=== PATIENT | female | born 2005 | race Caucasian/White ===

== ENCOUNTER 2024-10-04 23:51 | Emergency (ER) | payer OTHER, SELFPAY ==
[2024-10-05 00:06] VITALS: BP 112/67; PULSE 87; RESP 16; TEMP 37; O2SAT 99; BMI 19.6
== END 2024-10-05 03:35 | disposition left against medical advice (07) ==
LOC: HO.ED 10-05 03:23
PROVIDERS: Emergency Provider Emergency Medicine
DX: H92.01 Otalgia, right ear (principal); Z53.21 Procedure and treatment not carried out due to patient leaving prior to being seen by health care provider
CPT/HCPCS: 99281

== ENCOUNTER 2024-12-24 14:33 | Outpatient (AMB) | payer OTHER, SELFPAY ==
--- NOTE | 2024-12-24 14:42 | A.OFFPC_ITS ---
Vital Signs 12/24/24 14:48 Height 5 ft 6 in Weight 121 lb 6 oz BMI 19.6 BP 102/58 L Blood Pressure Location Rt brachial Position Sitting Respiration 12 Pulse 87 Pulse Source Pulse Oximeter Pulse Oximetry (%) 98 Oxygen Delivery Method Room Air Intake Visit Reasons: transverse abdominal muscle surgeon est care Allergies No Known Allergies Allergy (Unverified 10/05/24 00:08) Medication List - Last Reconciled 12/24/24 by Dinah Richmond PA-C sertraline mg PO DAILY Tobacco use date assessed: 12/24/24 Dental Screening Dental Screen Date: 12/24/24 Did you have a dental visit in the last 12 months?: Yes Did you have a dental problem in the last 6 months where you did not have access to dental care?: No Was dental information given to patient?: Patient has dentist HPI transverse abdominal muscle surgeon est care HPI Details Patient is a 19-year-old female who presents today for a new patient visit. She is transferring from [facility]: she is currently on sertaline 25 mg and doing well. Booking Officer: Never had a Pap smear. Not currently sexually active but currently in a relationship and debating becoming sexually active. She is interested in the idea of starting medication for prevention of but is not sure which way to go with this. Fam hx: paternal grandfather had colon ca at age 70 PFS Surgical History (Updated 12/24/24 @ 14:54 by Minna Yi CMA) No pertinent past surgical history Family History (Updated 12/24/24 @ 14:53 by Minna Yi CMA) Maternal Grandmother Anxiety Paternal Uncle Schizoaffective disorder Father Colon cancer Other FH: mental illness Social History (Updated 12/24/24 @ 14:54 by Minna Yi CMA) Housing: House Alcohol intake: current Patient Tobacco Use Status: Never used Tobacco e-Cigarette/Vaping Use: Never Used Second Hand Smoke Exposure: No service: No Current occupational status: employed Current occupation: [employer] Current occupational exposures/hazards: No Cognitive needs: No Hearing needs: No Vision needs: No Questionnaire PHQ-9 Over the last 2 weeks, how often have you been bothered by any of the following problems? 1. Little interest or pleasure in doing things: not at all 2. Feeling down, depressed, or hopeless: several days 3. Trouble falling or staying asleep, or sleeping too much: several days 4. Feeling tired or having little energy: several days 5. Poor appetite or overeating: not at all 6. Feeling bad about yourself - or that you are a failure or have let yourself or your family down: not at all 7. Trouble concentrating on things, such as reading the newspaper or watching television: not at all 8. Moving or speaking so slowly that other people could have noticed. Or the opposite - being so fidgety or restless that you have been moving around a lot more than usual: not at all 9. Thoughts that you would be better off or of hurting yourself in some way: not at all Total score: 3 Depression Screening Interpretation: Positive (states weather related) Depression Screening Follow-up: Existing condition, In treatment and Follow-up Visit Requested Depression Screening Done: Yes 23694 - PHQ-9 Billing: Yes Source: Developed by Drs. Paolo Graff, Alicja Ochoa, Milad Chamorro and colleagues, with an educational blayne from [employer]. Thrive Questionnaire Date Thrive assessed: 12/18/24 I am a: Patient What is your living situation today?: I have a steady place to live Within the past 12 months, did the food you bought not last and you didn't have the money to get more?: Never true Within the past 12 months, did you worry whether your food would run out before you got money to buy more?: Never true Do you have trouble paying for medicines?: No Do you have trouble getting transportation to medical appointments?: No Do you have trouble paying your heating and electricity bill?: No Do you have trouble taking care of your child, family member or friend?: No Do you have trouble with day-to-day activities such as bathing, preparing meals, shopping, managing finances, etc.?: No Are you currently unemployed and looking for a job?: No Are you interested in more education?: No Please select the resources that you would like help with: None Currently or been in a relationship where the following occur: No concerns reported THRIVE Score: 0 AUDIT C Alcohol Use Questionnaire (AUDIT-C) 1. How often do you have a drink containing alcohol?: Monthly or less 2. How many drinks containing alcohol do you have on a typical day when you are drinking?: 3 or 4 3. How often do you have six or more drinks on one occasion?: Never Total Score: 2 STEVEN-7 AMB Questionnaire STEVEN-7 Date STEVEN - 7 assessed: 12/24/24 Feeling nervous, anxious, or on edge: 1 = Several days Not being able to stop or control worryin = Several days Worrying too much about different things: 1 = Several days Trouble relaxin = Several days Being so restless that it is hard to sit still: 0 = Not at all Becoming easily annoyed or irritable: 1 = Several days Feeling afraid as if something awful might happen: 1 = Several days Total STEVEN-7 score (0-4 normal; 5-9 mild; 10-14 moderate; 15-21 severe): 6 Source: Developed by Drs. Paolo Graff, Alicja Ochoa, Milad Chamorro and colleagues, with an educational blayne from [employer]. STEVEN-7 Assessment Billing STEVEN-7 Assessment Tool: STEVEN-7 Assessment 79754 Physical exam (Primary Care) Vital Signs: Last Vital Signs Pulse 87 12/24/24 14:48 Resp 12 12/24/24 14:48 BP 102/58 L 12/24/24 14:48 Pulse Ox 98 12/24/24 14:48 Oxygen Delivery Method Room Air 12/24/24 14:48 BMI result Body Mass Index 19.6 Tobacco/Smoking Status: Tobacco use Status Tobacco use date assessed 12/24/24 12/24/24 14:51 Patient Tobacco Use Status Never used Tobacco 12/24/24 14:54 e-Cigarette/Vaping Use Never Used 12/24/24 14:54 PHQ-9: PHQ-9 Score PHQ-9: Total score 3 12/24/24 14:56 Depression Screening Interpretation: Positive (states weather related) Depression Screening Follow-up: Existing condition, In treatment and Follow-up Visit Requested Thrive Assessment: Date of Thrive Assessment Date Thrive assessed 12/18/24 12/24/24 14:44 Currently or been in a relationship where the following occur: No concerns reported Const Orientation/consciousness: patient oriented x3 HENMT Ears: hearing grossly normal bilaterally Neck Thyroid: Thyroid normal Lymphatic: no lymphadenopathy noted Resp Auscultation: clear to auscultation bilaterally Cardio Rate: regular rate Rhythm: regular rhythm Heart sounds: S1 normal heart sound present and S2 normal heart sound present GI Inspection: Yes normal to inspection Palpation (GI): Soft to palpation and Other GI palpation findings present (nontender, no cva tenderness) Auscultation: normoactive bowel sounds Rectal Exam - Female: deferred Skin General skin exam: no rashes or lesions noted Neuro General: patient oriented x3, gait normal and no focal motor deficits Coding Level of Care Code New Pt Level 3 (42116) Complex EM visit Add On G2211 Diagnoses ROSAMARIA (iron deficiency anemia) D50.9 Generalized anxiety disorder F41.1 Additional Codes STEVEN-7 Assessment Billing - SETVEN-7 Assessment Tool: STEVEN-7 Assessment 54823 ([id number]) PHQ-9 - 06181 - PHQ-9 Billing: Yes ([id number]) Assessment & Plan Assessment & Plan (1) ROSAMARIA (iron deficiency anemia): Code(s): D50.9 - Iron deficiency anemia, unspecified Category: Medical Plan: Labs ordered today. We will follow up pending test results (2) Generalized anxiety disorder: Code(s): F41.1 - Generalized anxiety disorder Category: Medical Plan: Continue sertraline Orders: Orders Complete Blood Count Auto Diff Today D50.9 - Iron deficiency anemia, unspecified, F41.1 - Generalized anxiety disorder, Z13.220 - Encounter for screening for lipoid disorders IRON PROFILE Today D50.9 - Iron deficiency anemia, unspecified, F41.1 - Generalized anxiety disorder, Z13.220 - Encounter for screening for lipoid disorders Vitamin B12 and Folate Today D50.9 - Iron deficiency anemia, unspecified, F41.1 - Generalized anxiety disorder, Z13.220 - Encounter for screening for lipoid disorders TSH reflex Free T4 Today D50.9 - Iron deficiency anemia, unspecified, F41.1 - Generalized anxiety disorder, Z13.220 - Encounter for screening for lipoid disorders Comprehensive [place]. Panel Fast Today D50.9 - Iron deficiency anemia, unspecified, F41.1 - Generalized anxiety disorder, Z13.220 - Encounter for screening for lipoid disorders Lipid Panel Today D50.9 - Iron deficiency anemia, unspecified, F41.1 - Generalized anxiety disorder, Z13.220 - Encounter for screening for lipoid disorders Referrals 2 [facility] Referral Z01.419 - Encounter for gynecological examination (general) (routine) without abnormal findings Medications: New sertraline 25 mg PO DAILY 90 tabs 3RF
[2024-12-24 14:48] VITALS: BP 102/58; PULSE 87; RESP 12; O2SAT 98; BMI 19.6
--- OUTSIDE RECORDS SUMMARY | 2024-12-24 17:14 | XMS_ITS | Clinical Summary ---
Author Organization [facility] Address [address] [place] [phone] Phone Care Team Providers Care Instructor Flying Name Role Phone Unavailable Primary Care Provider Unavailabl e Allergies No known active allergies Medications Vitamins 28-0.8 MG tabletIndication s:Fatigue, unspecified type,Iron deficiency TAKE 1 TABLET BY MOUTH EVERY DAY 90 tablet 2 Active Additional Information Patient not taking.Reported on 04/12/2023 Mefenamic Acid 250 MG capsuleIndicatio ns:Dysmenorrhea Take 1 capsule by mouth 3 (three) times a day as needed (menstrual cramps). 28 capsule 3 3 Active Additional Information Patient not taking.Reported on 08/23/2023 sertraline 25 MG tabletIndication s:Other mixed anxiety disorders Take 1 tablet (25 mg total) by mouth once daily. 90 tablet 2 4 Active ferrous gluconate 324 (38 Fe) MG tabletIndication s:Iron deficiency Take 1 tablet (324 mg total) by mouth daily with breakfast. 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 Benign and not concerning for any genetic syndrome. Assessment & Plan (04/12/2023 11:01 AM EDT): See Sydnie Ochoa Weight loss 04/12/2023 Overview (04/15/2024): Is not ill appearing. No obvious increased loss or decreased intake, save says ate less with anxiety/panic in [place]. Probably true but should rule out hypo/hyper glycemia (DM), inflammatory disease, thyroid dysfunction, also check vitamin d 05/29: all labs normal, may be skipping meals 04/29: not sick but lost a little wt. Sips meals. Assessment & Plan (04/15/2024 2:35 PM EDT): Make sure not to skip meals and eat enough Assessment & Plan (08/25/2023 12:13 PM EST): Has resolved Assessment & Plan (05/31/2023 7:23 PM EDT): Am unsure why is losing wt, ?skipping meals. Suggested protein shakes midday, make sure not to skip meal Assessment & Plan (04/12/2023 2:51 PM EDT): See labs, diet discussed, importance of f/u stressed. Generalized anxiety disorder 06/13/2018 Overview (04/15/2024): Diagnosed with separation anxiety, school phobia,panic attacks by DG 06/11/18, started on sertraline 25mg at that time. Did well with relaxation rx, and skill building seen off and on, still with some anxiety sx but overall doing well. 11/08/21: Now doing very well, on low dose sertraline, despite no f/u in a year 04/28: no follow up with me for 17 months. Not doing well. 08/29: now doing well, enjoying school, work, family, friends, no panic attacks since trip to [place] in the summer. 11/30: continues to do well. Would like to stay on low dose sertraline. 04/29: going through some rough patches but no panic attacks, is turning to people who love me like family. Had issues with a relationship with a young man. Now broke up. Would like to see a therapist, not increase her med. Assessment & Plan (04/15/2024 2:33 PM EDT): Contact Celestina Linares or Cassie Johnny , , and we will also help. Assessment & Plan (12/06/2023 4:09 PM EST): Keep up the good work! Enjoy your working out/running as a meditative practice. Assessment & Plan (08/23/2023 4:24 PM EST): Doing very well. Continue present plan, anxiety sx discussed. Assessment & Plan (05/31/2023 4:48 PM EDT): Doing better now. Continue sertraline. Get fresh air, exercise. Practice relaxation, with music. Assessment & Plan (04/12/2023 10:56 AM EDT): Take a full dose of sertraline. Work on your relaxation skills. See a therapist: Yoana Gray: Assessment & Plan (11/22/2021 10:25 AM EST): Will wean to one half of a tab of sertraline. Continue to do everything you're doing, but get more fresh air. Take fish oil, twice a day. Consider counseling. Assessment & Plan (11/09/2021 9:48 AM EST): Continue med, and all the good work you are doing. Will follow up at Well visit. Remember that you need to come in to see me every 3 months, however. Assessment & Plan (11/16/2020 10:07 AM EST): Practice the diaphragmatic breathing, and imagery around singing, supported by your friends in the choir, and by God. In your journal, write down several things you are grateful for every day, and one thing that happened that was unexpected. Get out for fresh air and exercise daily. See our therapist Trang Otero. Assessment & Plan (07/20/2020 8:00 AM EDT): Generally doing well, but still with some anxious sx, preoccupations, though better on sertraline. I reviewed deep relaxation breathing on Starfish pose, suggested doing this three times a day and addressing anxiety head on, agree with confiding in trusted elder - MGM. Will do earlier f/u - 1 month Assessment & Plan (03/29/2020 10:18 AM EDT): Is doing great. Continue Sertraline. Keep up a regular schedule as though still in school, except on weekends, do your school work, go outside, exercise, go to bed at a reasonable hour On line, sing, play music, dance if you like, have a family dinner, have alone time. General Guidelines: www.healthychildren.org Nature and Gardening: Https://[place].[employer]/ResourceType/infosheet/, Https://WoraPay; www.childrenandnature.org Www.natureplayqld.org.au (in [place], still good for here) Https://Arboribus.org/ Academic and creative: www.Nema Labs.org; www.blog.Qnary.org Tips for online learning: www.SkyJam Drawing: On YouTube: Lunch Doodle with moWillems, and Draw everyday with EFRAÍN, also www.Euro[employer]ital BITEX Physical Activity [place] CellVir -Like them for workouts Www.Sicubo.[employer] Reaching out: www.Weevesforpeaceglobal.org Music: [employer] Quaranthemes with Bryant Joshua 6-9am, with sing along . Look for local music, arts, theater, kids stuff streaming on line Assessment & Plan (08/07/2018 1:46 PM EDT): Managed by Dr. Gray. Doing much better on sertraline, though did endorse worry a lot often on YPSC-17, but better per patient. Still has paranoia (didn't want to eat the candy last night from Halloween due concern that something might be in them). Also, appetite is back and she has gained weight since last visit (when this was a concern). Resolved Problems Problem Noted Date Diagnosed Date Resolved Date Panic attacks 04/12/2023 08/23/2023 Overview (04/12/2023): Had panic attacks on trip to [place], see history, when had stress of mom's fall, and drive [place], had decreased sertraline, not in counseling Assessment & Plan (08/23/2023 4:24 PM EST): Better now. Assessment & Plan (05/31/2023 4:46 PM EDT): Better now. Assessment & Plan (04/12/2023 2:49 PM EDT): See anxiety disorders above, needs to take full 25 mg, begin counseling, importance of follow up stressed COVID-19 virus infection 11/22/2021 Overview (11/22/2021): In May,, mild illness Menorrhagia with regular cycle 08/07/2018 04/15/2024 Overview (04/15/2024): NSAIDs, heating pads. 04/28: recurrent, sister, age 28 with endometriosis, rare at this age. Stress may play a role 05/29: better with ponstel, discussed OCP but is looking into depo 08/29: says periods are better, still deciding on control, gets some cramps. But not very painful, still heavy. Changed dx 12/28: menses not painful but heavy, 7 days. Will check iron, cbc 04/29: menses now normal Assessment & Plan (12/06/2023 4:11 PM EST): Make sure to get plenty of iron in your diet Assessment & Plan (08/23/2023 4:26 PM EST): Make sure to get lots of iron in diet. Use control if you have sexual activity. Assessment & Plan (05/31/2023 7:24 PM EDT): See above. Assessment & Plan (04/12/2023 2:53 PM EDT): Take a vitamin b complex, try ponstel, work on your anxiety, eat well, gain some weight, consider oral contraceptives, and then if not improving, trans vaginal US Assessment & Plan (11/22/2021 9:54 AM EST): Better now. Assessment & Plan (11/09/2021 9:49 AM EST): Better now Assessment & Plan (11/15/2020 9:55 PM EST): Seems better now. Assessment & Plan (08/07/2018 1:45 PM EDT): Given heavy period, will check CBC. I also discussed further testing (coagulation studies, vWD studies), but mom doesn't think this is necessary. Sleep disturbance 06/13/2018 07/03/2018 Overview (06/13/2018): Melatonin 5mg Encounters Date Type Department Care Team Description 11/03/2024 Telephone [facility] [address] [place] [address] Jenni Orourke MD PE 10/14/2024 Telephone [facility] [address] [place] [address] Provider, MD Janine medical records 10/04/2024 11:51 PM EST - 10/05/2024 3:35 AM EST Hospital Encounter [facility] - Patient Ping from Last 3 Months Immunizations Immunization Administration Dates Next Due DTaP 5 08/05/2007, 5,01/04/2004,11/03,2003 HPV Vaccine 9 Valent 04/29/2017,08/22/2016 Hep A, ped/adol 08/09/2015,04/03/2011 Hep B, ped/adol 04/03/2004,01/04/2004,2003 Hib (HbOC) 03/01/2005 Hib (PRP-T) 01/04/2004,2003,2003 IPV 08/05/2007, 5,04/03/2004,09/15 Influenza, injectable, quadrivalent 08/09/2015 Influenza, injectable, quadr ivalent, preservative free 09/01/2019,08/07/2018,08/22/2016 Influenza, intranasal, quadrivalent 08/04/2013 Influenza, intranasal, trivalent 07/13/2011 MMR 01/09/2005 MMRV 08/05/2007 Meningococcal B Trumenba 04/12/2023,11/22/2021 Meningococcal Conj (Menactra) MCV4P 09/01/2019,1 10/09/2014 Pneumococcal Conjugate 04/16/2005,2004,2003,09/15 Tdap 08/09/2015 Varicella 01/09/2005 Family History Medical History Relation Name Comments No Known Problems Father Aleksandar No Known Problems Mother Jie No Known Problems Sister Naila Relation Name Status Comments Father Aleksandar Alive Father: Alive a nd well Father's Brother Paternal un lj: Schizophrenia Maternal Grandmother Materna l grandmother: Depression, Anxiety Mother Jie Alive Mother: Rheumat oid arthritis Other No family histo ry of Thyroid disease, No family history of *Sudden /AL under 55, No family history of Migraines, No family history of Asthma, No family history of *CVA/Stroke, No family history of Diabetes mellitus, No family history of Seizure disorder, No family history of Developmental dislocation of hip, No family history of Hyperlipidemia, No family history of Strabismus, No family history of *Heart Disease, No family history of Deafness, No family history of Obesity, No family history of ADD/ADHD, No family history of Cancer Sister Naila Alive Sister: Alive a nd well Social History Tobacco Use Types Packs/Day Years Used Date Smoking Tobacco: Never Smokeless Tobacco: Never Tobacco Cessation:Counseling Given: Yes Comments:Never smoker Alcohol Use Standard Drinks/Week Comments No 0 (1 standard drink = 0.6 oz pur e alcohol) Hunger/Food Answer Date Recorded In the last 12 months, did y ou or your family ever eat less than you felt you should because there wasn't enough money for food? No 04/15/2024 Stable Housing Answer Date Recorded Are you worried that in the next 2 months you may not have stable housing? No 04/15/2024 Transportation Concerns Answer Date Rec orded In the last 12 months, have you or your family ever had to go without healthcare because you didn't have a way to get there? No 04/15/2024 Hazards in Home Answer Date Recorded Think about the place you li ve. Do you have problems with any of the following? Pests (mice or roaches), mold, no/not working smoke detectors, water leaks, no window guards. No 2023 Financing Utilities Answer Date Recorde d In the last 12 months, has t he electric, gas, oil, or water company threatened to shut off your services in your home? No 04/15/2024 Safety at Home Answer Date Recorded Are you or your family worried about feeling saf e in your home? No 04/15/2024 Outside Support Answer Date Recorded Do you feel that you need mo re support from other people or programs to help you care for yourself or your family? No 04/15/2024 Understanding Health Concerns Answer Da te Recorded Do you need help understandi ng your or your child's healthcare needs (diagnosis, medications, plan, etc.)? No 04/15/2024 Financing Health Concerns Answer Date R ecorded In the last 12 months, was t here a time when your child needed to see a doctor or get medications or supplies but could not because of cost? No 04/15/2024 Missing School or Work Answer Date Hector rded Did you or your child miss s chool or work because of a health problem that could have been avoided? No 04/15/2024 Child Education Answer Date Recorded Do you have concerns about y our/your child's learning or behavior in school, preschool, or daycare? No 04/15/2024 Comments No Sex and Gender Information Value Date Recorded Sex Assigned at Female 11/15/2020 9:44 PM EST Legal Sex Female 4:57 PM EDT Gender Identity Female 11/15/2020 9:44 PM EST Sexual Orientation Straight 11/15/2020 9: 44 PM EST Last Filed Vital Signs Vital Sign Reading Time Taken Comments Blood Pressure 97/63 04/15/2024 1:46 PM EDT Pulse 99 04/15/2024 1:46 PM EDT Temperature 36.3 ??C (97.3 ??F) 04/18/2023 10:52 AM E DT Respiratory Rate - - Oxygen Saturation - - Inhaled Oxygen Concentration - - Weight 50.5 kg (111 lb 6.4 oz) 04/15/2024 1:46 P M EDT Height 168.5 cm (5' 6.34 ) 04/15/2024 1:46 PM ED T Body Mass Index 17.8 04/15/2024 1:46 PM EDT Plan of Treatment Health Maintenance Due Date Last Done Comments Influenza Vaccines (#1) 2024 09/01/20 19, 08/07/2018, 08/22/2016, Additional history exists COVID-19 Vaccine (2023-2 5 season) 2024 11/07/2021, 10/10/2021 DTaP,Tdap,and Td Vaccines (7 - Td or Tdap) 08/09/2025 08/09/2015, 08/05/2007, 01/09/2005, Additional history exists Hepatitis B Vaccines Completed 04/03/2004, 01/04/2004, 2003 HIB Vaccines Completed 03/01/2005, 12/07, 2003, Additional history exists Pneumococcal Vaccine Completed 04/16/2005, 03/01/2005, 2003, Additional history exists IPV Vaccines Completed 08/05/2007, 02/2005, 04/03/2004, Additional history exists MMR Vaccines Completed 08/05/2007, 01/09/2005 Varicella Vaccines Completed 08/05/2007, 01/09/2005 Hepatitis A Vaccines Completed 08/09/2015, 04/03/20 11 HPV Vaccines Completed 04/29/2017, 08/22/2016 Meningococcal Vaccine Completed 09/01/2019, 015 Men B Vaccine Completed 04/12/2023, 11/22/2021 Procedures * Due to [place] state law, this organization might not be sharing sensitive test results. Procedure Name Priority Date/Time Associated Diagnosis Comments CHLAMYDIA AND GONORRHEA, AMPLIFIED Routine 04/15/2024 2:46 PM EDT Encounter for screening examination for chlamydial infection from Last 3 Months or Most Recently Relevant to Health Maintenance Results * Due to [place] state law, this organization might not be sharing sensitive test results. * Chlamydia and Gonorrhoea, Amplified (Urine) (04/15/2024 2:46 PM EDT) C trach TYRELL Negative Negative [facility] N gonorrhoeae TYRELL Negative Negative [facility] Urine (Urine, Random (not clean void)) 04/15/2024 2:46 PM EDT 04/15/2024 Comment:UR Narrative [facility] - 04/16/2024 4:08 PM EDT Performed at: ??01 - [facility], [address], [place], [place] [id number] Battery Container Tester: Levon Aguilar MD, Phone: ??[phone] us Niles Gray MD LAB MICROBIOLOGY - GENERAL OR DERABLES Final Result [facility] [address] [place] [address] from Last 3 Months or Most Recently Relevant to Health Maintenance
--- OUTSIDE RECORDS SUMMARY | 2024-12-24 17:14 | XMS_ITS | Encounter Summary ---
Author Organization [facility] Address [address] [place] [address] Phone Care Team Providers Care Automotive Welder Name Role Phone Provider, Janine NICHOLAS Primary Care Provider [phone] Reason for Visit * Reason Comments Med Refill Encounter Details Date Type Department Care Team ([facility] st Contact Info) Description 08/24/2019 Refill [facility] [address] [place] [address] Niles Rosales MD [address] [place] [address] Other mixed anxiety disorders Social History Tobacco Use Types Packs/Day Years Used Date Smoking Tobacco: Never Smokeless Tobacco: Never Comments:Never smoker Alcohol Use Standard Drinks/Week Comments No 0 (1 standard drink = 0.6 oz pur e alcohol) Hunger/Food Answer Date Recorded No 10/22/2018 Stable Housing Answer Date Recorded 0 10/22/2018 Transportation Concerns Answer Date Rec orded No 10/22/2018 Hazards in Home Answer Date Recorded No 10/22/2018 Financing Utilities Answer Date Recorde d No 10/22/2018 Safety at Home Answer Date Recorded No 10/22/2018 Outside Support Answer Date Recorded No 10/22/2018 Understanding Health Concerns Answer Da te Recorded No 10/22/2018 Financing Health Concerns Answer Date R ecorded No 10/22/2018 Missing School or Work Answer Date Hector rded No 10/22/2018 Comments Unknown Sex and Gender Information Value Date Recorded Sex Assigned at Female 11/15/2020 9:44 PM EST Legal Sex Female 4:57 PM EDT Gender Identity Female 11/15/2020 9:44 PM EST Sexual Orientation Straight 11/15/2020 9: 44 PM EST documented as of this encounter Miscellaneous Notes * Telephone Encounter - Meg Nino LPN - 08/24/2019 9:23 AM EST [facility] PCP BLL: pharm fax refill request sertaline. Pt has PE for 09/01. EH documented in this encounter Plan of Treatment Not on file documented as of this encounter Visit Diagnoses Diagnosis Other mixed anxiety disorders documented in this encounter Care Teams Automotive Welder Relationship Specialty Start Date End Date Provider, MD Janine [address] [place] [address] PCP - General Pediatrics 09/26/24 10/13/24 documented as of this encounter
--- OUTSIDE RECORDS SUMMARY | 2024-12-24 17:14 | XMS_ITS | Encounter Summary ---
Author Organization [facility] Address [address] [place] [address] Phone Care Team Providers Care Clinical Physician Assistant Name Role Phone Provider, Janine NICHOLAS Primary Care Provider [phone] Encounter Details Date Type Department Care Team (Late st Contact Info) Description 04/23/2012 Documentation [facility] [place] [address] [place] [address] Family Medicine, Physician [address] [place] [phone] Social History Tobacco Use Types Packs/Day Years Used Date Smoking Tobacco: Never Assessed Comments Unknown Sex and Gender Information Value Date Recorded Sex Assigned at Female 11/15/2020 9:44 PM EST Legal Sex Female 4:57 PM EDT Gender Identity Female 11/15/2020 9:44 PM EST Sexual Orientation Straight 11/15/2020 9: 44 PM EST documented as of this encounter Plan of Treatment Not on file documented as of this encounter Visit Diagnoses Not on filedocumented in this encounter Care Teams Clinical Physician Assistant Relationship Specialty Start Date End Date Provider, MD Janine [address] [place] [address] PCP - General Pediatrics 09/26/24 10/13/24 documented as of this encounter
--- OUTSIDE RECORDS SUMMARY | 2024-12-24 17:14 | XMS_ITS | Encounter Summary ---
Author Organization [facility] Address [address] [place] [address] Phone Care Team Providers Care Breaker Mechanic Name Role Phone Provider, Janine NICHOLAS Primary Care Provider Reason for Visit * Reason Comments Med Refill Encounter Details Date Type Department Care Team ([facility] st Contact Info) Description 09/13/2024 Refill [facility] [address] [place] [address] Nilse Gray MD [address] [place] [address] Other mixed anxiety disorders Social History Tobacco [...] encounter Miscellaneous Notes * Telephone Encounter - Niles Gray MD - 09/13/2024 12:50 PM EST NO SHOWed x 2 in July. No show=No refill. * Telephone Encounter - Marta De Leon LPN - 09/13/2024 11:02 AM EST Refill request for Sertraline. Last PE 04/15/24/JOCELYN documented in this encounter Plan of Treatment Not on file documented as of this encounter Visit Diagnoses Diagnosis Other mixed anxiety disorders documented in this encounter Care Teams Breaker Mechanic Relationship Specialty Start Date End Date Provider, MD Janine [address] [place] [address] PCP - General Pediatrics 09/26/24 10/13/24 documented as of this encounter
--- OUTSIDE RECORDS SUMMARY | 2024-12-24 17:14 | XMS_ITS | Encounter Summary ---
Author Organization [facility] Address [address] [place] [address] Phone Care Team Providers Care Thermometer Tester Name Role Phone Provider, Janine NICHOLAS Primary Care Provider Encounter Details Date Type Department Care Team (Late st Contact Info) Description 08/10/2015 Documentation [facility] [place] [address] [place] [address] Family Medicine, Physician [address] [phone] Social History Tobacco Use Types Packs/Day Years [...] on filedocumented in this encounter Care Teams Thermometer Tester Relationship Specialty Start Date End Date Provider, MD Janine [address] [place] [address] PCP - General Pediatrics 09/26/24 10/13/24 documented as of this encounter
--- OUTSIDE RECORDS SUMMARY | 2024-12-24 17:14 | XMS_ITS | Encounter Summary ---
Author Organization [facility] Address [address] [place] [address] Phone Care Team Providers Care Wire Charger Name Role Phone Provider, Janine NICHOLAS Primary Care Provider [phone] Encounter Details Date Type Department Care Team (Late st Contact Info) Description 07/18/2011 Documentation [facility] [place] [address] [place] [address] Family Medicine, Physician [address] [place] [phone] Social History Tobacco Use Types Packs/Day Years [...] on filedocumented in this encounter Care Teams Wire Charger Relationship Specialty Start Date End Date Provider, MD Janine [address] [place] [address] PCP - General Pediatrics 09/26/24 10/13/24 documented as of this encounter
--- OUTSIDE RECORDS SUMMARY | 2024-12-24 17:14 | XMS_ITS | Encounter Summary ---
Author Organization [facility] Address [address] [place] [address] Phone Care Team Providers Care Chief Psychology Name Role Phone Provider, Janine NICHOLAS Primary Care Provider [phone] Encounter Details Date Type Department Care Team (Late st Contact Info) Description 07/18/2011 Documentation [facility] [place] Medicine [address] [place] [address] Family Medicine, Physician [address] [place] [phone] Social History Tobacco Use Types Packs/Day Years [...] on filedocumented in this encounter Care Teams Chief Psychology Relationship Specialty Start Date End Date Provider, MD Janine [address] [place] [address] PCP - General Pediatrics 09/26/24 10/13/24 documented as of this encounter
--- OUTSIDE RECORDS SUMMARY | 2024-12-24 17:14 | XMS_ITS | Encounter Summary ---
Author Organization [facility] Address [address] [place] [address] Phone Care Team Providers Care Surgical Scheduler Name Role Phone Provider, Janine NICHOLAS Primary Care Provider [phone] Reason for Visit * Reason Comments Med Refill Encounter Details Date Type Department Care Team ([facility] st Contact Info) Description 09/23/2021 Refill [facility] [address] [place] [address] Niles Gray MD [address] [place] [address] Other mixed anxiety disorders Social History Tobacco [...] there wasn't enough money for food? No 09/01/2019 Stable Housing Answer Date Recorded Are you worried that in the next 2 months you may not have stable housing? No 09/01/2019 Transportation Concerns Answer Date Rec orded In the last 12 months, have you or your family ever had to go without healthcare because you didn't have a way to get there? No 09/01/2019 Hazards in Home Answer Date Recorded Think about the place you li ve. Do you have problems with any of the following? Pests (mice or roaches), mold, no/not working smoke detectors, water leaks, no window guards. No 2018 Financing Utilities Answer Date Recorde d In the last 12 months, has t he electric, gas, oil, or water company threatened to shut off your services in your home? No 09/01/2019 Safety at Home Answer Date Recorded Are you or your family worried about feeling saf e in your home? No 09/01/2019 Outside Support Answer Date Recorded Do you feel that you need mo re support from other people or programs to help you care for yourself or your family? No 09/01/2019 Understanding Health Concerns Answer Da te Recorded Do you need help understandi ng your or your child's healthcare needs (diagnosis, medications, plan, etc.)? No 09/01/2019 Financing Health Concerns Answer Date R ecorded In the last 12 months, was t here a time when your child needed to see a doctor or get medications or supplies but could not because of cost? No 09/01/2019 Missing School or Work Answer Date Hector rded Did you or your child miss s chool or work because of a health problem that could have been avoided? No 09/01/2019 Comments No Sex and Gender Information Value Date Recorded Sex Assigned at Female 11/15/2020 9:44 PM EST Legal Sex Female 4:57 PM EDT Gender Identity Female 11/15/2020 9:44 PM EST Sexual Orientation Straight 11/15/2020 9: 44 PM EST documented as of this encounter Miscellaneous Notes * Telephone Encounter - Niles Gray MD - 09/26/2021 5:27 PM EST Patient not seen since last November, no showed for a f/u appt then cancelled and has no pending appt's. Should have f/u every Three months while on SSRI's. Needs appt before any refill. I would be glad to see her at a late am or late pm appt. * Telephone Encounter - Tyler Ramirez LPN - 09/25/2021 11:20 AM EST [facility] is requesting a refill on sertraline 25 mg. Last PE was 11/15/20. Transferred pt up front to schedule PE. documented in this encounter Plan of Treatment Not on file documented as of this encounter Visit Diagnoses Diagnosis Other mixed anxiety disorders documented in this encounter Care Teams Surgical Scheduler Relationship Specialty Start Date End Date Provider, MD Janine [address] [place] [address] PCP - General Pediatrics 09/26/24 10/13/24 documented as of this encounter
--- OUTSIDE RECORDS SUMMARY | 2024-12-24 17:14 | XMS_ITS | Encounter Summary ---
Author Organization [facility] Address [address] [place] [address] Phone Care Team Providers Care Tile Mechanic Name Role Phone Provider, Janine NICHOLAS Primary Care Provider [phone] Encounter Details Date Type Department Care Team (Late st Contact Info) Description 08/23/2016 Documentation [facility] [place] [address] [place] [address] Family Medicine, Physician [address] [place] [phone] Social History Tobacco Use Types Packs/Day Years Used Date Smoking Tobacco: Never Comments:Never smoker Comments Unknown Sex and Gender Information Value [...] on filedocumented in this encounter Care Teams Tile Mechanic Relationship Specialty Start Date End Date Provider, MD Janine [address] [place] [address] PCP - General Pediatrics 09/26/24 10/13/24 documented as of this encounter
--- OUTSIDE RECORDS SUMMARY | 2024-12-24 17:14 | XMS_ITS | Encounter Summary ---
Author Organization [facility] Address [address] [place] [address] Phone Care Team Providers Care Warehouse Receiving Supervisor Name Role Phone Provider, Janine NICHOLAS Primary Care Provider [phone] Encounter Details Date Type Department Care Team (Late st Contact Info) Description 08/05/2013 Documentation [facility] [place] [address] [place] [address] Family Medicine, Physician [address] [place], [place] [phone] Social History Tobacco Use Types Packs/Day Years [...] on filedocumented in this encounter Care Teams Warehouse Receiving Supervisor Relationship Specialty Start Date End Date Provider, MD Janine [address] [place] [address] PCP - General Pediatrics 09/26/24 10/13/24 documented as of this encounter
--- OUTSIDE RECORDS SUMMARY | 2024-12-24 17:14 | XMS_ITS | Encounter Summary ---
Author Organization [facility] Address [address] [place] [address] Phone Care Team Providers Care Door Closer Name Role Phone Provider, Janine NICHOLAS Primary Care Provider [phone] Encounter Details Date Type Department Care Team ([facility] st Contact Info) Description 05/23/2017 Conversion Encounter [facility] [address] [address] Social History Tobacco Use Types Packs/Day Years Used Date Smoking Tobacco: Never Comments:Never smoker Comments Unknown Sex and Gender Information Value Date Recorded Sex Assigned at Female 11/15/2020 9:44 PM EST Legal Sex Female 4:57 PM EDT Gender Identity Female 11/15/2020 9:44 PM EST Sexual Orientation Straight 11/15/2020 9 :44 PM EST documented as of this encounter Plan of Treatment Not on file documented as of this encounter Visit Diagnoses Not on filedocumented in this encounter Care Teams Door Closer Relationship Specialty Start Date End Date Provider, MD Janine [address] [place] [phone] PCP - General Pediatrics 09/26/24 10/13/24 documented as of this encounter
--- OUTSIDE RECORDS SUMMARY | 2024-12-24 17:14 | XMS_ITS | Encounter Summary ---
Author Organization [facility] Address [address] [place] [address] Phone Care Team Providers Care Field Services Analyst Name Role Phone Provider, Janine NICHOLAS Primary Care Provider [phone] Encounter Details Date Type Department Care Team (Late st Contact Info) Description 04/04/2011 Documentation [facility] [place] [address] [place] [address] Family Medicine, Physician [address], [place] [phone] Social History Tobacco Use Types Packs/Day Years [...] on filedocumented in this encounter Care Teams Field Services Analyst Relationship Specialty Start Date End Date Provider, MD Janine [address] [place] [address] PCP - General Pediatrics 09/26/24 10/13/24 documented as of this encounter
--- OUTSIDE RECORDS SUMMARY | 2024-12-24 17:14 | XMS_ITS | Encounter Summary ---
Author Organization [facility] Address [address] [place] [address] Phone Care Team Providers Care Solution Mixer Name Role Phone Provider, Janine NICHOLAS Primary Care Provider [phone] Encounter Details Date Type Department Care Team (Late st Contact Info) Description 04/23/2012 Documentation [facility] [place] [address] [place] [address] Family Medicine, Physician [address] [place], [place] [phone] Social History Tobacco Use Types Packs/Day Years [...] on filedocumented in this encounter Care Teams Solution Mixer Relationship Specialty Start Date End Date Provider, MD Janine [address] [place] [address] PCP - General Pediatrics 09/26/24 10/13/24 documented as of this encounter
--- OUTSIDE RECORDS SUMMARY | 2024-12-24 17:14 | XMS_ITS | Encounter Summary ---
Author Organization [facility] Address [address] [place] [address] Phone Care Team Providers Care Stock Puller Name Role Phone Provider, Janine NICHOLAS Primary Care Provider [phone] Encounter Details Date Type Department Care Team (Late st Contact Info) Description 08/23/2016 Documentation [facility] [place] [address] [place] [address] Family Medicine, Physician [address], [place] [phone] Social History Tobacco Use Types Packs/Day Years [...] on filedocumented in this encounter Care Teams Stock Puller Relationship Specialty Start Date End Date Provider, MD Janine [address] [place] [address] PCP - General Pediatrics 09/26/24 10/13/24 documented as of this encounter
--- OUTSIDE RECORDS SUMMARY | 2024-12-24 17:14 | XMS_ITS | Encounter Summary ---
Author Organization [facility] Address [address] [place] [address] Phone Care Team Providers Care Fifth Hand Name Role Phone Provider, Janine NICHOLAS Primary Care Provider [phone] Reason for Visit * Reason Comments Med Refill Encounter Details Date Type Department Care Team ([facility] st Contact Info) Description 06/23/2019 Refill [facility] [place] [address] [place] [address] Niles Gray MD [address] [place] [address] Other mixed anxiety disorders Social History Tobacco [...] encounter Miscellaneous Notes * Telephone Encounter - Marta De Leon LPN - 06/23/2019 7:15 AM EDT Pt of [facility]- refill request for Sertraline. Last PE 08/07/18, has pending PE appt on 09/01/19/JOCELYN documented in this encounter Plan of Treatment Not on file documented as of this encounter Visit Diagnoses Diagnosis Other mixed anxiety disorders documented in this encounter Care Teams Fifth Hand Relationship Specialty Start Date End Date Provider, MD Janine [address] [place] [address] PCP - General Pediatrics 09/26/24 10/13/24 documented as of this encounter
--- OUTSIDE RECORDS SUMMARY | 2024-12-24 17:14 | XMS_ITS | Encounter Summary ---
Author Organization [facility] Address [address] [place] [address] Phone Care Team Providers Care Quarry Equipment Operator Name Role Phone Provider, Janine NICHOLAS Primary Care Provider [phone] Encounter Details Date Type Department Care Team (Late st Contact Info) Description 08/23/2016 Documentation [facility] [place] Medicine [address] [place] [address] Family Medicine, Physician [address], [place] [phone] Social History Tobacco Use Types Packs/Day Years [...] on filedocumented in this encounter Care Teams Quarry Equipment Operator Relationship Specialty Start Date End Date Provider, MD Janine [address] [place] [address] PCP - General Pediatrics 09/26/24 10/13/24 documented as of this encounter
--- OUTSIDE RECORDS SUMMARY | 2024-12-24 17:14 | XMS_ITS | Encounter Summary ---
Author Organization [facility] Address [address] [place] [address] Phone Care Team Providers Care Hematology Supervisor Name Role Phone Provider, Janine NICHOLAS Primary Care Provider [phone] Encounter Details Date Type Department Care Team (Late st Contact Info) Description 04/04/2011 [place] [facility] [place] [address] [place] [address] Family Medicine, Physician [address] [phone] Social History Tobacco Use Types Packs/Day Years [...] on filedocumented in this encounter Care Teams Hematology Supervisor Relationship Specialty Start Date End Date Provider, MD Janine [address] [place] [address] PCP - General Pediatrics 09/26/24 10/13/24 documented as of this encounter
--- OUTSIDE RECORDS SUMMARY | 2024-12-24 17:14 | XMS_ITS | Encounter Summary ---
Author Organization [facility] Address [address] [place] [address] Phone Care Team Providers Care Network Security Analyst Name Role Phone Provider, Janine NICHOLAS Primary Care Provider [phone] Encounter Details Date Type Department Care Team (Late st Contact Info) Description 01/19/2010 Documentation [facility] [place] [address] [place] [address] Family Medicine, Physician [address] [place], [place] [phone] Social History Tobacco Use Types Packs/Day Years [...] on filedocumented in this encounter Care Teams Network Security Analyst Relationship Specialty Start Date End Date Provider, MD Janine [address] [place] [address] PCP - General Pediatrics 09/26/24 10/13/24 documented as of this encounter
--- OUTSIDE RECORDS SUMMARY | 2024-12-24 17:14 | XMS_ITS | Encounter Summary ---
Author Organization [facility] Address [address] [place] [address] Phone Care Team Providers Care Television Cable Installer Name Role Phone Provider, Janine NICHOLAS Primary Care Provider [phone] Reason for Visit * Reason Comments Med Refill Encounter Details Date Type Department Care Team ([facility] Contact Info) Description 02/25/2022 Refill [facility] [place] [address] [place] [address] [place] Gray MD [address] [place] [address] Fatigue, unspecified type; Iron deficiency Social History Tobacco Use Types Packs/Day Years [...] there wasn't enough money for food? No 11/22/2021 Stable Housing Answer Date Recorded Are you worried that in the next 2 months you may not have stable housing? No 11/22/2021 Transportation Concerns Answer Date Rec orded In the last 12 months, have you or your family ever had to go without healthcare because you didn't have a way to get there? No 11/22/2021 Hazards in Home Answer Date Recorded Think about the place you li ve. Do you have problems with any of the following? Pests (mice or roaches), mold, no/not working smoke detectors, water leaks, no window guards. No 2021 Financing Utilities Answer Date Recorde d In the last 12 months, has t he electric, gas, oil, or water company threatened to shut off your services in your home? No 11/22/2021 Safety at Home Answer Date Recorded Are you or your family worried about feeling saf e in your home? No 11/22/2021 Outside Support Answer Date Recorded Do you feel that you need mo re support from other people or programs to help you care for yourself or your family? No 11/22/2021 Understanding Health Concerns Answer Da te Recorded Do you need help understandi ng your or your child's healthcare needs (diagnosis, medications, plan, etc.)? No 11/22/2021 Financing Health Concerns Answer Date R ecorded In the last 12 months, was t here a time when your child needed to see a doctor or get medications or supplies but could not because of cost? No 11/22/2021 Missing School or Work Answer Date Hector rded Did you or your child miss s chool or work because of a health problem that could have been avoided? No 11/22/2021 Comments No Sex and Gender Information Value Date Recorded Sex Assigned at Female 11/15/2020 9:44 PM EST Legal Sex Female 4:57 PM EDT Gender Identity Female 11/15/2020 9:44 PM EST Sexual Orientation Straight 11/15/2020 9: 44 PM EST documented as of this encounter Miscellaneous Notes * Telephone Encounter - Jenni Orourke MD - 02/27/2022 1:50 PM EDT Sure; thanks; I'll send the rx * Telephone Encounter - Myla Wright MA - 02/27/2022 1:16 PM EDT Will do, I miguel thought the same thing. So, pt states she is not . Her iron was low. She was to follow up so I sent her to apts to book a f/u for next available. Not sure if you want to sendone refill until she can be seen . I do not know how far he is booking out. * Telephone Encounter - Jenni Orourke MD - 02/27/2022 12:38 PM EDT I certainly don't mind filling them, but she should be getting vitamins from her electronics engineering professor. Is she ? Or was he just giving them as a precaution? Could you check with her? And if she's , can you have her call her electronics engineering professor? * Telephone Encounter - Myla Wright MA - 02/27/2022 9:55 AM EDT Pharm refill for pre janice vitamins. Message to covering provider. DG out. documented in this encounter Plan of Treatment Not on file documented as of this encounter Visit Diagnoses Diagnosis Fatigue, unspecified type Iron deficiency Disorders of iron metabolism documented in this encounter Care Teams Television Cable Installer Relationship Specialty Start Date End Date Provider, MD Janine [address] [place] [address] [place] [id number] PCP - General Pediatrics 09/26/24 10/13/24 documented as of this encounter
--- OUTSIDE RECORDS SUMMARY | 2024-12-24 17:14 | XMS_ITS | Encounter Summary ---
Author Organization [facility] Address [address] [place] [address] Phone Care Team Providers Care Automotive Glass Technician Name Role Phone Provider, Janine NICHOLAS Primary Care Provider [phone] Encounter Details Date Type Department Care Team (Late st Contact Info) Description 08/10/2015 Documentation [facility] [place] [address] [place] [address] Family Medicine, Physician [address] [place], [place] [phone] Social History Tobacco Use Types Packs/Day Years [...] on filedocumented in this encounter Care Teams Automotive Glass Technician Relationship Specialty Start Date End Date Provider, MD Janine [address] [place] [address] PCP - General Pediatrics 09/26/24 10/13/24 documented as of this encounter
--- OUTSIDE RECORDS SUMMARY | 2024-12-24 17:14 | XMS_ITS | Encounter Summary ---
Author Organization [facility] Address [address] [place] [address] Phone Care Team Providers Care Wildlife Refuge Manager Name Role Phone Provider, Janine NICHOLAS Primary Care Provider [phone] Encounter Details Date Type Department Care Team (Late st Contact Info) Description 04/29/2017 Documentation [facility] Family Medicine [address] [place] [address] Family Medicine, Physician [address] [place] [phone] Social History Tobacco Use Types Packs/Day Years [...] on filedocumented in this encounter Care Teams Wildlife Refuge Manager Relationship Specialty Start Date End Date Provider, MD Janine [address] [place] [address] PCP - General Pediatrics 09/26/24 10/13/24 documented as of this encounter
--- OUTSIDE RECORDS SUMMARY | 2024-12-24 17:14 | XMS_ITS | Encounter Summary ---
Author Organization [facility] Address [address] [place] [address] Phone Care Team Providers Care Engineering Assistant Name Role Phone Provider, Janine NICHOLAS Primary Care Provider [phone] Encounter Details Date Type Department Care Team (Late st Contact Info) Description 08/05/2013 Documentation [facility] [place] Family Medicine [address] [place] [address] Family Medicine, Physician [address] [place] [phone] Social History Tobacco Use Types Packs/Day Years [...] on filedocumented in this encounter Care Teams Engineering Assistant Relationship Specialty Start Date End Date Provider, MD Janine [address] [place] [address] PCP - General Pediatrics 09/26/24 10/13/24 documented as of this encounter
--- OUTSIDE RECORDS SUMMARY | 2024-12-24 17:14 | XMS_ITS | Encounter Summary ---
Author Organization [facility] Address [address] [place] [address] Phone Care Team Providers Care Freelance Web Designer Name Role Phone Provider, Janine NICHOLAS Primary Care Provider [phone] Encounter Details Date Type Department Care Team (Late st Contact Info) Description 04/04/2011 Documentation [facility] Family Medicine [address] [place] [address] Family Medicine, Physician [address] [place], [place] [phone] Social History Tobacco Use Types Packs/Day Years [...] on filedocumented in this encounter Care Teams Freelance Web Designer Relationship Specialty Start Date End Date Provider, MD Janine [address] [place] [address] PCP - General Pediatrics 09/26/24 10/13/24 documented as of this encounter
--- OUTSIDE RECORDS SUMMARY | 2024-12-24 17:14 | XMS_ITS | Encounter Summary ---
Author Organization [facility] Address [address] [place] [address] Phone Care Team Providers Care Light Adjuster Name Role Phone Provider, Janine NICHOLAS Primary Care Provider [phone] Encounter Details Date Type Department Care Team (Late st Contact Info) Description 01/06/2010 Documentation [facility] [place] [address] [place] [address] Family Medicine, Physician [address] [place], [place] [phone] Social History Tobacco Use Types Packs/Day Years [...] on filedocumented in this encounter Care Teams Light Adjuster Relationship Specialty Start Date End Date Provider, MD Janine [address] [place] [address] PCP - General Pediatrics 09/26/24 10/13/24 documented as of this encounter
== END 2024-12-24 15:14 | disposition home or self-care (01) ==
LOC: HO.HMCFM 14:34
PROVIDERS: PCP Physician Assistant; Visit Provider Physician Assistant
DX: D50.9 Iron deficiency anemia, unspecified (principal); F41.1 Generalized anxiety disorder

== ENCOUNTER → 2024-12-24 14:33 | Outpatient (BNVA) | payer OTHER, SELFPAY | PROVIDERS: PCP Physician Assistant; Visit Provider Physician Assistant | DX: D50.9 Iron deficiency anemia, unspecified (principal); F41.1 Generalized anxiety disorder; Z79.899 Other long term (current) drug therapy | CPT/HCPCS: 96127 ==

== ENCOUNTER 2025-02-22 09:17 | Outpatient (AMB) | payer OTHER, SELFPAY ==
--- OUTSIDE RECORDS SUMMARY | 2025-02-22 09:28 | XMS_ITS | Encounter Summary ---
Author Organization [facility] Address [address] [place] [address] Phone Care Team Providers Care Dyeing Machine Feeder Name Role Phone Provider, Janine NICHOLAS Primary Care Provider [phone] Reason for Visit * Reason Comments Med Refill Encounter Details Date Type Department Care Team ([facility] st Contact Info) Description 06/23/2019 Refill [facility] - [address] [address] [place] Gray MD Other mixed anxiety disorders Social History Tobacco [...] disorders documented in this encounter Care Teams Dyeing Machine Feeder Relationship Specialty Start Date End Date Provider, MD Janine [address] [place] [address] PCP - General Pediatrics 09/26/24 10/13/24 documented as of this encounter
--- OUTSIDE RECORDS SUMMARY | 2025-02-22 09:28 | XMS_ITS | Clinical Summary ---
Author Organization [facility] Address [address] [place] [address] Phone Care Team Providers Care Bookkeeping Service Sales Agent Name Role Phone Unavailable Primary Care Provider [...] save says ate less with anxiety/panic in [place]. Probably true but should rule out hypo/hyper [...] friends, no panic attacks since trip to [place] in the summer. 11/30: continues to do [...] time. General Guidelines: www.healthychildren.org Nature and Gardening: Https://[employer]cafegive/ResourceType/infosheet/, Https://XtremIO; www.childrenandnature.org Www.natureplayqld.org.au (in [place], still good for here) Https://PushToTest.org/ Academic and creative: www.Audiam.org; www.blog.Vigour.io.org Tips for online learning: www.Yodlee Drawing: On YouTube: Lunch Doodle with moWillems, and Draw everyday with EFRAÍN, also www.Xiaozhu.com Physical Activity Austin Antria -Like them for workouts Www.zahnarztzentrum.ch.Paradise Home Properties Reaching out: www.Urlistsforpeaceglobal.org Music: [employer]SI Quaranthemes with Bryant Joshua 6-9am, [...] (04/12/2023): Had panic attacks on trip to [place], see history, when had stress of mom's [...] disturbance 06/13/2018 07/03/2018 Overview (06/13/2018): Melatonin 5mg Immunizations Immunization Administration Dates Next Due DTaP [...] Thyroid disease, No family history of *Sudden /IA under 55, No family history of Migraines, [...] 08/07/2018, 08/22/2016, Additional history exists COVID-19 Vaccine (3 - 2023-2 5 season) 2024 11/07/2021, 10/10/2021 DTaP,Tdap,and Td [...] Completed 04/12/2023, 11/22/2021 Procedures * Due to [place] Vid[place] law, this organization might not be sharing sensitive test results. Procedure Name Priority Date/Time Associated Diagnosis Comments CHLAMYDIA AND GONORRHEA, AMPLIFIED Routine 04/15/2024 2:46 PM EDT Encounter for screening examination for chlamydial infection from Last 3 Months or Most Recently Relevant to Health Maintenance Results * Due to [place] Vid[place] law, this organization might not be sharing sensitive test results. * Chlamydia and Gonorrhoea, Amplified (Urine) (04/15/2024 2:46 PM EDT) C trach TYRELL Negative Negative [facility] N gonorrhoeae TYRELL Negative Negative [facility] Urine (Urine, Random (not clean void)) 04/15/2024 2:46 PM EDT 04/15/2024 Comment:UR Narrative [facility] - 04/16/2024 4:08 PM EDT Performed at: ??01 - [facility] [address], [address], [place] ??[id number] Executive Meeting Manager: Levon Aguilar MD, Phone: ??[phone] us [place] Gray MD LAB MICROBIOLOGY - GENERAL OR DERABLES Final Result [facility] [address] [place] [address] from Last 3 Months or Most Recently Relevant to Health Maintenance
--- OUTSIDE RECORDS SUMMARY | 2025-02-22 09:28 | XMS_ITS | Encounter Summary ---
Author Organization [facility] Address [address] [place] [address] Phone Care Team Providers Care Control Clerk Food And Beverage Name Role Phone Provider, Janine NICHOLAS Primary Care Provider [phone] Reason for Visit * Reason Comments Med Refill Encounter Details Date Type Department Care Team ([facility] st Contact Info) Description 08/24/2019 Refill [facility] [place] [address] [place] [address] [place] Rosales MD [address] [place] [address] Other mixed anxiety disorders Social History Tobacco [...] Nino LPN - 08/24/2019 9:23 AM EST [facility] PCP BLL: pharm fax refill request sertaline. Pt has PE for 09/01. EH documented in this encounter Plan of Treatment Not on file documented as of this encounter Visit Diagnoses Diagnosis Other mixed anxiety disorders documented in this encounter Care Teams Control Clerk Food And Beverage Relationship Specialty Start Date End Date Provider, MD Janine [address] [place] [address] PCP - General Pediatrics 09/26/24 10/13/24 documented as of this encounter
--- OUTSIDE RECORDS SUMMARY | 2025-02-22 09:29 | XMS_ITS | Encounter Summary ---
Author Organization [facility] Address [address] [place] [address] Phone Care Team Providers Care Energy Broker Name Role Phone Provider, Janine NICHOLAS Primary Care Provider [phone] Encounter Details Date Type Department Care Team (Late st Contact Info) Description 04/23/2012 Documentation [facility] [place] Family Medicine [address] [place] [address] Family Medicine, Physician [address] [place], [place] [phone] Social History Tobacco Use Types Packs/Day Years [...] on filedocumented in this encounter Care Teams Energy Broker Relationship Specialty Start Date End Date Provider, MD Janine [address] [place] [address] PCP - General Pediatrics 09/26/24 10/13/24 documented as of this encounter
--- OUTSIDE RECORDS SUMMARY | 2025-02-22 09:29 | XMS_ITS | Encounter Summary ---
Author Organization [facility] Address [address] [place] [address] Phone Care Team Providers Care Pilot Can Router Name Role Phone Provider, Janine NICHOLAS Primary Care Provider Encounter Details Date Type Department Care Team (Late st Contact Info) Description 01/06/2010 Documentation [facility] [place] Family Medicine [address] [place] [address] Family Medicine, Physician [address] [place], [place] [phone] Social History Tobacco Use Types Packs/Day Years [...] on filedocumented in this encounter Care Teams Pilot Can Router Relationship Specialty Start Date End Date Provider, MD Janine [address] [place] [address] PCP - General Pediatrics 09/26/24 10/13/24 documented as of this encounter
--- OUTSIDE RECORDS SUMMARY | 2025-02-22 09:29 | XMS_ITS | Encounter Summary ---
Author Organization [facility] Address [address] [place] [address] Phone Care Team Providers Care Manager Java Name Role Phone Provider, Janine NICHOLAS Primary Care Provider [phone] Encounter Details Date Type Department Care Team (Late st Contact Info) Description 04/29/2017 Documentation [facility] Family Medicine [address] [place] [address] Family Medicine, Physician [address] [place], [place] [phone] Social History Tobacco Use Types Packs/Day Years [...] on filedocumented in this encounter Care Teams Manager Java Relationship Specialty Start Date End Date Provider, MD Janine [address] [place] [address] PCP - General Pediatrics 09/26/24 10/13/24 documented as of this encounter
--- OUTSIDE RECORDS SUMMARY | 2025-02-22 09:29 | XMS_ITS | Encounter Summary ---
Author Organization [facility] Address [address] [place] [address] Phone Care Team Providers Care Gas Blender Name Role Phone Provider, Janine NICHOLAS Primary Care Provider [phone] Reason for Visit * Reason Comments Med Refill Encounter Details Date Type Department Care Team ([facility] Contact Info) Description 02/25/2022 Refill [facility] [address] [place] [address] [place] Gray MD Fatigue, unspecified type; Iron deficiency Social History [...] she should be getting vitamins from her shake table operator. Is she ? Or was he just giving them as a precaution? Could you check with her? And if she's , can you have her call her shake table operator? * Telephone Encounter - Myla Wright MA - 02/27/2022 9:55 AM EDT Pharm refill for pre janice vitamins. Message to covering provider. DG out. documented in this encounter Plan of Treatment Not on file documented as of this encounter Visit Diagnoses Diagnosis Fatigue, unspecified type Iron deficiency Disorders of iron metabolism documented in this encounter Care Teams Gas Blender Relationship Specialty Start Date End Date Provider, MD Janine [address] [place] [address] PCP - General Pediatrics 09/26/24 10/13/24 documented as of this encounter
--- OUTSIDE RECORDS SUMMARY | 2025-02-22 09:29 | XMS_ITS | Encounter Summary ---
Author Organization [facility] Address [address] [place] [address] Phone Care Team Providers Care Through Freight Engineer Name Role Phone Provider, Janine NICHOLAS Primary Care Provider [phone] Encounter Details Date Type Department Care Team (Late st Contact Info) Description 04/04/2011 Documentation [facility] [place] [address] [place] [address] Family Medicine, Physician [address] [place], [place] [phone] Social History Tobacco Use Types Packs/Day Years [...] on filedocumented in this encounter Care Teams Through Freight Engineer Relationship Specialty Start Date End Date Provider, MD Janine [address] [place] [address] PCP - General Pediatrics 09/26/24 10/13/24 documented as of this encounter
--- OUTSIDE RECORDS SUMMARY | 2025-02-22 09:29 | XMS_ITS | Encounter Summary ---
Author Organization [facility] Address [address] [place] [address] Phone Care Team Providers Care Living Advisor Name Role Phone Provider, Janine NICHOLAS Primary Care Provider [phone] Encounter Details Date Type Department Care Team (Late st Contact Info) Description 04/04/2011 Documentation [facility] [place] Family Medicine [address] [place] [address] Family Medicine, Physician [address] [place], [place] [phone] Social History Tobacco Use Types Packs/Day Years [...] on filedocumented in this encounter Care Teams Living Advisor Relationship Specialty Start Date End Date Provider, MD Janine [address] [place] [address] PCP - General Pediatrics 09/26/24 10/13/24 documented as of this encounter
--- OUTSIDE RECORDS SUMMARY | 2025-02-22 09:29 | XMS_ITS | Encounter Summary ---
Author Organization [facility] Address [address] [place] [address] Phone Care Team Providers Care Healthcare Corporate Account Director Name Role Phone Provider, Janine NICHOLAS Primary Care Provider [phone] Encounter Details Date Type Department Care Team ([facility] st Contact Info) Description 05/23/2017 Conversion Encounter [facility] [address] [address] Social History Tobacco Use Types Packs/Day Years [...] on filedocumented in this encounter Care Teams Healthcare Corporate Account Director Relationship Specialty Start Date End Date Provider, MD Janine [address] [place] [address] PCP - General Pediatrics 09/26/24 10/13/24 documented as of this encounter
--- OUTSIDE RECORDS SUMMARY | 2025-02-22 09:29 | XMS_ITS | Encounter Summary ---
Author Organization [facility] Address [address] [place] [address] Phone Care Team Providers Care Ride Attendant Name Role Phone Provider, Janine NICHOLAS Primary Care Provider [phone] Encounter Details Date Type Department Care Team (Late st Contact Info) Description 04/23/2012 Documentation [facility] [place] [address] [place] [address] Family Medicine, Physician [address] [place], [place] [phone] Social History Tobacco Use Types Packs/Day Years [...] on filedocumented in this encounter Care Teams Ride Attendant Relationship Specialty Start Date End Date Provider, MD Janine [address] [place] [address] PCP - General Pediatrics 09/26/24 10/13/24 documented as of this encounter
--- OUTSIDE RECORDS SUMMARY | 2025-02-22 09:29 | XMS_ITS | Encounter Summary ---
Author Organization [facility] Address [address] [place] [address] Phone Care Team Providers Care Practicing Md Anesthesiologist Name Role Phone Provider, Janine NICHOLAS Primary Care Provider [phone] Encounter Details Date Type Department Care Team (Late st Contact Info) Description 08/23/2016 Documentation [facility] [place] [address] [place] [address] Family Medicine, Physician [address] [place], [place] [phone] Social History Tobacco Use Types Packs/Day Years [...] on filedocumented in this encounter Care Teams Practicing Md Anesthesiologist Relationship Specialty Start Date End Date Provider, MD Janine [address] [place] [address] PCP - General Pediatrics 09/26/24 10/13/24 documented as of this encounter
--- OUTSIDE RECORDS SUMMARY | 2025-02-22 09:29 | XMS_ITS | Encounter Summary ---
Author Organization [facility] Address [address] [place] [address] Phone Care Team Providers Care Supervisor Cytology Name Role Phone Provider, Janine NICHOLAS Primary Care Provider [phone] Encounter Details Date Type Department Care Team (Late st Contact Info) Description 04/04/2011 Documentation [facility] [place] Family Medicine [address] [place] [address] Family Medicine, Physician [address] [place], [place] [phone] Social History Tobacco Use Types Packs/Day Years [...] on filedocumented in this encounter Care Teams Supervisor Cytology Relationship Specialty Start Date End Date Provider, MD Janine [address] [place] [address] PCP - General Pediatrics 09/26/24 10/13/24 documented as of this encounter
--- OUTSIDE RECORDS SUMMARY | 2025-02-22 09:29 | XMS_ITS | Encounter Summary ---
Author Organization [facility] Address [address] [place] [address] Phone Care Team Providers Care Coin Machine Service Repairer Name Role Phone Provider, Janine NICHOLAS Primary Care Provider Reason for Visit * Reason Comments Med Refill Encounter Details Date Type Department Care Team ([facility] st Contact Info) Description 09/13/2024 Refill [facility] [address] [place] [address] [place] Gray MD Other mixed anxiety disorders [...] disorders documented in this encounter Care Teams Coin Machine Service Repairer Relationship Specialty Start Date End Date Provider, MD Janine [address] [place] [phone] PCP - General Pediatrics 09/26/24 10/13/24 documented as of this encounter
--- OUTSIDE RECORDS SUMMARY | 2025-02-22 09:29 | XMS_ITS | Encounter Summary ---
Author Organization [facility] Address [address] [place] [address] Phone Care Team Providers Care Screen Printing Inspector Name Role Phone Provider, Janine NICHOLAS Primary Care Provider [phone] Encounter Details Date Type Department Care Team (Late st Contact Info) Description 08/10/2015 Documentation [facility] Family Medicine [address] [place] [address] Family Medicine, Physician [address] [place], [place] [phone] Social History Tobacco Use Types Packs/Day Years [...] on filedocumented in this encounter Care Teams Screen Printing Inspector Relationship Specialty Start Date End Date Provider, MD Janine [address] [place] [address] PCP - General Pediatrics 09/26/24 10/13/24 documented as of this encounter
--- OUTSIDE RECORDS SUMMARY | 2025-02-22 09:29 | XMS_ITS | Encounter Summary ---
Author Organization [facility] Address [address] [place] [address] Phone Care Team Providers Care Superintendent Pressure Name Role Phone Provider, Janine NICHOLAS Primary Care Provider [phone] Encounter Details Date Type Department Care Team (Late st Contact Info) Description 07/18/2011 Documentation [facility] [place] Family Medicine [address] [place] [address] Family Medicine, Physician [address], [place] [phone] Social History Tobacco Use Types Packs/Day Years [...] on filedocumented in this encounter Care Teams Superintendent Pressure Relationship Specialty Start Date End Date Provider, MD Janine [address] [place] [address] PCP - General Pediatrics 09/26/24 10/13/24 documented as of this encounter
--- OUTSIDE RECORDS SUMMARY | 2025-02-22 09:29 | XMS_ITS | Encounter Summary ---
Author Organization [facility] Address [address] [place] [address] Phone Care Team Providers Care Dragline Oiler Name Role Phone Provider, Janine NICHOLAS Primary Care Provider [phone] Reason for Visit * Reason Comments Med Refill Encounter Details Date Type Department Care Team ([facility] st Contact Info) Description 09/23/2021 Refill [facility] [address] [place] [address] Niles Gray MD Other mixed anxiety disorders [...] disorders documented in this encounter Care Teams Dragline Oiler Relationship Specialty Start Date End Date Provider, MD Janine [address] [place] [phone] PCP - General Pediatrics 09/26/24 10/13/24 documented as of this encounter
--- OUTSIDE RECORDS SUMMARY | 2025-02-22 09:29 | XMS_ITS | Encounter Summary ---
Author Organization [facility] Address [address] [place] [address] Phone Care Team Providers Care Executive Recruiter Name Role Phone Provider, Janine NICHOLAS Primary Care Provider [phone] Encounter Details Date Type Department Care Team (Late st Contact Info) Description 08/23/2016 Documentation [facility] Family Medicine [address] [place] [address] Family Medicine, Physician [address] [place] [phone] Social History Tobacco Use Types Packs/Day Years [...] on filedocumented in this encounter Care Teams Executive Recruiter Relationship Specialty Start Date End Date Provider, MD Janine [address] [place] [address] PCP - General Pediatrics 09/26/24 10/13/24 documented as of this encounter
--- OUTSIDE RECORDS SUMMARY | 2025-02-22 09:29 | XMS_ITS | Encounter Summary ---
Author Organization [facility] Address [address] [place] [address] Phone Care Team Providers Care Supervisor Chlorine Liquefaction Name Role Phone Provider, Janine NICHOLAS Primary Care Provider [phone] Encounter Details Date Type Department Care Team (Late st Contact Info) Description 01/19/2010 [place] [facility] [place] [address] [place] [address] Family Medicine, Physician [address] [phone] Social History Tobacco Use Types Packs/Day Years [...] filedocumented in this encounter Care Teams Supervisor Chlorine Liquefaction Relationship Specialty Start Date End Date Provider, MD Janine [address] [place] [address] PCP - General Pediatrics 09/26/24 10/13/24 documented as of this encounter
--- OUTSIDE RECORDS SUMMARY | 2025-02-22 09:29 | XMS_ITS | Encounter Summary ---
Author Organization [facility] Address [address] [place] [address] Phone Care Team Providers Care Nuclear Operations Specialist Name Role Phone Provider, Janine NICHOLAS Primary Care Provider [phone] Encounter Details Date Type Department Care Team (Late st Contact Info) Description 08/05/2013 [place]ation [facility] [place] [address] [place] [address] Family Medicine, Physician [address] [phone] Social History Tobacco Use Types Packs/Day Years [...] on filedocumented in this encounter Care Teams Nuclear Operations Specialist Relationship Specialty Start Date End Date Provider, MD Janine [address] [place] [address] PCP - General Pediatrics 09/26/24 10/13/24 documented as of this encounter
--- OUTSIDE RECORDS SUMMARY | 2025-02-22 09:29 | XMS_ITS | Encounter Summary ---
Author Organization [facility] Address [address] [place] [address] Phone Care Team Providers Care Diagnostic Technologist Name Role Phone Provider, Janine NICHOLAS Primary Care Provider [phone] Encounter Details Date Type Department Care Team (Late st Contact Info) Description 08/05/2013 Documentation [facility] [place] [address] [place] [address] Family Medicine, Physician [address] [place] [phone] Social History Tobacco Use Types Packs/Day Years [...] on filedocumented in this encounter Care Teams Diagnostic Technologist Relationship Specialty Start Date End Date Provider, MD Janine [address] [place] [address] PCP - General Pediatrics 09/26/24 10/13/24 documented as of this encounter
--- OUTSIDE RECORDS SUMMARY | 2025-02-22 09:29 | XMS_ITS | Encounter Summary ---
Author Organization [facility] Address [address] [place] [address] Phone Care Team Providers Care Senior Support Engineer Name Role Phone Provider, Janine NICHOLAS Primary Care Provider [phone] Encounter Details Date Type Department Care Team (Late st Contact Info) Description 07/18/[address] [facility] [place] Family Medicine [address] [place] [address] Family Medicine, Physician [address] [place] [phone] Social History Tobacco Use Types Packs/Day Years [...] on filedocumented in this encounter Care Teams Senior Support Engineer Relationship Specialty Start Date End Date Provider, MD Janine [address] [place] [address] PCP - General Pediatrics 09/26/24 10/13/24 documented as of this encounter
--- OUTSIDE RECORDS SUMMARY | 2025-02-22 09:29 | XMS_ITS | Encounter Summary ---
Author Organization [facility] Address [address] [place] [address] Phone Care Team Providers Care Manager Flight Operations Name Role Phone Provider, Janine NICHOLAS Primary Care Provider [phone] Encounter Details Date Type Department Care Team (Late st Contact Info) Description 08/23/2016 Documentation [facility] [place] Family Medicine [address] [place] [address] Family Medicine, Physician [address] [place] [phone] Social History Tobacco Use Types Packs/Day Years [...] filedocumented in this encounter Care Teams Manager Flight Operations Relationship Specialty Start Date End Date Provider, MD Janine [address] [place] [address] PCP - General Pediatrics 09/26/24 10/13/24 documented as of this encounter
--- OUTSIDE RECORDS SUMMARY | 2025-02-22 09:29 | XMS_ITS | Encounter Summary ---
Author Organization [facility] Address [address] [place] [address] Phone Care Team Providers Care Resources Representative Name Role Phone Provider, Janine NICHOLAS Primary Care Provider [phone] Encounter Details Date Type Department Care Team (Late st Contact Info) Description 08/10/2015 Documentation [facility] [place] Family Medicine [address] [place] [address] Family Medicine, Physician [address] [place], [place] [phone] Social History Tobacco Use Types Packs/Day Years [...] on filedocumented in this encounter Care Teams Resources Representative Relationship Specialty Start Date End Date Provider, MD Janine [address] [place] [address] PCP - General Pediatrics 09/26/24 10/13/24 documented as of this encounter
--- NOTE | 2025-02-22 09:30 | A.OFFVIS_ITS ---
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 She had some concerns in that she wonders about irregular periods though she thinks hers are fairly regular as she says ?they come around the 14th of the month?. She says her sister has PCOS and endometriosis not laparoscopically diagnosed. She does tell me that her sister's overweight and is in a weight loss program She has become sexually active with her new boyfriend this is her 1st partner. She says they use condoms but she wants to get on a more reliable method of control. She is in college on track to graduate [employer] next year. She tries to eat well and take care of herself. She has heard most about Depo-Provera and control pills and is considering both but leaning strongly towards Depo-Provera and has been doing some research about all of the methods and was aware of a lot of what I said. [facility] Surgical History No pertinent past surgical history Family History Maternal Grandmother Anxiety Paternal Uncle Schizoaffective disorder Father Colon cancer Other FH: mental illness Social History (Updated 12/24/24 @ 14:54 by Minna Yi CMA) Housing: House Alcohol intake: current Patient Tobacco Use Status: Never used Tobacco e-Cigarette/Vaping Use: Never Used Second Hand Smoke Exposure: No service: No Current occupational status: employed Current occupation: [employer] Current occupational exposures/hazards: No Cognitive needs: No Hearing needs: No Vision needs: No Female Reproductive History Menstrual Age of Menarche: 12 Duration of menses: 6-7 days Date of last menstrual period: 01/19/25 control method: none Total pregnancies: 0 Physical Exam Vital Signs: Last Vital Signs BP 104/68 02/22/25 09:34 BMI result Body Mass Index 18.6 Const General: healthy appearing, comfortable, no acute distress, well developed and alert Nutritional Appearance: average body habitus Orientation/consciousness: patient oriented x3 Limitations: no limitations HEENT Head: Yes normocephalic Neck Neck: Yes normal visual inspection Thyroid: Thyroid normal Chest Chest palpation & inspection: normal inspection of the chest Breast/axilla inspection: normal inspection of the breasts and normal inspection of the axillae Breast/axilla palpation: normal palpation of the breasts and normal palpation of the axillae Resp Effort & Inspection: normal respiratory effort GI Inspection: Yes normal to inspection, No Abdominal wall edema and No distended Palpation (GI): Soft to palpation and nontender Other: Pelvic exam deferred today as patient is on day 2 of menses she is due for her 1st Pap smear and 1st screening for STIs as she has recently become sexually active with her new boyfriend. Patient will return for this appointment when not on menses. Neuro General: patient oriented x3 Office Procedures Depo Questionnaire If YES to any of the following questions, please consult a provider. Date of last injection: 02/22/25 Date of last menstrual period: 02/19/25 Date of last gynecology exam: 02/22/25 Menstrual pattern since last injection has been: Not Applicable Irregular bleeding?: Not Applicable Breast lumps or other breast changes?: Not Applicable Changes in weight or appetite?: Not Applicable Depression or changes in mood?: Not Applicable Abnormal hair growth or loss?: Not Applicable Skin problems (rash, acne, discoloration)?: Not Applicable Pain at the injection site?: Not Applicable Headaches?: Not Applicable Nervousness?: Not Applicable Abdominal pain or cramping?: Not Applicable Dizziness or nausea?: Not Applicable Fatigue or weakness?: Not Applicable Decrease in sexual drive?: Not Applicable Chest pain or shortness of breath?: Not Applicable Swelling in arms or legs?: Not Applicable Form completed by?: Rowena Manuel LPN Office Meds Depo-Provera 150 mg/mL intramuscular syringe Performing Provider: Trang Krishnamurthy CNM [place] [facility] [facility] Administered by: Rowena Manuel LPN on 02/22/25 15:17 Dose Route Admin Location Dispensed Lot Number Expiration Date ND Dark Room Attendant 150 mg IM rt glm 1 mL [id number] 02/03/27 62697-928-17 [facility] Assessment & Plan Assessment & Plan (1) Encounter for screening examination for sexually transmitted disease: Code(s): Z11.3 - Encounter for screening for infections with a predominantly sexual mode of transmission Category: Medical (2) Well woman exam (no gynecological exam): Code(s): Z00.00 - Encounter for general adult medical examination without abnormal findings Category: Medical (3) Counseling for initiation of control method: Code(s): Z30.09 - Encounter for other general counseling and advice on contraception Category: Medical (4) Irregular menstruation, unspecified: Comment: review of last 3 menses==> 34d and 26d cycles Code(s): N92.6 - Irregular menstruation, unspecified Category: Medical Plan -I reviewed with the patient, all of the currently common used methods of control that are available. We reviewed how they work in the body, how they are taken, common side effects, uncommon side effects, precautions, and contraindications. -Discussed also factors that influence their effectiveness and use, and womens satisfaction with the method. -Discussed how each are used, and drawbacks of each method as well. -Methods covered included: condoms, control pills, control patches, control rings, Depo-Provera, Nexplanon, Mirena and Kyleena IUDs, and ParaGard IUDs. All of the above methods were covered in great detail including their side effect profiles and common experiences that women have and ways to mitigate against the negative experiences including attention to diet and exercise patient's with bleeding challenges that may occur her and efforts to time the initiation of the method to this start of the menstrual period. Had considered control pills and Depo-Provera but is highly leaning towards Depo-Provera because she takes medication for anxiety every evening and has for years and does not want to add another medication that she takes by m outh and has to remember into her life at this time. After discussion of all the side effects the effects on menses effects on bones effects on libido weight gain etc. she is very clear that she wants to try the Depo for least a while. She recently started becoming sexually active with her boyfriend and they became officially boyfriend and girlfriend recently. She would like to get checked for STIs but she is on day 2 of her menses fairly heavy and since she needs to have her 1st Pap we discussed the timing and she will return for her 1st pelvic exam sometime in the near future.. Since she is on her date 2 of her menses this is a perfect time to start the Depo-Provera which we did discuss as above.. I am sending a prescription to her pharmacy and if it is possible to have an appointment with the RN to get the shot today that would be optimal. I did order blood work for STIs as she is going to be going this week for her primary care blood work so she can get it all done together Pap smear and testing for gonorrhea chlamydia trichomoniasis will occur at the next visit Most of this visit was also spent discussing her concerns about her menstrual cycle. Her sister has PCOS her sister is also overweight and is in a weight management program and she says her sister also was told she has endometriosis though she has not had laparoscopic surgery to diagnosis. The patient herself said her periods come about every month on the though review of her last 3 cycles revealed that they came actually on December 24 for 7 days January 18 for 7 days and February 20 currently on day 2. So this yields a 34 day cycle and a 26 day cycles so a lot of Education was done trying to impart the idea that menstrual cycles do not follow the Queta and calendar and stick to a certain number of the month. In any case if she starts the Depo-Provera this will not be an opportunity to continue to track her cycles and any breakthrough bleeding she has will not be a true menses. She is interested in STI testing and she has had conversations with her partner about wanting to be safe and they are using condoms very carefully we will see her for her next visit for her 1st pelvic exam. But if she can return today for Depo that would be optimal and if not then tomorrow she is taking online courses at [employer] she is on track to graduate next year.. Orders: Orders Hepatitis B Surface Antigen Today Z11.3 - Encounter for screening for infections with a predominantly sexual mode of transmission Hepatitis C Antibody Today Z11.3 - Encounter for screening for infections with a predominantly sexual mode of transmission Syphilis Screen Today Z11.3 - Encounter for screening for infections with a predominantly sexual mode of transmission HIV Ab/Ag Today Z11.3 - Encounter for screening for infections with a predominantly sexual mode of transmission AMB Medroxyprogesterone Injection Patient Supplied Today Z30.09 - Encounter for other general counseling and advice on contraception Medications: New medroxyprogesterone (Depo-Provera) to start today w day 2 of menses 150 mg IM Q12W 1 mL 5RF Coding Level of Care Code New Pt Prev Care 18-39yr(68531 Diagnoses Encounter for screening examination for sexually transmitted disease Z11.3 Well woman exam (no gynecological exam) Z00.00 Counseling for initiation of control method Z30.09 Irregular menstruation, unspecified N92.6
[2025-02-22 09:34] VITALS: BP 104/68; BMI 18.6
== END 2025-02-22 10:16 | disposition home or self-care (01) ==
LOC: HO.HWS 09:17
PROVIDERS: PCP Physician Assistant; Visit Provider Advanced Practice Midwife
DX: Z01.419 Encounter for gynecological examination (general) (routine) without abnormal findings (principal); N92.6 Irregular menstruation, unspecified
CPT/HCPCS: 99385; 99459

== ENCOUNTER → 2025-02-22 09:17 | Outpatient (BNVA) | payer OTHER, SELFPAY | PROVIDERS: PCP Physician Assistant; Visit Provider Advanced Practice Midwife | DX: Z30.013 Encounter for initial prescription of injectable contraceptive (principal) | CPT/HCPCS: 96372; J1050 ==

== ENCOUNTER 2025-05-12 10:59 | Outpatient (AMB) | payer BC, SELFPAY ==
[2025-05-12 11:21] VITALS: BMI 18.7
--- NOTE | 2025-05-12 11:21 | AM.OFFVISNUR ---
Vital Signs 05/12/25 11:21 Height 5 ft 6 in Weight 116 lb BMI 18.7 Intake Visit Reasons: DEPO Allergies No Known Allergies Allergy (Verified 02/22/25 09:34) Nursing Note Shyann is here today with her boyfriend Charles for her Depo-Provera inj. Pt tolerated well follow up in 12 wks. Office Procedures Depo Questionnaire If YES to any of the following questions, please consult a provider. Date of last injection: 02/22/25 Date of last menstrual period: 04/26/25 Date of last gynecology exam: 02/22/25 Menstrual pattern since last injection has been: Light Irregular bleeding?: No Breast lumps or other breast changes?: No Changes in weight or appetite?: No Depression or changes in mood?: No Abnormal hair growth or loss?: No Skin problems (rash, acne, discoloration)?: No Pain at the injection site?: No Headaches?: No Nervousness?: No Abdominal pain or cramping?: No Dizziness or nausea?: No Fatigue or weakness?: No Decrease in sexual drive?: No Chest pain or shortness of breath?: No Swelling in arms or legs?: No Form completed by?: Norberto Ricardo LPN Office Meds Depo-Provera 150 mg/mL intramuscular syringe Performing Provider: Trang Krishnamurthy CNM [place] [facility] [place] [facility] Administered by: Wendi Ricardo LPN on 05/12/25 11:21 Dose Route Admin Location Dispensed Lot Number Expiration Date [facility] Psychiatric Aide 150 mg IM LGM 1 mL [id number] 09/05/27 59492-907-39 [facility] Total Dispensed Waste 1 mL 0 % Assessment & Plan Assessment & Plan Orders: Orders AMB Medroxyprogesterone Injection Patient Supplied Today Z30.09 - Encounter for other general counseling and advice on contraception Coding Level of Care Code Established Pt Est Pt Level 1 (76128) Patient Type Established History Problem Focused Exam Problem Focused Medical Decision Making Straight Forward Time Spent (min) 20
--- OUTSIDE RECORDS SUMMARY | 2025-05-12 11:41 | XMS_ITS | Encounter Summary ---
Author Organization [facility] Address [address] [place] [address] Phone Care Team Providers Care Technical Asst Name Role Phone Provider, Janine NICHOLAS Primary Care Provider [phone] Reason for Visit * Reason Comments Med Refill Encounter Details Date Type Department Care Team ([facility] st Contact Info) Description 06/23/2019 Refill [facility] - [address] [address] Niles Gray MD Other mixed anxiety disorders [...] disorders documented in this encounter Care Teams Technical Asst Relationship Specialty Start Date End Date Provider, MD Janine [address] [place] [address] PCP - General Pediatrics 09/26/24 10/13/24 documented as of this encounter
== END 2025-05-12 11:33 | disposition home or self-care (01) ==
PROVIDERS: PCP Physician Assistant; Visit Provider Advanced Practice Midwife
DX: Z30.09 Encounter for other general counseling and advice on contraception (principal)
CPT/HCPCS: 99211

== ENCOUNTER → 2025-05-12 10:59 | Outpatient (BNVA) | payer SELFPAY | PROVIDERS: PCP Physician Assistant; Visit Provider Advanced Practice Midwife | DX: Z30.42 Encounter for surveillance of injectable contraceptive (principal) | CPT/HCPCS: 96372; J1050 ==

== ENCOUNTER 2025-06-08 14:10 | Outpatient (REF) | payer BC, SELFPAY ==
--- OUTSIDE RECORDS SUMMARY | 2025-06-08 15:24 | XMS_ITS | Encounter Summary ---
Author Organization [facility] Address [address] [place] [address] Phone Care Team Providers Care Observer Gravity Prospecting Name Role Phone Provider, Janine NICHOLAS Primary Care Provider [phone] Encounter Details Date Type Department Care Team (Late st Contact Info) Description 04/23/2012 [place] [facility] [place] [address] [place] [address] Family Medicine, Physician [address] [place], [place] [phone] Social History Tobacco Use Types Packs/Day Years [...] on filedocumented in this encounter Care Teams Observer Gravity Prospecting Relationship Specialty Start Date End Date Provider, MD Janine [address] [place] [address] PCP - General Pediatrics 09/26/24 10/13/24 documented as of this encounter
--- OUTSIDE RECORDS SUMMARY | 2025-06-08 15:24 | XMS_ITS | Encounter Summary ---
Author Organization [facility] Address [address] [place] [address] Phone Care Team Providers Care Diamond Driller Helper Name Role Phone Provider, Janine NICHOLAS Primary Care Provider [phone] Encounter Details Date Type Department Care Team (Late st Contact Info) Description 04/04/2011 Documentation [facility] [place] Family Medicine [address] [place] [address] Family Medicine, Physician [address], [place] [phone] Social History Tobacco Use Types Packs/Day Years [...] on filedocumented in this encounter Care Teams Diamond Driller Helper Relationship Specialty Start Date End Date Provider, MD Janine [address] [place] [address] PCP - General Pediatrics 09/26/24 10/13/24 documented as of this encounter
--- OUTSIDE RECORDS SUMMARY | 2025-06-08 15:24 | XMS_ITS | Encounter Summary ---
Author Organization [facility] Address [address] [place] [address] Phone Care Team Providers Care Technical Assoc Name Role Phone Provider, Janine NICHOLAS Primary Care Provider [phone] Encounter Details Date Type Department Care Team (Late st Contact Info) Description 08/23/2016 [place] [facility] [place] [address] [place] [address] Family Medicine, Physician [address], [place] [phone] Social History Tobacco Use Types Packs/Day Years [...] on filedocumented in this encounter Care Teams Technical Assoc Relationship Specialty Start Date End Date Provider, MD Janine [address] [place] [address] PCP - General Pediatrics 09/26/24 10/13/24 documented as of this encounter
--- OUTSIDE RECORDS SUMMARY | 2025-06-08 15:24 | XMS_ITS | Encounter Summary ---
Author Organization [facility] Address [address] [place] [address] Phone Care Team Providers Care Dance Choreographer Name Role Phone Provider, Janine NICHOLAS Primary Care Provider [phone] Encounter Details Date Type Department Care Team (Late st Contact Info) Description 01/06/2010 Documentation [facility] [place] Family Medicine [address] [place] [address] Family Medicine, Physician [address] [place], [place] [phone] Social History Tobacco Use Types Packs/Day Years [...] on filedocumented in this encounter Care Teams Dance Choreographer Relationship Specialty Start Date End Date Provider, MD Janine [address] [place] [address] PCP - General Pediatrics 09/26/24 10/13/24 documented as of this encounter
--- OUTSIDE RECORDS SUMMARY | 2025-06-08 15:24 | XMS_ITS | Encounter Summary ---
Author Organization [facility] Address [address] [place] [address] Phone Care Team Providers Care Retail Helper Name Role Phone Provider, Janine NICHOLAS Primary Care Provider [phone] Reason for Visit * Reason Comments Med Refill Encounter Details Date Type Department Care Team ([facility] st Contact Info) Description 06/23/2019 Refill [facility] - [address] [address] Niles Gray MD Other mixed anxiety disorders [...] disorders documented in this encounter Care Teams Retail Helper Relationship Specialty Start Date End Date Provider, MD Janine [address] [place] [address] PCP - General Pediatrics 09/26/24 10/13/24 documented as of this encounter
--- OUTSIDE RECORDS SUMMARY | 2025-06-08 15:24 | XMS_ITS | Encounter Summary ---
Author Organization [facility] Address [address] [place] [address] Phone Care Team Providers Care Sem Manager Name Role Phone Provider, Janine NICHOLAS Primary Care Provider [phone] Encounter Details Date Type Department Care Team (Late st Contact Info) Description 07/18/2011 Documentation [facility] [place] [address] [place] [address] Family Medicine, Physician [address] [place], [place] [phone] Social History Tobacco Use Types Packs/Day Years [...] on filedocumented in this encounter Care Teams Sem Manager Relationship Specialty Start Date End Date Provider, MD Janine [address] [place] [address] PCP - General Pediatrics 09/26/24 10/13/24 documented as of this encounter
--- OUTSIDE RECORDS SUMMARY | 2025-06-08 15:24 | XMS_ITS | Encounter Summary ---
Author Organization [facility] Address [address] [place] [address] Phone Care Team Providers Care Sound Effects Person Name Role Phone Provider, Janine NICHOLAS Primary Care Provider [phone] Encounter Details Date Type Department Care Team (Late st Contact Info) Description 04/29/2017 Documentation [facility] [place] [address] [place] [address] Family Medicine, Physician [address] [place], [place] [phone] Social History Tobacco Use Types Packs/Day Years [...] on filedocumented in this encounter Care Teams Sound Effects Person Relationship Specialty Start Date End Date Provider, MD Janine [address] [place] [address] PCP - General Pediatrics 09/26/24 10/13/24 documented as of this encounter
--- OUTSIDE RECORDS SUMMARY | 2025-06-08 15:24 | XMS_ITS | Clinical Summary ---
Author Organization [facility] Address [address] [place] [address] Phone Care Team Providers Care Audit Intern Name Role Phone Unavailable Primary Care Provider [...] once daily. 90 tablet 2 4 Active Active Problems Problem Noted Date Diagnosed Date Caf au lait spot 04/12/2023 Overview (04/15/2024): 13.5 [...] save says ate less with anxiety/panic in [place]. Probably true but should rule out hypo/hyper [...] friends, no panic attacks since trip to [place] in the summer. 11/30: continues to do [...] PM EDT): Contact Celestina Linares or Cassie Turner , , and we will also help. [...] time. General Guidelines: www.healthychildren.org Nature and Gardening: Https://Ferric Semiconductor.org/ResourceType/infosheet/, Https://Smarter Remarketer.Second Light; www.childrenandnature.org Www.natureplayqld.org.au (in [place], still good for here) Https://MBA and Company.org/ Academic and creative: www.Atlas Spine.org; www.blog.Solmentum.org Tips for online learning: www.StockLayouts Drawing: On YouTube: Lunch Doodle with Jobaline, and Draw everyday with FinesseAble Imaging, also www.AdEspresso Physical Activity [place] LFS (Local Food [employer]) -Like them for workouts Www.Craig Wireless Reaching out: www.BliipspeaceInstahealthl.org Music: WRSI Quaranthemes with Bryant Joshua 6-9am, [...] (04/12/2023): Had panic attacks on trip to [place], see history, when had stress of mom's [...] Thyroid disease, No family history of *Sudden /[place] under 55, No family history of Migraines, [...] 99 04/15/2024 1:46 PM EDT Temperature 36.3 C (97.3 F) 04/18/2023 10:52 AM EDT Respiratory Rate - - Oxygen Saturation - - Inhaled Oxygen Concentration - - Weight 50.5 kg (111 lb 6.4 oz) 04/15/2024 1:46 P M EDT Height 168.5 cm (5' 6.34 ) 04/15/2024 1:46 PM ED T Body Mass Index 17.8 04/15/2024 1:46 PM EDT Plan of Treatment Health Maintenance Due Date Last Done Comments Influenza Vaccines (#1) 2025 09/01/20 19, 08/07/2018, 08/22/2016, Additional history exists COVID-19 Vaccine (3 - 2024-2 6 season) 2025 11/07/2021, 10/10/2021 DTaP,Tdap,and Td Vaccines (7 - [...] Completed 04/12/2023, 11/22/2021 Procedures * Due to [place] DeluxeBox law, this organization might not be sharing sensitive test results. Procedure Name Priority Date/Time Associated Diagnosis Comments CHLAMYDIA AND GONORRHEA, AMPLIFIED Routine 04/15/2024 2:46 PM EDT Encounter for screening examination for chlamydial infection from Last 3 Months or Most Recently Relevant to Health Maintenance Results * Due to [place] DeluxeBox law, this organization might not be sharing sensitive test results. * Chlamydia and Gonorrhoea, Amplified (Urine) (04/15/2024 2:46 PM EDT) C trach TYRELL Negative Negative [facility] N gonorrhoeae TYRELL Negative Negative [facility] Urine (Urine, Random (not clean void)) 04/15/2024 2:46 PM EDT 04/15/2024 Comment:UR Narrative [facility] - 04/16/2024 4:08 PM EDT Performed at: 01 - [facility] [place] [address], [address], [place], [place] [id number] Translator/Interpreter: Levon Aguilar MD, Phone: [phone] us Niles Gray MD LAB MICROBIOLOGY - GENERAL OR DERABLES Final Result [facility] [address] [place] [address] from Last 3 Months or Most Recently Relevant to Health Maintenance
--- OUTSIDE RECORDS SUMMARY | 2025-06-08 15:24 | XMS_ITS | Encounter Summary ---
Author Organization [facility] Address [address] [place] [address] Phone Care Team Providers Care Epoxy Specialist Name Role Phone Provider, Janine NICHOLAS Primary Care Provider [phone] Encounter Details Date Type Department Care Team (Late st Contact Info) Description 08/23/2016 Documentation [facility] [place] [address] [place] [address] Family Medicine, Physician [address] [place], [place] [id number] Social History Tobacco Use Types Packs/Day Years [...] on filedocumented in this encounter Care Teams Epoxy Specialist Relationship Specialty Start Date End Date Provider, MD Janine [address] [place] [address] PCP - General Pediatrics 09/26/24 10/13/24 documented as of this encounter
--- OUTSIDE RECORDS SUMMARY | 2025-06-08 15:24 | XMS_ITS | Encounter Summary ---
Author Organization [facility] Address [address] [place] [address] Phone Care Team Providers Care Readers' Advisory Service Librarian Name Role Phone Provider, Janine NICHOLAS Primary Care Provider [phone] Reason for Visit * Reason Comments Med Refill Encounter Details Date Type Department Care Team ([facility] st Contact Info) Description 08/24/2019 Refill [facility] [place] [address] [place] [address] Niles Rosales MD [address] [place] [address] Other mixed anxiety disorders Social History Tobacco [...] Nino LPN - 08/24/2019 9:23 AM EST [facility] PCP BLL: pharm fax refill request sertaline. Pt has PE for 09/01. EH documented in this encounter Plan of Treatment Not on file documented as of this encounter Visit Diagnoses Diagnosis Other mixed anxiety disorders documented in this encounter Care Teams Readers' Advisory Service Librarian Relationship Specialty Start Date End Date Provider, MD Janine [address] [place] [address] PCP - General Pediatrics 09/26/24 10/13/24 documented as of this encounter
--- OUTSIDE RECORDS SUMMARY | 2025-06-08 15:24 | XMS_ITS | Encounter Summary ---
Author Organization [facility] Address [address] [place] [address] Phone Care Team Providers Care Humane Agent Name Role Phone Provider, Janine NICHOLAS Primary Care Provider [phone] Reason for Visit * Reason Comments Med Refill Encounter Details Date Type Department Care Team ([facility] st Contact Info) Description 09/23/2021 Refill [facility] [address] [place] [address] Niles Gray MD Other mixed anxiety disorders [...] disorders documented in this encounter Care Teams Humane Agent Relationship Specialty Start Date End Date Provider, MD Janine [address] [place] [phone] PCP - General Pediatrics 09/26/24 10/13/24 documented as of this encounter
--- OUTSIDE RECORDS SUMMARY | 2025-06-08 15:24 | XMS_ITS | Encounter Summary ---
Author Organization [facility] Address [address] [place] [address] Phone Care Team Providers Care Dairy Manager Name Role Phone Provider, Janine NICHOLAS Primary Care Provider [phone] Encounter Details Date Type Department Care Team (Late st Contact Info) Description 04/04/2011 Documentation [facility] [place] Family Medicine [address] [place] [address] Family Medicine, Physician [address] [place], [place] [phone] Social History Tobacco Use Types Packs/Day Years [...] on filedocumented in this encounter Care Teams Dairy Manager Relationship Specialty Start Date End Date Provider, MD Janine [address] [place] [address] PCP - General Pediatrics 09/26/24 10/13/24 documented as of this encounter
--- OUTSIDE RECORDS SUMMARY | 2025-06-08 15:24 | XMS_ITS | Encounter Summary ---
Author Organization [facility] Address [address] [place] [address] Phone Care Team Providers Care Volleyball Coach Name Role Phone Provider, Janine NICHOLAS Primary Care Provider [phone] Encounter Details Date Type Department Care Team (Late st Contact Info) Description 04/04/2011 [place]ation [facility] [place] [address] [place] [address] Family Medicine, Physician [address] [place] [phone] Social History Tobacco Use Types Packs/Day Years [...] on filedocumented in this encounter Care Teams Volleyball Coach Relationship Specialty Start Date End Date Provider, MD Janine [address] [place] [address] PCP - General Pediatrics 09/26/24 10/13/24 documented as of this encounter
--- OUTSIDE RECORDS SUMMARY | 2025-06-08 15:24 | XMS_ITS | Encounter Summary ---
Author Organization [facility] Address [address] [place] [address] Phone Care Team Providers Care Rn Radiation Name Role Phone Provider, Janine NICHOLAS Primary Care Provider [phone] Encounter Details Date Type Department Care Team (Late st Contact Info) Description 01/19/2010 Documentation [facility] [place] Family Medicine [address] [place] [address] Family Medicine, Physician [address], [place] [phone] Social History Tobacco Use Types Packs/Day Years [...] on filedocumented in this encounter Care Teams Rn Radiation Relationship Specialty Start Date End Date Provider, MD Janine [address] [place] [address] PCP - General Pediatrics 09/26/24 10/13/24 documented as of this encounter
--- OUTSIDE RECORDS SUMMARY | 2025-06-08 15:24 | XMS_ITS | Encounter Summary ---
Author Organization [facility] Address [address] [place] [address] Phone Care Team Providers Care Miniature Model Maker Name Role Phone Provider, Janine NICHOLAS Primary Care Provider [phone] Reason for Visit * Reason Comments Med Refill Encounter Details Date Type Department Care Team ([facility] Contact Info) Description 02/25/2022 Refill [facility] [address] [place] [address] Niles Gray MD Fatigue, unspecified type; Iron [...] she should be getting vitamins from her supervisor nuclear medicine. Is she ? Or was he just giving them as a precaution? Could you check with her? And if she's , can you have her call her supervisor nuclear medicine? * Telephone Encounter - Myla Wright MA - 02/27/2022 9:55 AM EDT Pharm refill for pre janice vitamins. Message to covering provider. DG out. documented in this encounter Plan of Treatment Not on file documented as of this encounter Visit Diagnoses Diagnosis Fatigue, unspecified type Iron deficiency Disorders of iron metabolism documented in this encounter Care Teams Miniature Model Maker Relationship Specialty Start Date End Date Provider, MD Janine [address] [place] [address] PCP - General Pediatrics 09/26/24 10/13/24 documented as of this encounter
--- OUTSIDE RECORDS SUMMARY | 2025-06-08 15:24 | XMS_ITS | Encounter Summary ---
Author Organization [facility] Address [address] [place] [address] Phone Care Team Providers Care Laborer Demolition Name Role Phone Provider, Janine NICHOLAS Primary Care Provider [phone] Encounter Details Date Type Department Care Team (Late st Contact Info) Description 08/10/2015 Documentation [facility] [place] [address] [place] [address] Family Medicine, Physician [address] [place] [phone] Social History Tobacco Use Types Packs/Day Years [...] on filedocumented in this encounter Care Teams Laborer Demolition Relationship Specialty Start Date End Date Provider, MD Janine [address] [place] [address] PCP - General Pediatrics 09/26/24 10/13/24 documented as of this encounter
--- OUTSIDE RECORDS SUMMARY | 2025-06-08 15:24 | XMS_ITS | Encounter Summary ---
Author Organization [facility] Address [address] [place] [address] Phone Care Team Providers Care Manager Pricing Name Role Phone Provider, Janine NICHOLAS Primary Care Provider [phone] Encounter Details Date Type Department Care Team (Late st Contact Info) Description 07/18/2011 Documentation [facility] [place] [address] [place] [address] Family Medicine, Physician [address] [place], [place] [phone] Social History Tobacco Use Types Packs/Day Years [...] filedocumented in this encounter Care Teams Manager Pricing Relationship Specialty Start Date End Date Provider, MD Janine [address] [place] [address] PCP - General Pediatrics 09/26/24 10/13/24 documented as of this encounter
--- OUTSIDE RECORDS SUMMARY | 2025-06-08 15:24 | XMS_ITS | Encounter Summary ---
Author Organization [facility] Address [address] [place] [address] Phone Care Team Providers Care Outsole Cementer Machine Name Role Phone Provider, Janine NICHOLAS Primary Care Provider Encounter Details Date Type Department Care Team ([facility] st Contact Info) Description 05/23/2017 Conversion Encounter [facility] [address] [address] Social History Tobacco Use Types Packs/Day Years [...] on filedocumented in this encounter Care Teams Outsole Cementer Machine Relationship Specialty Start Date End Date Provider, MD Janine [address] [place] [address] PCP - General Pediatrics 09/26/24 10/13/24 documented as of this encounter
--- OUTSIDE RECORDS SUMMARY | 2025-06-08 15:24 | XMS_ITS | Encounter Summary ---
Author Organization [facility] Address [address] [place] [address] Phone Care Team Providers Care Repair Armature Winder Helper Name Role Phone Provider, Janine NICHOLAS Primary Care Provider [phone] Encounter Details Date Type Department Care Team (Late st Contact Info) Description 08/10/2015 Documentation [facility] [place] [address] [place] [address] Family Medicine, Physician [address] [place], [place] [phone] Social History Tobacco Use Types Packs/Day Years [...] on filedocumented in this encounter Care Teams Repair Armature Winder Helper Relationship Specialty Start Date End Date Provider, MD Janine [address] [place] [address] PCP - General Pediatrics 09/26/24 10/13/24 documented as of this encounter
--- OUTSIDE RECORDS SUMMARY | 2025-06-08 15:25 | XMS_ITS | Encounter Summary ---
Author Organization [facility] Address [address] [place] [address] Phone Care Team Providers Care Production Machine Operator Name Role Phone Provider, Janine NICHOLAS Primary Care Provider Encounter Details Date Type Department Care Team (Late st Contact Info) Description 04/23/2012 Documentation [facility] [place] [address] [place] [address] Family Medicine, Physician [address] [place], [place] [phone] Social History Tobacco Use Types Packs/Day Years [...] on filedocumented in this encounter Care Teams Production Machine Operator Relationship Specialty Start Date End Date Provider, MD Janine [address] [place] [address] PCP - General Pediatrics 09/26/24 10/13/24 documented as of this encounter
--- OUTSIDE RECORDS SUMMARY | 2025-06-08 15:25 | XMS_ITS | Encounter Summary ---
Author Organization [facility] Address [address] [place] [address] Phone Care Team Providers Care Cart Attendant Name Role Phone Provider, Janine NICHOLAS Primary Care Provider Encounter Details Date Type Department Care Team (Late st Contact Info) Description 08/23/2016 Documentation [facility] [place] [address] [place] [address] Family Medicine, Physician [address] [place], [place] [phone] Social History Tobacco Use Types Packs/Day Years [...] on filedocumented in this encounter Care Teams Cart Attendant Relationship Specialty Start Date End Date Provider, MD Janine [address] [place] [address] PCP - General Pediatrics 09/26/24 10/13/24 documented as of this encounter
--- OUTSIDE RECORDS SUMMARY | 2025-06-08 15:25 | XMS_ITS | Encounter Summary ---
Author Organization [facility] Address [address] [place] [address] Phone Care Team Providers Care Precision Crop Manager Name Role Phone Provider, Janine NICHOLAS Primary Care Provider [phone] Encounter Details Date Type Department Care Team (Late st Contact Info) Description 08/05/2013 Documentation [facility] [place] [address] [place] [address] Family Medicine, Physician [address], [place] [phone] Social History Tobacco Use Types Packs/Day Years [...] on filedocumented in this encounter Care Teams Precision Crop Manager Relationship Specialty Start Date End Date Provider, MD Janine [address] [place] [address] PCP - General Pediatrics 09/26/24 10/13/24 documented as of this encounter
--- OUTSIDE RECORDS SUMMARY | 2025-06-08 15:25 | XMS_ITS | Encounter Summary ---
Author Organization [facility] Address [address] [place] [address] Phone Care Team Providers Care Acid Cleaner Name Role Phone Provider, Janine NICHOLAS Primary Care Provider Encounter Details Date Type Department Care Team (Late st Contact Info) Description 08/05/2013 Documentation [facility] [place] [address] [place] [address] Family Medicine, Physician [address] [place], [place] [phone] Social History Tobacco Use Types Packs/Day Years [...] on filedocumented in this encounter Care Teams Acid Cleaner Relationship Specialty Start Date End Date Provider, MD Janine [address] [place] [address] PCP - General Pediatrics 09/26/24 10/13/24 documented as of this encounter
== END 2025-06-08 14:11 | disposition home or self-care (01) ==
LOC: HO.LAB 14:10
PROVIDERS: PCP Physician Assistant; Visit Provider Physician Assistant
DX: Z13.89 Encounter for screening for other disorder (principal)

== ENCOUNTER 2025-06-09 10:47 | Outpatient (REF) | payer BC, SELFPAY ==
[2025-06-09 11:01] LABS: MANUAL DIFF FLAG NO
[2025-06-09 11:54] LABS: Hematocrit 42.2 % (37.0-47.0); Hemoglobin 14.0 g/dl (12.0-16.0); Imm Gran Abs Auto 0.01 X10*3/uL (0.00-0.03); Imm Gran Pct Auto 0.2 % (0.0-0.4); Lymphocytes Absolute Auto 1.7 X10*3/uL (1.2-4.9); Mean Corpuscular HGB Conc 33.2 g/dl (31.0-35.0); Mean Corpuscular Hemoglobin 26.5 pg (27.0-33.0); Mean Corpuscular Volume 79.8 fL (80.0-98.0); NRBC Abs Auto 0.000 X10*3/uL (0.0-0.012); NRBC Pct Auto 0.0 /100WBC (0.0-0.2); Platelet Count 212 X10*3/uL (160-400); Red Blood Count 5.29 X10*6/uL (4.20-5.50); White Blood Count 4.6 X10*3/uL (4.8-10.8)
--- OUTSIDE RECORDS SUMMARY | 2025-06-09 12:34 | XMS_ITS | Clinical Summary ---
Author Organization [facility] Address [address] [place] [address] Phone Care Team Providers Care Instrument Repair Technician Name Role Phone Unavailable Primary Care Provider [...] save says ate less with anxiety/panic in [place]. Probably true but should rule out hypo/hyper [...] friends, no panic attacks since trip to [place] in the summer. 11/30: continues to do [...] time. General Guidelines: www.healthychildren.org Nature and Gardening: Https://VoiceGem.org/ResourceType/infosheet/, Https://ipadio.Chrome River Technologies; www.childrenandnature.org Www.natureplayqld.org.au (in [place], still good for here) Https://LK FREEMAN.org/ Academic and creative: www.Akimbo Financial.org; www.blog.Cardiac Concepts.org Tips for online learning: www.Incentive Drawing: On YouTube: Lunch Doodle with TapInko, and Draw everyday with FinesseUQ Communications, also www.Storehouse Physical Activity [place] DailyBooth -Like them for workouts Www.StudentFunder Reaching out: www.Smarter Grid SolutionspeaceMint Labsl.org Music: WRSI Quaranthemes with Bryant Joshua 6-9am, [...] (04/12/2023): Had panic attacks on trip to [place], see history, when had stress of mom's [...] Thyroid disease, No family history of *Sudden /[place] under 55, No family history of Migraines, [...] 11/22/2021 Procedures * Due to [place] NETpeas law, this organization might not be sharing sensitive test results. Procedure Name Priority Date/Time Associated Diagnosis Comments CHLAMYDIA AND GONORRHEA, AMPLIFIED Routine 04/15/2024 2:46 PM EDT Encounter for screening examination for chlamydial infection from Last 3 Months or Most Recently Relevant to Health Maintenance Results * Due to [place] NETpeas law, this organization might not be sharing sensitive test results. * Chlamydia and Gonorrhoea, Amplified (Urine) (04/15/2024 2:46 PM EDT) C trach TYRELL Negative Negative [facility] N gonorrhoeae TYRELL Negative Negative [facility] Urine (Urine, Random (not clean void)) 04/15/2024 2:46 PM EDT 04/15/2024 Comment:UR Narrative [facility] - 04/16/2024 4:08 PM EDT Performed at: 01 - [facility] [place] [address], [address], [place], [place] [id number] Slat Basket Maker Helper Machine: Lveon Aguilar MD, Phone: [phone] us Niles Gray MD LAB MICROBIOLOGY - GENERAL OR DERABLES Final Result [facility] [address] [place] [address] from Last 3 Months or Most Recently Relevant to Health Maintenance
--- OUTSIDE RECORDS SUMMARY | 2025-06-09 12:34 | XMS_ITS | Encounter Summary ---
Author Organization [facility] Address [address] [place] [address] Phone Care Team Providers Care Outbound Sales Professional Name Role Phone Provider, Janine NICHOLAS Primary Care Provider [phone] Encounter Details Date Type Department Care Team (Late st Contact Info) Description 08/23/2016 Documentation [facility] [place] [address] [place] [address] Family Medicine, Physician [address], [place] [phone] Social History Tobacco Use Types Packs/Day Years [...] on filedocumented in this encounter Care Teams Outbound Sales Professional Relationship Specialty Start Date End Date Provider, MD Janine [address] [place] [address] PCP - General Pediatrics 09/26/24 10/13/24 documented as of this encounter
--- OUTSIDE RECORDS SUMMARY | 2025-06-09 12:34 | XMS_ITS | Encounter Summary ---
Author Organization [facility] Address [address] [place] [address] Phone Care Team Providers Care Plant Security Guard Name Role Phone Provider, Janine NICHOLAS Primary Care Provider [phone] Reason for Visit * Reason Comments Med Refill Encounter Details Date Type Department Care Team ([facility] st Contact Info) Description 09/23/2021 Refill [facility] [address] [place] [address] Niles Gray MD Other mixed anxiety disorders [...] disorders documented in this encounter Care Teams Plant Security Guard Relationship Specialty Start Date End Date Provider, MD Janine [address] [place] [id number] PCP - General Pediatrics 09/26/24 10/13/24 documented as of this encounter
--- OUTSIDE RECORDS SUMMARY | 2025-06-09 12:34 | XMS_ITS | Encounter Summary ---
Author Organization [facility] Address [address] [place] [address] Phone Care Team Providers Care Car Ferrier Name Role Phone Provider, Janine NICHOLAS Primary Care Provider [phone] Encounter Details Date Type Department Care Team (Late st Contact Info) Description 08/05/2013 Documentation [facility] [place] [address] [place] [address] Family Medicine, Physician [address] [place], [place] [phone] Social History Tobacco Use Types Packs/Day Years [...] on filedocumented in this encounter Care Teams Car Ferrier Relationship Specialty Start Date End Date Provider, MD Janine [address] [place] [address] PCP - General Pediatrics 09/26/24 10/13/24 documented as of this encounter
--- OUTSIDE RECORDS SUMMARY | 2025-06-09 12:34 | XMS_ITS | Encounter Summary ---
Author Organization [facility] Address [address] [place] [address] Phone Care Team Providers Care Press Department Manager Name Role Phone Provider, Janine NICHOLAS Primary Care Provider [phone] Encounter Details Date Type Department Care Team (Late st Contact Info) Description 08/10/2015 Documentation [facility] [place] Family Medicine [address] [place] [address] Family Medicine, Physician [address] [place], [place] [phone] Social History Tobacco Use Types Packs/Day Years [...] on filedocumented in this encounter Care Teams Press Department Manager Relationship Specialty Start Date End Date Provider, MD Janine [address] [place] [address] PCP - General Pediatrics 09/26/24 10/13/24 documented as of this encounter
--- OUTSIDE RECORDS SUMMARY | 2025-06-09 12:34 | XMS_ITS | Encounter Summary ---
Author Organization [facility] Address [address] [place] [address] Phone Care Team Providers Care Chief Projectionist Name Role Phone Provider, Janine NICHOLAS Primary Care Provider [phone] Encounter Details Date Type Department Care Team (Late st Contact Info) Description 08/10/2015 Documentation [facility] [place] [address] [place] [address] Family Medicine, Physician [address] [place], [place] [phone] Social History Tobacco Use Types Packs/Day Years [...] filedocumented in this encounter Care Teams Chief Projectionist Relationship Specialty Start Date End Date Provider, MD Janine [address] [place] [address] PCP - General Pediatrics 09/26/24 10/13/24 documented as of this encounter
--- OUTSIDE RECORDS SUMMARY | 2025-06-09 12:34 | XMS_ITS | Encounter Summary ---
Author Organization [facility] Address [address] [place] [address] Phone Care Team Providers Care Salvage Grinder Name Role Phone Provider, Janine NICHOLAS Primary Care Provider Encounter Details Date Type Department Care Team (Late st Contact Info) Description 04/04/[address] [facility] [place] [address] [place] [address] Family Medicine, Physician [address] [place] [phone] Social History Tobacco Use Types Packs/Day Years [...] on filedocumented in this encounter Care Teams Salvage Grinder Relationship Specialty Start Date End Date Provider, MD Janine [address] [place] [address] PCP - General Pediatrics 09/26/24 10/13/24 documented as of this encounter
--- OUTSIDE RECORDS SUMMARY | 2025-06-09 12:34 | XMS_ITS | Encounter Summary ---
Author Organization [facility] Address [address] [place] [address] Phone Care Team Providers Care Senior Core Java Developer Name Role Phone Provider, Janine NICHOLAS Primary Care Provider [phone] Encounter Details Date Type Department Care Team (Late st Contact Info) Description 08/23/2016 Documentation [facility] [place] [address] [place] [address] Family Medicine, Physician [address] [place], [place] [phone] Social History Tobacco Use Types Packs/Day Years [...] filedocumented in this encounter Care Teams Senior Core Java Developer Relationship Specialty Start Date End Date Provider, MD Janine [address] [place] [address] PCP - General Pediatrics 09/26/24 10/13/24 documented as of this encounter
--- OUTSIDE RECORDS SUMMARY | 2025-06-09 12:34 | XMS_ITS | Encounter Summary ---
Author Organization [facility] Address [address] [place] [address] Phone Care Team Providers Care Medical Dermatologist Name Role Phone Provider, Janine NICHOLAS Primary Care Provider [phone] Encounter Details Date Type Department Care Team (Late st Contact Info) Description 04/23/2012 Documentation [facility] [place] Family Medicine [address] [place] [address] Family Medicine, Physician [address] [place], [place] [phone] Social History Tobacco Use Types Packs/Day Years [...] on filedocumented in this encounter Care Teams Medical Dermatologist Relationship Specialty Start Date End Date Provider, MD Janine [address] [place] [address] PCP - General Pediatrics 09/26/24 10/13/24 documented as of this encounter
--- OUTSIDE RECORDS SUMMARY | 2025-06-09 12:34 | XMS_ITS | Encounter Summary ---
Author Organization [facility] Address [address] [place] [address] Phone Care Team Providers Care Health Service Coordinator Name Role Phone Provider, Janine NICHOLAS Primary Care Provider [phone] Reason for Visit * Reason Comments Med Refill Encounter Details Date Type Department Care Team ([facility] st Contact Info) Description 08/24/2019 [place]ill [facility] [place] [address] [place] [address] Niles Rosales MD [address] [place] [address] Other mixed anxiety disorders Social History Tobacco [...] Nino LPN - 08/24/2019 9:23 AM EST [facility] PCP BLL: pharm fax refill request sertaline. Pt has PE for 09/01. EH documented in this encounter Plan of Treatment Not on file documented as of this encounter Visit Diagnoses Diagnosis Other mixed anxiety disorders documented in this encounter Care Teams Health Service Coordinator Relationship Specialty Start Date End Date Provider, MD Janine [address] [place] [address] PCP - General Pediatrics 09/26/24 10/13/24 documented as of this encounter
--- OUTSIDE RECORDS SUMMARY | 2025-06-09 12:34 | XMS_ITS | Encounter Summary ---
Author Organization [facility] Address [address] [place] [address] Phone Care Team Providers Care Histology Assistant Name Role Phone Provider, Janine NICHOLAS Primary Care Provider [phone] Encounter Details Date Type Department Care Team (Late st Contact Info) Description 04/29/2017 [place]ation [facility] [place] [address] [place] [address] Family Medicine, Physician [address] [place], [place] [phone] Social History Tobacco Use Types Packs/Day Years [...] on filedocumented in this encounter Care Teams Histology Assistant Relationship Specialty Start Date End Date Provider, MD Janine [address] [place] [address] PCP - General Pediatrics 09/26/24 10/13/24 documented as of this encounter
--- OUTSIDE RECORDS SUMMARY | 2025-06-09 12:34 | XMS_ITS | Encounter Summary ---
Author Organization [facility] Address [address] [place] [address] Phone Care Team Providers Care Wave Solder Offbearer Name Role Phone Provider, Janine NICHOLAS Primary Care Provider [phone] Encounter Details Date Type Department Care Team (Late st Contact Info) Description 04/04/2011 Documentation [facility] [place] [address] [place] [address] Family Medicine, Physician [address] [place], [place] [phone] Social History Tobacco Use Types Packs/Day Years [...] on filedocumented in this encounter Care Teams Wave Solder Offbearer Relationship Specialty Start Date End Date Provider, MD Janine [address] [place] [address] PCP - General Pediatrics 09/26/24 10/13/24 documented as of this encounter
--- OUTSIDE RECORDS SUMMARY | 2025-06-09 12:34 | XMS_ITS | Encounter Summary ---
Author Organization [facility] Address [address] [place] [address] Phone Care Team Providers Care Cannery Tender Engineer Name Role Phone Provider, Janine NICHOLAS Primary Care Provider [phone] Encounter Details Date Type Department Care Team (Late st Contact Info) Description 01/06/2010 [place] [facility] [place] [address] [place] [address] Family Medicine, Physician [address] [place], [place] [phone] Social History Tobacco Use Types Packs/Day Years [...] on filedocumented in this encounter Care Teams Cannery Tender Engineer Relationship Specialty Start Date End Date Provider, MD Janine [address] [place] [address] PCP - General Pediatrics 09/26/24 10/13/24 documented as of this encounter
--- OUTSIDE RECORDS SUMMARY | 2025-06-09 12:34 | XMS_ITS | Encounter Summary ---
Author Organization [facility] Address [address] [place] [address] Phone Care Team Providers Care Buggy Ladle Tender Name Role Phone Provider, Janine NICHOLAS Primary Care Provider [phone] Encounter Details Date Type Department Care Team (Late st Contact Info) Description 08/23/2016 Documentation [facility] [place] [address] [place] [address] Family Medicine, Physician [address] [place], [place] [phone] Social History Tobacco Use Types Packs/Day Years [...] on filedocumented in this encounter Care Teams Buggy Ladle Tender Relationship Specialty Start Date End Date Provider, MD Janine [address] [place] [address] PCP - General Pediatrics 09/26/24 10/13/24 documented as of this encounter
--- OUTSIDE RECORDS SUMMARY | 2025-06-09 12:34 | XMS_ITS | Encounter Summary ---
Author Organization [facility] Address [address] [place] [address] Phone Care Team Providers Care Knockup Worker Name Role Phone Provider, Janine NICHOLAS Primary Care Provider [phone] Reason for Visit * Reason Comments Med Refill Encounter Details Date Type Department Care Team ([facility] st Contact Info) Description 06/23/2019 Refill [facility] - [address] [address] Niles Gray MD Other mixed anxiety disorders [...] disorders documented in this encounter Care Teams Knockup Worker Relationship Specialty Start Date End Date Provider, MD Janine [address] [place] [address] PCP - General Pediatrics 09/26/24 10/13/24 documented as of this encounter
--- OUTSIDE RECORDS SUMMARY | 2025-06-09 12:34 | XMS_ITS | Encounter Summary ---
Author Organization [facility] Address [address] [place] [address] Phone Care Team Providers Care Tree Chipper Name Role Phone Provider, Janine NICHOLAS Primary Care Provider [phone] Encounter Details Date Type Department Care Team (Late st Contact Info) Description 07/18/2011 Documentation [facility] [place] [address] [place] [address] Family Medicine, Physician [address] [place], [place] [phone] Social History Tobacco Use Types Packs/Day Years [...] on filedocumented in this encounter Care Teams Tree Chipper Relationship Specialty Start Date End Date Provider, MD Janine [address] [place] [address] PCP - General Pediatrics 09/26/24 10/13/24 documented as of this encounter
--- OUTSIDE RECORDS SUMMARY | 2025-06-09 12:34 | XMS_ITS | Encounter Summary ---
Author Organization [facility] Address [address] [place] [address] Phone Care Team Providers Care Repairer Welding Equipment Name Role Phone Provider, Janine NICHOLAS Primary Care Provider [phone] Encounter Details Date Type Department Care Team (Late st Contact Info) Description 01/19/2010 Documentation [facility] [place] [address] [place] [address] Family Medicine, Physician [address] [place], [place] [phone] Social History Tobacco Use Types Packs/Day Years [...] on filedocumented in this encounter Care Teams Repairer Welding Equipment Relationship Specialty Start Date End Date Provider, MD Janine [address] [place] [address] PCP - General Pediatrics 09/26/24 10/13/24 documented as of this encounter
--- OUTSIDE RECORDS SUMMARY | 2025-06-09 12:34 | XMS_ITS | Encounter Summary ---
Author Organization [facility] Address [address] [place] [address] Phone Care Team Providers Care Cement Mixer Name Role Phone Provider, Janine NICHOLAS Primary Care Provider [phone] Reason for Visit * Reason Comments Med Refill Encounter Details Date Type Department Care Team ([facility] Contact Info) Description 02/25/2022 Refill [facility] [address] [place] [address] Niles Gray MD Fatigue, unspecified type; Iron [...] she should be getting vitamins from her ware dresser. Is she ? Or was he just giving them as a precaution? Could you check with her? And if she's , can you have her call her ware dresser? * Telephone Encounter - Myla Wright MA - 02/27/2022 9:55 AM EDT Pharm refill for pre janice vitamins. Message to covering provider. DG out. documented in this encounter Plan of Treatment Not on file documented as of this encounter Visit Diagnoses Diagnosis Fatigue, unspecified type Iron deficiency Disorders of iron metabolism documented in this encounter Care Teams Cement Mixer Relationship Specialty Start Date End Date Provider, MD Janine [address] [place] [address] PCP - General Pediatrics 09/26/24 10/13/24 documented as of this encounter
--- OUTSIDE RECORDS SUMMARY | 2025-06-09 12:34 | XMS_ITS | Encounter Summary ---
Author Organization [facility] Address [address] [place] [address] Phone Care Team Providers Care Reel Stripper Name Role Phone Provider, Janine NICHOLAS Primary Care Provider [phone] Encounter Details Date Type Department Care Team (Late st Contact Info) Description 07/18/2011 Documentation [facility] [place] [address] [place] [address] Family Medicine, Physician [address] [place], [place] [phone] Social History Tobacco Use Types Packs/Day Years [...] on filedocumented in this encounter Care Teams Reel Stripper Relationship Specialty Start Date End Date Provider, MD Janine [address] [place] [address] PCP - General Pediatrics 09/26/24 10/13/24 documented as of this encounter
--- OUTSIDE RECORDS SUMMARY | 2025-06-09 12:34 | XMS_ITS | Encounter Summary ---
Author Organization [facility] Address [address] [place] [address] Phone Care Team Providers Care Drier Helper Name Role Phone Provider, Janine NICHOLAS Primary Care Provider [phone] Encounter Details Date Type Department Care Team (Late st Contact Info) Description 04/23/2012 Documentation [facility] [place] [address] [place] [address] Family Medicine, Physician [address] [place], [place] [phone] Social History Tobacco Use Types Packs/Day Years [...] on filedocumented in this encounter Care Teams Drier Helper Relationship Specialty Start Date End Date Provider, MD Janine [address] [place] [address] PCP - General Pediatrics 09/26/24 10/13/24 documented as of this encounter
--- OUTSIDE RECORDS SUMMARY | 2025-06-09 12:34 | XMS_ITS | Encounter Summary ---
Author Organization [facility] Address [address] [place] [address] Phone Care Team Providers Care Hospitality Internship Name Role Phone Provider, Janine NICHOLAS Primary Care Provider [phone] Encounter Details Date Type Department Care Team (Late st Contact Info) Description 08/05/2013 Documentation [facility] Family Medicine [address] [place] [address] Family Medicine, Physician [address] [place], [place] [phone] Social History Tobacco Use Types Packs/Day Years [...] on filedocumented in this encounter Care Teams Hospitality Internship Relationship Specialty Start Date End Date Provider, MD Janine [address] [place] [address] PCP - General Pediatrics 09/26/24 10/13/24 documented as of this encounter
--- OUTSIDE RECORDS SUMMARY | 2025-06-09 12:34 | XMS_ITS | Encounter Summary ---
Author Organization [facility] Address [address] [place] [address] Phone Care Team Providers Care Laborer Fryer Farm Name Role Phone Provider, Janine NICHOLAS Primary Care Provider [phone] Encounter Details Date Type Department Care Team ([facility] st Contact Info) Description 05/23/2017 Conversion Encounter [facility] [address] [address] Social History Tobacco Use Types Packs/Day Years [...] filedocumented in this encounter Care Teams Laborer Fryer Farm Relationship Specialty Start Date End Date Provider, MD Janine [address] [place] [address] PCP - General Pediatrics 09/26/24 10/13/24 documented as of this encounter
--- OUTSIDE RECORDS SUMMARY | 2025-06-09 12:34 | XMS_ITS | Encounter Summary ---
Author Organization [facility] Address [address] [place] [address] Phone Care Team Providers Care Assistant Film Editor Name Role Phone Provider, Janine NICHOLAS Primary Care Provider [phone] Encounter Details Date Type Department Care Team (Late st Contact Info) Description 04/04/2011 Documentation [facility] [place] [address] [place] [address] Family Medicine, Physician [address] [place], [place] [phone] Social History Tobacco Use Types Packs/Day Years [...] on filedocumented in this encounter Care Teams Assistant Film Editor Relationship Specialty Start Date End Date Provider, MD Janine [address] [place] [address] PCP - General Pediatrics 09/26/24 10/13/24 documented as of this encounter
[2025-06-09 12:43] LABS: Alanine Aminotransferase 15 U/L (0-31); Albumin Level 5.1 g/dL (3.5-5.0); Alkaline Phosphatase 61 U/L (39-117); Anion Gap 11 (12-20); Aspartate Amino Transferase 21 U/L (5-31); Blood Urea Nitrogen 8 mg/dL (9-16); Calcium 9.4 mg/dL (8.4-10.2); Carbon Dioxide 23 mmol/L (22-29); Chloride 109 mmol/L (96-108); Cholesterol 156 mg/dL (<200); Estimated Glomerular Filt Rate > 60; HDL Cholesterol 56 mg/dL (>40); Iron 125 mcg/dL (30-160); Percent Iron Saturation 38 % (15-50); Potassium 3.4 mmol/L (3.3-5.1); Sodium 140 mmol/L (135-145); Total Iron Binding Capacity 332 mcg/dL (228-428); Total Protein 7.9 g/dL (6.5-8.0); Triglycerides 49 mg/dL (<150); Unsaturated Iron Binding 207 ug/dL
[2025-06-09 12:53] LABS: Syphilis Screen Nonreactive (Nonreactive)
[2025-06-09 13:06] LABS: HBsAGNum1 0.37 S/CO (0.00-0.99); HIV Num 1 0.07 S/CO (0.00-0.99); Hepatitis B Surface Antigen Negative (Negative); ~HepC Num1 0.11 S/CO (0.00-0.79); ~Hepatitis C Antibody Nonreactive (Nonreactive)
[2025-06-09 13:08] LABS: Folate 11.5 ng/mL (> or = 4.0); Vitamin B12 286 pg/mL (200-900)
== END 2025-06-09 10:48 | disposition home or self-care (01) ==
LOC: HO.LAB 10:47
PROVIDERS: Advanced Practice Midwife; PCP Physician Assistant; Visit Provider Physician Assistant
DX: Z00.00 Encounter for general adult medical examination without abnormal findings (principal); Z13.220 Encounter for screening for lipoid disorders; R19.7 Diarrhea, unspecified; R10.9 Unspecified abdominal pain; E53.8 Deficiency of other specified B group vitamins; D50.9 Iron deficiency anemia, unspecified; F41.1 Generalized anxiety disorder
CPT/HCPCS: 36415; 80053; 80061; 82607; 82746; 83540; 84443; 85025; 86780; 86803; 87340; 87389

== ENCOUNTER 2025-06-09 15:27 | Outpatient (AMB) | payer BC, SELFPAY ==
--- NOTE | 2025-06-09 15:36 | A.OFFPC_ITS ---
Vital Signs 06/09/25 15:37 Height 5 ft 6 in Weight 117 lb 2 oz BMI 18.9 BP 92/48 L Blood Pressure Location Lt brachial Position Sitting Respiration 12 Pulse 101 H Pulse Source Pulse Oximeter Temp 98.8 F Temp Source Oral Pulse Oximetry (%) 98 Oxygen Delivery Method Room Air Intake Visit Reasons: physical Intake Note: Physical Spooling Machine Operator Required: No Allergies No Known Allergies Allergy (Verified 06/09/25 15:37) Medication List - Last Reconciled 06/09/25 by Dinah Richmond PA-C medroxyprogesterone (Depo-Provera) 150 mg IM Q12W sertraline 25 mg PO DAILY Tobacco use date assessed: 12/24/24 Dental Screening Dental Screen Date: 12/24/24 HPI physical HPI Details Patient is a 19-year-old female who presents today for a physical exam. Psych: she is currently on sertaline 25 mg and doing well. GI: has been getting abdominal pain and cramping with diarrhea. She states that it will happen randomly this has been going on for a couple years. It has recently gotten significantly worse where the diarrhea in the urge to have a bowel movement is urgent. She says she has always been able to have some more control over her upset stomach but not anymore. She does not know if it is a specific food as it does not happen directly after eating. She has not tried making any diet changes. There is no vomiting or nausea. The pain is intense and does sometimes make her feel lightheaded. 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 specialist, started depo and feels like it is causing her to feel nicolas Fam hx: paternal grandfather had colon ca at age 70 [facility] Surgical History No pertinent past surgical history Family History Maternal Grandmother Anxiety Paternal Uncle Schizoaffective disorder Father Colon cancer Other FH: mental illness Social History (Updated 06/09/25 @ 15:40 by Minna Yi CMA) Housing: House Alcohol intake: current Patient Tobacco Use Status: Never used Tobacco e-Cigarette/Vaping Use: Never Used Second Hand Smoke Exposure: No service: No Current occupational status: employed Current occupation: [employer] Current occupational exposures/hazards: No Cognitive needs: No Hearing needs: No Vision needs: No Female Reproductive History Menstrual Age of Menarche: 12 Questionnaire Thrive Questionnaire Date Thrive assessed: 12/18/24 I am a: Patient What is your living situation today?: I have a steady place to live Within the past 12 months, did the food you bought not last and you didn't have the money to get more?: Never true Within the past 12 months, did you worry whether your food would run out before you got money to buy more?: Never true Do you have trouble paying for medicines?: No Do you have trouble getting transportation to medical appointments?: No Do you have trouble paying your heating and electricity bill?: No Do you have trouble taking care of your child, family member or friend?: No Do you have trouble with day-to-day activities such as bathing, preparing meals, shopping, managing finances, etc.?: No Are you currently unemployed and looking for a job?: No Are you interested in more education?: No Please select the resources that you would like help with: None Currently or been in a relationship where the following occur: No concerns reported THRIVE Score: 0 AUDIT C Alcohol Use Questionnaire (AUDIT-C) 1. How often do you have a drink containing alcohol?: Monthly or less 2. How many drinks containing alcohol do you have on a typical day when you are drinking?: 1 or 2 3. How often do you have six or more drinks on one occasion?: Never Total Score: 1 STEVEN-7 AMB Questionnaire STEVEN-7 Date STEVEN - 7 assessed: 12/24/24 Source: Developed by Drs. Paolo Graff, Alicja Ochoa, Milad Chamorro and colleagues, with an educational blayne from [employer]. Physical exam (Primary Care) Vital Signs: Last Vital Signs Temp 98.8 F 06/09/25 15:37 Pulse 101 H 06/09/25 15:37 Resp 12 06/09/25 15:37 BP 92/48 L 06/09/25 15:37 Pulse Ox 98 06/09/25 15:37 Oxygen Delivery Method Room Air 06/09/25 15:37 BMI result Body Mass Index 18.9 Tobacco/Smoking Status: Tobacco use Status Tobacco use date assessed 12/24/24 06/09/25 15:40 Patient Tobacco Use Status Never used Tobacco 06/09/25 15:40 e-Cigarette/Vaping Use Never Used 06/09/25 15:40 Thrive Assessment: Date of Thrive Assessment Date Thrive assessed 12/18/24 06/09/25 15:40 Currently or been in a relationship where the following occur: No concerns reported Const Orientation/consciousness: patient oriented x3 HENMT Ears: hearing grossly normal bilaterally and TM's normal bilaterally General nose exam: No nasal polyps present Face and sinus: Yes sinuses nontender Mouth: Normal oral and palatal mucosa present Eyes Pupils: Equal, round and reactive pupils present EOM: EOMs intact bilaterally Neck Neck: Yes full ROM and Yes no lymphadenopathy Thyroid: Thyroid normal Chest Chest palpation & inspection: normal inspection of the chest Resp Auscultation: clear to auscultation bilaterally Cardio Rate: regular rate Rhythm: regular rhythm Heart sounds: S1 normal heart sound present and S2 normal heart sound present Peripheral pulses: Peripheral pulses 2+ throughout GI Other: Soft, nontender Auscultation: normal bowel sounds Rectal Exam - Female: deferred General: Yes no CVA tenderness Back/Spine/Pelvis Other: Nontender Back: no CVA tenderness Skin General skin exam: no rashes or lesions noted Neuro General: patient oriented x3, gait normal, CN's II-XI intact bilaterally and deep tendon reflexes 2+ bilaterally Cranial nerves: Yes Equal, round and reactive pupils present Motor exam (neuro): 5/5 motor strength present throughout Sensory Exam: double simultaneous stimulation for sensation normal Coordination: [id number] test normal and Romberg test negative Extrem General: Yes normal to inspection and Yes full ROM Psych Affect: normal affect Attitude: cooperative Thought process: Normal thought process present Thought content: Normal thought content present Insight: Good insight present (Psych) Judgement: Good judgement present (Psych) Coding Level of Care Code Est Pt Level 3 (20879) New Pt Prev Care 18-39yr(56319 Diagnoses Routine general medical examination at a health care facility Z00.00 Diarrhea R19.7 Abdominal pain R10.9 B12 deficiency E53.8 Assessment & Plan Assessment & Plan (1) Routine general medical examination at a health care facility: Code(s): Z00.00 - Encounter for general adult medical examination without abnormal findings Plan: Health maintenance reviewed Labs ordered (2) Diarrhea: Code(s): R19.7 - Diarrhea, unspecified Category: Medical Plan: Labs ordered today. Advised to try an elimination diet. (3) Abdominal pain: Code(s): R10.9 - Unspecified abdominal pain Category: Medical Plan: Currently asymptomatic. Abdominal exam is benign. Ultrasound ordered. Referral to GI. (4) B12 deficiency: Code(s): E53.8 - Deficiency of other specified B group vitamins Category: Medical Plan: We will check labs Orders: Orders Transglutaminase Ab IgG 06/09/25 D50.9 - Iron deficiency anemia, unspecified, E53.8 - Deficiency of other specified B group vitamins, R10.9 - Unspecified abdominal pain, R19.7 - Diarrhea, unspecified Calprotectin, Fecal 06/09/25 D50.9 - Iron deficiency anemia, unspecified, E53.8 - Deficiency of other specified B group vitamins, R10.9 - Unspecified abdominal pain, R19.7 - Diarrhea, unspecified OBSX3 06/09/25 D50.9 - Iron deficiency anemia, unspecified, E53.8 - Deficiency of other specified B group vitamins, R10.9 - Unspecified abdominal pain, R19.7 - Diarrhea, unspecified US abdomen complete 06/09/25 D50.9 - Iron deficiency anemia, unspecified, E53.8 - Deficiency of other specified B group vitamins, R10.9 - Unspecified abdominal pain, R19.7 - Diarrhea, unspecified Endomysial IgA rflx Titer 06/09/25 D50.9 - Iron deficiency anemia, unspecified, E53.8 - Deficiency of other specified B group vitamins, R10.9 - Unspecified abdominal pain, R19.7 - Diarrhea, unspecified Immunoglobulin A 06/09/25 D50.9 - Iron deficiency anemia, unspecified, E53.8 - Deficiency of other specified B group vitamins, R10.9 - Unspecified abdominal pain, R19.7 - Diarrhea, unspecified Erythrocyte Sedimentation Rate 06/09/25 D50.9 - Iron deficiency anemia, unspecified, E53.8 - Deficiency of other specified B group vitamins, R10.9 - Unspecified abdominal pain, R19.7 - Diarrhea, unspecified C Reactive Protein 06/09/25 D50.9 - Iron deficiency anemia, unspecified, E53.8 - Deficiency of other specified B group vitamins, R10.9 - Unspecified abdominal pain, R19.7 - Diarrhea, unspecified Referrals Gastroenterology Referral R10.9 - Unspecified abdominal pain, R19.7 - Diarrhea, unspecified Medications: New cyanocobalamin (vitamin B-12) 1,000 mcg PO DAILY 90 caps 0RF
[2025-06-09 15:37] VITALS: BP 92/48; PULSE 101; RESP 12; TEMP 37.1; O2SAT 98; BMI 18.9
== END 2025-06-09 16:02 | disposition home or self-care (01) ==
LOC: HO.HMCFM 15:28
PROVIDERS: PCP Physician Assistant; Visit Provider Physician Assistant
DX: Z00.00 Encounter for general adult medical examination without abnormal findings (principal); R19.7 Diarrhea, unspecified; R10.9 Unspecified abdominal pain; E53.8 Deficiency of other specified B group vitamins

== ENCOUNTER 2025-06-18 12:29 | Outpatient (REF) | payer BC, SELFPAY ==
--- NOTE | ~2025-06-18 | US_ITS ---
EXAMINATION: US ABDOMEN HISTORY: D50.9 - Iron deficiency anemia, unspecified TECHNIQUE: Real-time grayscale ultrasound imaging of the abdomen was performed and images were reviewed. COMPARISON: There are no prior studies available for comparison. FINDINGS: Liver: The right lobe of the liver measures 12.3 cm in size. The left lobe of the liver measures 9.4 cm in size. The liver demonstrates normal homogeneous echotexture. No focal mass or intrahepatic biliary ductal dilatation is identified. There is normal hepatopedal flow in the portal vein. Gallbladder and biliary tree: The gallbladder is unremarkable, without evidence of calculi, wall thickening, or pericholecystic fluid. There is no sonographic Montano sign. The common bile duct is normal in caliber measuring 4 mm. Kidneys: The right kidney measures 10.2 cm in length. The left kidney measures 9.7 cm in length. The kidneys are unremarkable, without evidence of masses, hydronephrosis, or calculi. Pancreas: The pancreatic head, neck, and body are unremarkable. The pancreatic tail is obscured by bowel gas. Spleen: The spleen is normal in size and contour, measuring 10.5 cm in length. Abdominal aorta and inferior vena cava: The visualized portions of the abdominal aorta and inferior vena cava are normal in caliber. There is no free fluid in the abdomen. US/US abdomen complete IMPRESSION: Unremarkable abdominal ultrasound. Electronically signed by: Paolo Austin MD 06/18/2025 01:09 PM EDT
== END 2025-06-18 12:30 | disposition home or self-care (01) ==
LOC: HO.US 12:29
PROVIDERS: PCP Physician Assistant; Visit Provider Physician Assistant
DX: R10.9 Unspecified abdominal pain (principal); R19.7 Diarrhea, unspecified; D50.9 Iron deficiency anemia, unspecified; E53.8 Deficiency of other specified B group vitamins
CPT/HCPCS: 76700

== ENCOUNTER → 2025-06-18 12:30 | Outpatient (BNV) | payer BC, SELFPAY | PROVIDERS: PCP Physician Assistant; Visit Provider Radiology Diagnostic Radiology | DX: R10.9 Unspecified abdominal pain (principal) | CPT/HCPCS: 76700 ==

== ENCOUNTER 2025-07-13 10:11 | Outpatient (AMB) | payer BC, SELFPAY ==
[2025-07-13 10:32] VITALS: BP 94/60; PULSE 91; RESP 15; TEMP 37; O2SAT 100; BMI 19.5
--- NOTE | 2025-07-13 10:32 | MHC.OFFWIV ---
Intake Vital Signs 07/13/25 10:32 Height 5 ft 6 in Weight 121 lb BMI 19.5 BP 94/60 Blood Pressure Location Lt brachial Position Sitting Respiration 15 Pulse 91 Pulse Source Pulse Oximeter Temp 98.6 F Temp Source Oral Pulse Oximetry (%) 100 Oxygen Delivery Method Room Air Intake Visit Reasons: ep swelling on left side of face Intake Note: Pt is here today c/o swelling on Lt side of face due to infected pimple Patient Tobacco Use Status: Never used Tobacco Allergies No Known Allergies Allergy (Verified 07/13/25 10:33) HPI HPI Comments History of Present Illness Details History of Present Illness - The patient is a 20-year-old female presenting with a facial abscess on her left cheek. - The patient reports the onset of a pimple on her face, which she has experienced before, but this time it has caused significant swelling. - The swelling has progressed to involve the area near her eye, causing discomfort and tenderness. - The condition worsened overnight, with increased redness and swelling noted upon waking. - The patient has not attempted to squeeze or cut into the lesion due to its location on the face. - No prior history of similar severe episodes or interventions for facial lesions was mentioned. - Denies chance of Physical Exam General: Cooperative, healthy appearing, comfortable, no acute distress and well developed Orientation: Patient oriented x3 Limitations: No limitations Head: Normal to inspection Ears: Hearing grossly normal bilaterally Nose: Normal External nose present Face and sinus: 1cm round abscess with tenderness and induration with central purulence on left cheek, no warmth or drainage. Eyes: Appearance normal, both eyes and all related structures Neck: Normal visual inspection and Yes full ROM Respiratory: Normal respiratory effort and able to speak in complete sentences. Skin: No rashes or lesions noted Neuro: Patient oriented x3 Extremities: Normal to inspection Review of Systems - Dermatological: Reports swelling and tenderness on the face, extending towards the eye. - General: Denies systemic symptoms such as fever or malaise. All systems reviewed and are unremarkable except as noted in HPI [facility] Surgical History No pertinent past surgical history Family History Maternal Grandmother Anxiety Paternal Uncle Schizoaffective disorder Father Colon cancer Other FH: mental illness Social History (Updated 06/09/25 @ 15:40 by Minna Yi CMA) Housing: House Alcohol intake: current Patient Tobacco Use Status: Never used Tobacco e-Cigarette/Vaping Use: Never Used Second Hand Smoke Exposure: No service: No Current occupational status: employed Current occupation: [employer] Current occupational exposures/hazards: No Cognitive needs: No Hearing needs: No Vision needs: No Female Reproductive History Menstrual Age of Menarche: 12 Physical Exam Vital Signs: Last Vital Signs Temp 98.6 F 07/13/25 10:32 Pulse 91 07/13/25 10:32 Resp 15 07/13/25 10:32 BP 94/60 07/13/25 10:32 Pulse Ox 100 07/13/25 10:32 Oxygen Delivery Method Room Air 07/13/25 10:32 BMI result Body Mass Index 19.5 Assessment & Plan Assessment & Plan (1) Abscess: Code(s): L02.91 - Cutaneous abscess, unspecified Plan: Plan Patient was informed and verbally consented to the use of an ambient scribe for clinic note documentation during this visit. small facial abscess - Prescribed doxycycline 100 mg twice daily for five days to address the infection. - Advised to avoid sun exposure and limit dairy intake during the course of antibiotics. - Instructed on the use of warm compresses to aid in drainage and reduce swelling. Medications: New doxycycline hyclate 100 mg PO BID 10 tabs 0RF Coding Level of Care Code Est Pt Level 3 (73103) Diagnoses Abscess L02.91
--- OUTSIDE RECORDS SUMMARY | 2025-07-13 12:05 | XMS_ITS | Encounter Summary ---
Author Organization [facility] Address [address] [place] [address] Phone Care Team Providers Care Credit Collections Specialist Name Role Phone Provider, Janine NICHOLAS Primary Care Provider [phone] Encounter Details Date Type Department Care Team (Late st Contact Info) Description 04/23/2012 Documentation [facility] [place] Family Medicine [address] [place] [address] Family Medicine, Physician [address], [place] [phone] Social History Tobacco Use Types Packs/Day Years [...] on filedocumented in this encounter Care Teams Credit Collections Specialist Relationship Specialty Start Date End Date Provider, MD Janine [address] [place] [address] PCP - General Pediatrics 09/26/24 10/13/24 documented as of this encounter
--- OUTSIDE RECORDS SUMMARY | 2025-07-13 12:05 | XMS_ITS | Clinical Summary ---
Author Organization [facility] Address [address] [place] [address] Phone Care Team Providers Care Mounter Smoking Pipe Name Role Phone Unavailable Primary Care Provider [...] save says ate less with anxiety/panic in [place]. Probably true but should rule out hypo/hyper [...] friends, no panic attacks since trip to [place] in the summer. 11/30: continues to do [...] your relaxation skills. See a therapist: Yoana Grya: Assessment & Plan (11/22/2021 10:25 AM EST): [...] time. General Guidelines: www.healthychildren.org Nature and Gardening: Https://OxThera.org/ResourceType/infosheet/, Https://Citizen.VC.Price Ignite Systems; www.childrenandnature.org Www.natureplayqld.org.au (in [place], still good for here) Https://Virident Systems.org/ Academic and creative: www.Proformative.org; www.blog.Mipagar.org Tips for online learning: www.[employer] Drawing: On YouTube: Lunch Doodle with Talicious, and Draw everyday with FinesseMotorwayBuddy, also www.V-cube [place] Physical Activity [place] ClipCard -Like them for workouts Www.AssetAvenue Reaching out: www.RentlyticspeaceOndaVial.org Music: WRSI Quaranthemes with Bryant Joshua 6-9am, [...] (04/12/2023): Had panic attacks on trip to [place], see history, when had stress of mom's [...] Thyroid disease, No family history of *Sudden /CA under 55, No family history of Migraines, [...] 04/12/2023, 11/22/2021 Procedures * Due to [place] Grapeword law, this organization might not be sharing sensitive test results. Procedure Name Priority Date/Time Associated Diagnosis Comments CHLAMYDIA AND GONORRHEA, AMPLIFIED Routine 04/15/2024 2:46 PM EDT Encounter for screening examination for chlamydial infection from Last 3 Months or Most Recently Relevant to Health Maintenance Results * Due to [place] Grapeword law, this organization might not be sharing sensitive test results. * Chlamydia and Gonorrhoea, Amplified (Urine) (04/15/2024 2:46 PM EDT) C trach TYRELL Negative Negative [facility] N gonorrhoeae TYRELL Negative Negative [facility] Urine (Urine, Random (not clean void)) 04/15/2024 2:46 PM EDT 04/15/2024 Comment:UR Narrative [facility] - 04/16/2024 4:08 PM EDT Performed at: 01 - [facility] [place] [address], [address], [place], [place] [id number] Precision Filer Hand: Levon Aguilar MD, Phone: [phone] us Niles Gray MD LAB MICROBIOLOGY - GENERAL OR DERABLES Final Result [facility] [address] [place] [address] from Last 3 Months or Most Recently Relevant to Health Maintenance
--- OUTSIDE RECORDS SUMMARY | 2025-07-13 12:05 | XMS_ITS | Encounter Summary ---
Author Organization [facility] Address [address] [place] [address] Phone Care Team Providers Care Commissions Coordinator Name Role Phone Provider, Janine NICHOLAS Primary Care Provider [phone] Encounter Details Date Type Department Care Team (Late st Contact Info) Description 04/29/2017 Documentation [facility] [place] Family Medicine [address] [place] [address] Family Medicine, Physician [address] [phone] Social History Tobacco Use Types Packs/Day Years [...] on filedocumented in this encounter Care Teams Commissions Coordinator Relationship Specialty Start Date End Date Provider, MD Janine [address] [place] [address] PCP - General Pediatrics 09/26/24 10/13/24 documented as of this encounter
--- OUTSIDE RECORDS SUMMARY | 2025-07-13 12:05 | XMS_ITS | Encounter Summary ---
Author Organization [facility] Address [address] [place] [address] Phone Care Team Providers Care Mechanical Assembly Technician Name Role Phone Provider, Janine NICHOLAS Primary Care Provider [phone] Encounter Details Date Type Department Care Team (Late st Contact Info) Description 08/10/2015 Documentation [facility] [place] Medicine [address] [place] [address] Family Medicine, Physician [address], [place] [phone] Social History Tobacco Use Types Packs/Day Years [...] on filedocumented in this encounter Care Teams Mechanical Assembly Technician Relationship Specialty Start Date End Date Provider, MD Janine [address] [place] [address] PCP - General Pediatrics 09/26/24 10/13/24 documented as of this encounter
--- OUTSIDE RECORDS SUMMARY | 2025-07-13 12:05 | XMS_ITS | Encounter Summary ---
Author Organization [facility] Address [address] [place] [address] Phone Care Team Providers Care Component Inspector Name Role Phone Provider, Janine NICHOLAS Primary Care Provider [phone] Reason for Visit * Reason Comments Med Refill Encounter Details Date Type Department Care Team ([facility] st Contact Info) Description 06/23/2019 Refill [facility] - [address] [address] Niles Gray MD Other mixed anxiety disorders [...] disorders documented in this encounter Care Teams Component Inspector Relationship Specialty Start Date End Date Provider, MD Janine [address] [place] [phone] PCP - General Pediatrics 09/26/24 10/13/24 documented as of this encounter
--- OUTSIDE RECORDS SUMMARY | 2025-07-13 12:05 | XMS_ITS | Encounter Summary ---
Author Organization [facility] Address [address] [place] [address] Phone Care Team Providers Care Pulper Operator Name Role Phone Provider, Janine NICHOLAS Primary Care Provider [phone] Encounter Details Date Type Department Care Team (Late st Contact Info) Description 01/19/2010 Documentation [facility] [place] Family Medicine [address] [place] [address] Family Medicine, Physician [address], [place] [phone] Social History Tobacco Use Types Packs/Day Years [...] on filedocumented in this encounter Care Teams Pulper Operator Relationship Specialty Start Date End Date Provider, MD Janine [address] [place] [address] PCP - General Pediatrics 09/26/24 10/13/24 documented as of this encounter
--- OUTSIDE RECORDS SUMMARY | 2025-07-13 12:05 | XMS_ITS | Encounter Summary ---
Author Organization [facility] Address [address] [place] [address] Phone Care Team Providers Care Automatic Log Cut Off Sawyer Name Role Phone Provider, Janine NICHOLAS Primary Care Provider [phone] Encounter Details Date Type Department Care Team ([facility] st Contact Info) Description 05/23/2017 Conversion Encounter [facility] [address] [address] Social History Tobacco Use Types Packs/Day Years [...] on filedocumented in this encounter Care Teams Automatic Log Cut Off Sawyer Relationship Specialty Start Date End Date Provider, MD Janine [address] [place] [address] PCP - General Pediatrics 09/26/24 10/13/24 documented as of this encounter
--- OUTSIDE RECORDS SUMMARY | 2025-07-13 12:05 | XMS_ITS | Encounter Summary ---
Author Organization [facility] Address [address] [place] [address] Phone Care Team Providers Care Machinist Outside Name Role Phone Provider, Janine NICHOLAS Primary Care Provider [phone] Reason for Visit * Reason Comments Med Refill Encounter Details Date Type Department Care Team ([facility] Contact Info) Description 02/25/2022 Refill [facility] [address] [place] [address] Niles Gray MD Fatigue, unspecified type; Iron [...] she should be getting vitamins from her embedded systems developer. Is she ? Or was he just giving them as a precaution? Could you check with her? And if she's , can you have her call her embedded systems developer? * Telephone Encounter - Myla Wright MA - 02/27/2022 9:55 AM EDT Pharm refill for pre vitamins. Message to covering provider. DG out. documented in this encounter Plan of Treatment Not on file documented as of this encounter Visit Diagnoses Diagnosis Fatigue, unspecified type Iron deficiency Disorders of iron metabolism documented in this encounter Care Teams Machinist Outside Relationship Specialty Start Date End Date Provider, MD Janine [address] [place] [address] PCP - General Pediatrics 09/26/24 10/13/24 documented as of this encounter
--- OUTSIDE RECORDS SUMMARY | 2025-07-13 12:05 | XMS_ITS | Encounter Summary ---
Author Organization [facility] Address [address] [place] [address] Phone Care Team Providers Care Hat Body Inspector Name Role Phone Provider, Janine NICHOLAS Primary Care Provider [phone] Encounter Details Date Type Department Care Team (Late st Contact Info) Description 08/10/2015 [place]ation [facility] [place] [address] [place] [address] Family Medicine, Physician [address] [phone] Social History Tobacco Use Types Packs/Day Years [...] on filedocumented in this encounter Care Teams Hat Body Inspector Relationship Specialty Start Date End Date Provider, MD Janine [address] [place] [address] PCP - General Pediatrics 09/26/24 10/13/24 documented as of this encounter
--- OUTSIDE RECORDS SUMMARY | 2025-07-13 12:05 | XMS_ITS | Encounter Summary ---
Author Organization [facility] Address [address] [place] [address] Phone Care Team Providers Care Formstone Fitter Name Role Phone Provider, Janine NICHOLAS Primary Care Provider [phone] Encounter Details Date Type Department Care Team (Late st Contact Info) Description 08/05/2013 Documentation [facility] [place] Family Medicine [address] [place] [address] Family Medicine, Physician [address], [place] [phone] Social History Tobacco Use Types Packs/Day Years [...] on filedocumented in this encounter Care Teams Formstone Fitter Relationship Specialty Start Date End Date Provider, MD Janine [address] [place] [address] PCP - General Pediatrics 09/26/24 10/13/24 documented as of this encounter
--- OUTSIDE RECORDS SUMMARY | 2025-07-13 12:05 | XMS_ITS | Encounter Summary ---
Author Organization [facility] Address [address] [place] [address] Phone Care Team Providers Care Sexual Abuse Counsellor Name Role Phone Provider, Janine NICHOLAS Primary Care Provider [phone] Reason for Visit * Reason Comments Med Refill Encounter Details Date Type Department Care Team ([facility] st Contact Info) Description 08/24/2019 Refill [facility] [address] [place] [address] Niles Rosales MD [address] [place] [address] Other mixed anxiety disorders Social History Tobacco [...] Nino LPN - 08/24/2019 9:23 AM EST [facility] PCP BLL: pharm fax refill request sertaline. Pt has PE for 09/01. EH documented in this encounter Plan of Treatment Not on file documented as of this encounter Visit Diagnoses Diagnosis Other mixed anxiety disorders documented in this encounter Care Teams Sexual Abuse Counsellor Relationship Specialty Start Date End Date Provider, MD Janine [address] [place] [address] PCP - General Pediatrics 09/26/24 10/13/24 documented as of this encounter
--- OUTSIDE RECORDS SUMMARY | 2025-07-13 12:05 | XMS_ITS | Encounter Summary ---
Author Organization [facility] Address [address] [place] [address] Phone Care Team Providers Care Track Walker Name Role Phone Provider, Janine NICHOLAS Primary Care Provider [phone] Encounter Details Date Type Department Care Team (Late st Contact Info) Description 04/04/2011 Documentation [facility] [place] Family Medicine [address] [place] [address] Family Medicine, Physician [address] [place] [phone] Social History Tobacco Use Types Packs/Day Years [...] on filedocumented in this encounter Care Teams Track Walker Relationship Specialty Start Date End Date Provider, MD Janine [address] [place] [address] PCP - General Pediatrics 09/26/24 10/13/24 documented as of this encounter
--- OUTSIDE RECORDS SUMMARY | 2025-07-13 12:05 | XMS_ITS | Encounter Summary ---
Author Organization [facility] Address [address] [place] [address] Phone Care Team Providers Care Retail Customer Service Specialist Name Role Phone Provider, Janine NICHOLAS Primary Care Provider [phone] Encounter Details Date Type Department Care Team (Late st Contact Info) Description 01/06/2010 Documentation [facility] [place] [address] [place] [address] Family Medicine, Physician [address], [place] [phone] Social History Tobacco Use Types Packs/Day Years [...] on filedocumented in this encounter Care Teams Retail Customer Service Specialist Relationship Specialty Start Date End Date Provider, MD Janine [address] [place] [address] PCP - General Pediatrics 09/26/24 10/13/24 documented as of this encounter
--- OUTSIDE RECORDS SUMMARY | 2025-07-13 12:05 | XMS_ITS | Encounter Summary ---
Author Organization [facility] Address [address] [place] [address] Phone Care Team Providers Care Sounding Device Operator Name Role Phone Provider, Janine NICHOLAS Primary Care Provider [phone] Encounter Details Date Type Department Care Team (Late st Contact Info) Description 08/05/2013 Documentation [facility] [place] Family Medicine [address] [place] [address] Family Medicine, Physician [address], [place] [phone] Social History Tobacco Use Types Packs/Day Years [...] on filedocumented in this encounter Care Teams Sounding Device Operator Relationship Specialty Start Date End Date Provider, MD Janine [address] [place] [address] PCP - General Pediatrics 09/26/24 10/13/24 documented as of this encounter
--- OUTSIDE RECORDS SUMMARY | 2025-07-13 12:05 | XMS_ITS | Encounter Summary ---
Author Organization [facility] Address [address] [place] [address] Phone Care Team Providers Care Revenue Tax Specialist Name Role Phone Provider, Janine NICHOLAS Primary Care Provider [phone] Encounter Details Date Type Department Care Team (Late st Contact Info) Description 07/18/2011 Documentation [facility] [place] [address] [place] [address] Family Medicine, Physician [address] [place], [place] [phone] Social History Tobacco Use Types Packs/Day Years [...] on filedocumented in this encounter Care Teams Revenue Tax Specialist Relationship Specialty Start Date End Date Provider, MD Janine [address] [place] [address] PCP - General Pediatrics 09/26/24 10/13/24 documented as of this encounter
--- OUTSIDE RECORDS SUMMARY | 2025-07-13 12:05 | XMS_ITS | Encounter Summary ---
Author Organization [facility] Address [address] [place] [address] Phone Care Team Providers Care Shear Operator Helper Name Role Phone Provider, Janine NICHOLAS Primary Care Provider [phone] Encounter Details Date Type Department Care Team (Late st Contact Info) Description 08/23/2016 Documentation [facility] [place] Medicine [address] [place] [address] Family Medicine, Physician [address], [place] [phone] Social History Tobacco Use Types Packs/Day Years [...] on filedocumented in this encounter Care Teams Shear Operator Helper Relationship Specialty Start Date End Date Provider, MD Janine [address] [place] [address] PCP - General Pediatrics 09/26/24 10/13/24 documented as of this encounter
--- OUTSIDE RECORDS SUMMARY | 2025-07-13 12:05 | XMS_ITS | Encounter Summary ---
Author Organization [facility] Address [address] [place] [address] Phone Care Team Providers Care Stationary Plant Operators Name Role Phone Provider, Janine NICHOLAS Primary Care Provider [phone] Encounter Details Date Type Department Care Team (Late st Contact Info) Description 04/04/2011 Documentation [facility] [place] Family Medicine [address] [place] [address] Family Medicine, Physician [address], [place] [phone] Social History Tobacco Use Types Packs/Day Years [...] on filedocumented in this encounter Care Teams Stationary Plant Operators Relationship Specialty Start Date End Date Provider, MD Janine [address] [place] [address] PCP - General Pediatrics 09/26/24 10/13/24 documented as of this encounter
--- OUTSIDE RECORDS SUMMARY | 2025-07-13 12:05 | XMS_ITS | Encounter Summary ---
Author Organization [facility] Address [address] [place] [address] Phone Care Team Providers Care Ride Attendant Name Role Phone Provider, Janine NICHOLAS Primary Care Provider Encounter Details Date Type Department Care Team (Late st Contact Info) Description 08/23/2016 Documentation [facility] [place] Family Medicine [address] [place] [address] Family Medicine, Physician [address], [place] [phone] Social History Tobacco Use Types Packs/Day Years [...] Date End Date Provider, MD Janine [address] [place] [address] PCP - General Pediatrics 09/26/24 10/13/24 documented as of this encounter
--- OUTSIDE RECORDS SUMMARY | 2025-07-13 12:05 | XMS_ITS | Encounter Summary ---
Author Organization [facility] Address [address] [place] [address] Phone Care Team Providers Care Studio Couch Frame Builder Name Role Phone Provider, Janine NICHOLAS Primary Care Provider [phone] Encounter Details Date Type Department Care Team (Late st Contact Info) Description 04/23/2012 Documentation [facility] [place] [address] [place] [address] Family Medicine, Physician [address], [place] [phone] Social History Tobacco Use Types Packs/Day Years [...] on filedocumented in this encounter Care Teams Studio Couch Frame Builder Relationship Specialty Start Date End Date Provider, MD Janine [address] [place] [address] PCP - General Pediatrics 09/26/24 10/13/24 documented as of this encounter
--- OUTSIDE RECORDS SUMMARY | 2025-07-13 12:05 | XMS_ITS | Encounter Summary ---
Author Organization [facility] Address [address] [place] [address] Phone Care Team Providers Care Grab Jack Man Name Role Phone Provider, Janine NICHOLAS Primary Care Provider [phone] Encounter Details Date Type Department Care Team (Late st Contact Info) Description 04/04/2011 Documentation [facility] [place] Family Medicine [address] [place] [address] Family Medicine, Physician [address], [place] [phone] Social History Tobacco Use Types Packs/Day Years [...] on filedocumented in this encounter Care Teams Grab Jack Man Relationship Specialty Start Date End Date Provider, MD Janine [address] [place] [address] PCP - General Pediatrics 09/26/24 10/13/24 documented as of this encounter
--- OUTSIDE RECORDS SUMMARY | 2025-07-13 12:05 | XMS_ITS | Encounter Summary ---
Author Organization [facility] Address [address] [place] [address] Phone Care Team Providers Care Interpreter And Translator Name Role Phone Provider, Janine NICHOLAS Primary Care Provider [phone] Encounter Details Date Type Department Care Team (Late st Contact Info) Description 07/18/2011 Documentation [facility] [place] Family Medicine [address] [place] [address] Family Medicine, Physician [address], [place] [phone] Social History Tobacco Use Types Packs/Day Years [...] on filedocumented in this encounter Care Teams Interpreter And Translator Relationship Specialty Start Date End Date Provider, MD Janine [address] [place] [address] PCP - General Pediatrics 09/26/24 10/13/24 documented as of this encounter
--- OUTSIDE RECORDS SUMMARY | 2025-07-13 12:05 | XMS_ITS | Encounter Summary ---
Author Organization [facility] Address [address] [place] [address] Phone Care Team Providers Care Strap Buckler Machine Name Role Phone Provider, Janine NICHOLAS Primary Care Provider [phone] Encounter Details Date Type Department Care Team (Late st Contact Info) Description 08/23/2016 Documentation [facility] [place] [address] [place] [address] Family Medicine, Physician [address], [place] [phone] Social History Tobacco Use Types Packs/Day Years [...] on filedocumented in this encounter Care Teams Strap Buckler Machine Relationship Specialty Start Date End Date Provider, MD Janine [address] [place] [address] PCP - General Pediatrics 09/26/24 10/13/24 documented as of this encounter
--- OUTSIDE RECORDS SUMMARY | 2025-07-13 12:05 | XMS_ITS | Encounter Summary ---
Author Organization [facility] Address [address] [place] [address] Phone Care Team Providers Care Radioisotope Technologist Name Role Phone Provider, Janine NICHOLAS Primary Care Provider [phone] Reason for Visit * Reason Comments Med Refill Encounter Details Date Type Department Care Team ([facility] st Contact Info) Description 09/23/2021 Refill [facility] [address] [place] [address] Niles Gray MD Other mixed anxiety disorders [...] 09/01/2019 Missing School or Work Answer Date Hecotr rded Did you or your child miss [...] disorders documented in this encounter Care Teams Radioisotope Technologist Relationship Specialty Start Date End Date Provider, MD Janine [address] [place] [address] PCP - General Pediatrics 09/26/24 10/13/24 documented as of this encounter
== END 2025-07-13 11:31 | disposition home or self-care (01) ==
PROVIDERS: PCP Physician Assistant; Visit Provider Physician Assistant
DX: L02.91 Cutaneous abscess, unspecified (principal)

== ENCOUNTER 2025-08-16 09:56 | Outpatient (AMB) | payer BC, SELFPAY ==
--- NOTE | 2025-08-16 10:13 | AM.OFFVISNUR ---
Vital Signs 08/16/25 10:21 Height 5 ft 6 in Weight 120 lb BMI 19.4 Intake Visit Reasons: depo Allergies No Known Allergies Allergy (Verified 07/13/25 10:33) Nursing Note Patient here for scheduled depo injection. test done and was negative. Patient tolerated injection well. Next injedtion due for 11/01/2025 thru 11/15/25 Office Procedures Depo Questionnaire If YES to any of the following questions, please consult a provider. Date of last injection: 05/12/25 Date of last gynecology exam: 02/19/25 Menstrual pattern since last injection has been: Not Applicable test in office results: Negative Irregular bleeding?: Not Applicable Breast lumps or other breast changes?: No Changes in weight or appetite?: No Depression or changes in mood?: No Abnormal hair growth or loss?: No Skin problems (rash, acne, discoloration)?: No Pain at the injection site?: No Headaches?: No Nervousness?: No Abdominal pain or cramping?: No Dizziness or nausea?: No Fatigue or weakness?: No Decrease in sexual drive?: No Chest pain or shortness of breath?: No Swelling in arms or legs?: No Any other problems or concerns?: none Form completed by?: Supriya WANG Office Meds Depo-Provera 150 mg/mL intramuscular syringe Performing Provider: Trang Krishnamurthy CNM Performing Location[place] [facility] [place] [facility] Administered by: Rowena Manuel LPN on 08/16/25 10:15 Dose Route Admin Location Dispensed Lot Number Expiration Date [facility] Office Technology Instructor 150 mg IM RGM 1 mL [id number] 12/04/27 58014-465-96 [facility] Total Dispensed Waste 1 mL 0 % Results AMB Test Urine AMB Test Urine Negative Last Edit by Rowena Manuel LPN on 08/16/25 10:21 Assessment & Plan Assessment & Plan Orders: Orders AMB HCG Urine Test Today Z32.02 - Encounter for test, result negative AMB Medroxyprogesterone Injection Patient Supplied Today Z30.42 - Encounter for surveillance of injectable contraceptive Coding Level of Care Code Established Pt Est Pt Level 1 (52873) Patient Type Established History Problem Focused Exam Problem Focused Medical Decision Making Straight Forward Time Spent (min) 20
[2025-08-16 10:21] VITALS: BMI 19.4
--- OUTSIDE RECORDS SUMMARY | 2025-08-16 11:25 | XMS_ITS | Encounter Summary ---
Author Organization [facility] Address [address] [place] [address] Phone Care Team Providers Care Directional Survey Drafter Name Role Phone Provider, Janine NICHOLAS Primary Care Provider [phone] Encounter Details Date Type Department Care Team (Late st Contact Info) Description 04/29/2017 Documentation [facility] [place] Family Medicine [address] [place] [address] Family Medicine, Physician [address], [place] [phone] Social History Tobacco Use Types Packs/Day Years [...] on filedocumented in this encounter Care Teams Directional Survey Drafter Relationship Specialty Start Date End Date Provider, MD Janine [address] [place] [address] PCP - General Pediatrics 09/26/24 10/13/24 documented as of this encounter
--- OUTSIDE RECORDS SUMMARY | 2025-08-16 11:25 | XMS_ITS | Encounter Summary ---
Author Organization [facility] Address [address] [place] [address] Phone Care Team Providers Care Quality Assurance Tester Name Role Phone Provider, Janine NICHOLAS Primary Care Provider [phone] Reason for Visit * Reason Comments Med Refill Encounter Details Date Type Department Care Team ([facility] st Contact Info) Description 08/24/2019 Refill [facility] [address] [place] [address] Niles Rosales MD [address] [place] [address] Other mixed anxiety disorders Social History Tobacco [...] Nino LPN - 08/24/2019 9:23 AM EST [facility] PCP BLL: pharm fax refill request sertaline. Pt has PE for 09/01. EH documented in this encounter Plan of Treatment Not on file documented as of this encounter Visit Diagnoses Diagnosis Other mixed anxiety disorders documented in this encounter Care Teams Quality Assurance Tester Relationship Specialty Start Date End Date Provider, MD Janine [address] [place] [address] PCP - General Pediatrics 09/26/24 10/13/24 documented as of this encounter
--- OUTSIDE RECORDS SUMMARY | 2025-08-16 11:25 | XMS_ITS | Clinical Summary ---
Author Organization [facility] Address [address] [place] [address] Phone Care Team Providers Care Roller Engraver Name Role Phone Unavailable Primary Care Provider [...] save says ate less with anxiety/panic in [place]. Probably true but should rule out hypo/hyper [...] friends, no panic attacks since trip to [place] in the summer. 11/30: continues to do [...] time. General Guidelines: www.healthychildren.org Nature and Gardening: Https://ETARGET.org/ResourceType/infosheet/, Https://FlightStats.gaytravel.com; www.childrenandnature.org Www.natureplayqld.org.au (in [place], still good for here) Https://Novacta Biosystems.org/ Academic and creative: www.eTec.org; www.blog.Wappwolf.org Tips for online learning: www.NewRiver Drawing: On YouTube: Lunch Doodle with InteliVideo, and Draw everyday with FinesseOn Demand [employer], also www.Brickell [employer]otech Physical Activity [facility] -Like them for workouts Www.VIA Pharmaceuticals Reaching out: www.Vertex PharmaceuticalspeaceLinguaNextl.org Music: WRSI Quaranthemes with Bryant Joshua 6-9am, [...] (04/12/2023): Had panic attacks on trip to [place], see history, when had stress of mom's [...] Thyroid disease, No family history of *Sudden /[place] under 55, No family history of Migraines, [...] Completed 04/12/2023, 11/22/2021 Procedures * Due to [place] AMT law, this organization might not be sharing sensitive test results. Procedure Name Priority Date/Time Associated Diagnosis Comments CHLAMYDIA AND GONORRHEA, AMPLIFIED Routine 04/15/2024 2:46 PM EDT Encounter for screening examination for chlamydial infection from Last 3 Months or Most Recently Relevant to Health Maintenance Results * Due to [place] AMT law, this organization might not be sharing sensitive test results. * Chlamydia and Gonorrhoea, Amplified (Urine) (04/15/2024 2:46 PM EDT) C trach TYRELL Negative Negative [facility] N gonorrhoeae TYRELL Negative Negative [facility] Urine (Urine, Random (not clean void)) 04/15/2024 2:46 PM EDT 04/15/2024 Comment:UR Narrative [facility] - 04/16/2024 4:08 PM EDT Performed at: 01 - [facility] [place] [address], [address], [place], [place] [id number] Set Off Press Operator: Levon Aguilar MD, Phone: [phone] us Niles Gray MD LAB MICROBIOLOGY - GENERAL OR DERABLES Final Result [facility] [address] [place] [address] from Last 3 Months or Most Recently Relevant to Health Maintenance
--- OUTSIDE RECORDS SUMMARY | 2025-08-16 11:25 | XMS_ITS | Encounter Summary ---
Author Organization [facility] Address [address] [place] [address] Phone Care Team Providers Care Automobile Radio Repairer Name Role Phone Provider, Janine NICHOLAS Primary Care Provider [phone] Encounter Details Date Type Department Care Team ([facility] st Contact Info) Description 05/23/2017 Conversion Encounter [facility] [address] [address] Social History Tobacco Use Types Packs/Day Years [...] on filedocumented in this encounter Care Teams Automobile Radio Repairer Relationship Specialty Start Date End Date Provider, MD Janine [address] [place] [address] PCP - General Pediatrics 09/26/24 10/13/24 documented as of this encounter
--- OUTSIDE RECORDS SUMMARY | 2025-08-16 11:25 | XMS_ITS | Encounter Summary ---
Author Organization [facility] Address [address] [place] [address] Phone Care Team Providers Care Service Member Name Role Phone Provider, Janine NICHOLAS Primary Care Provider [phone] Reason for Visit * Reason Comments Med Refill Encounter Details Date Type Department Care Team ([facility] st Contact Info) Description 06/23/2019 Refill [facility] - [address] [address] Niles Gray MD Other mixed anxiety disorders [...] disorders documented in this encounter Care Teams Service Member Relationship Specialty Start Date End Date Provider, MD Janine [address] [place] [address] PCP - General Pediatrics 09/26/24 10/13/24 documented as of this encounter
--- OUTSIDE RECORDS SUMMARY | 2025-08-16 11:26 | XMS_ITS | Encounter Summary ---
Author Organization [facility] Address [address] [place] [address] Phone Care Team Providers Care Table Assembler Name Role Phone Provider, Janine NICHOLAS Primary Care Provider [phone] Encounter Details Date Type Department Care Team (Late st Contact Info) Description 04/23/2012 Documentation [facility] [place] Family Medicine [address] [place] [address] Family Medicine, Physician [address], [place] [phone] Social History Tobacco Use Types Packs/Day Years [...] on filedocumented in this encounter Care Teams Table Assembler Relationship Specialty Start Date End Date Provider, MD Janine [address] [place] [address] PCP - General Pediatrics 09/26/24 10/13/24 documented as of this encounter
--- OUTSIDE RECORDS SUMMARY | 2025-08-16 11:26 | XMS_ITS | Encounter Summary ---
Author Organization [facility] Address [address] [place] [address] Phone Care Team Providers Care Pharmacy Sales Representative Name Role Phone Provider, Janine NICHOLAS Primary Care Provider [phone] Encounter Details Date Type Department Care Team (Late st Contact Info) Description 08/05/2013 Documentation [facility] [place] [address] [place] [address] Family Medicine, Physician [address], [place] [phone] Social History Tobacco Use Types Packs/Day Years [...] on filedocumented in this encounter Care Teams Pharmacy Sales Representative Relationship Specialty Start Date End Date Provider, MD Janine [address] [place] [address] PCP - General Pediatrics 09/26/24 10/13/24 documented as of this encounter
--- OUTSIDE RECORDS SUMMARY | 2025-08-16 11:26 | XMS_ITS | Encounter Summary ---
Author Organization [facility] Address [address] [place] [address] Phone Care Team Providers Care Edge Baster Name Role Phone Provider, Janine NICHOLAS Primary Care Provider [phone] Encounter Details Date Type Department Care Team (Late st Contact Info) Description 04/04/2011 Documentation [facility] [place] Family Medicine [address] [place] [address] Family Medicine, Physician [address] [place], [place] [phone] Social History Tobacco Use Types Packs/Day Years [...] on filedocumented in this encounter Care Teams Edge Baster Relationship Specialty Start Date End Date Provider, MD Janine [address] [place] [address] PCP - General Pediatrics 09/26/24 10/13/24 documented as of this encounter
--- OUTSIDE RECORDS SUMMARY | 2025-08-16 11:26 | XMS_ITS | Encounter Summary ---
Author Organization [facility] Address [address] [place] [address] Phone Care Team Providers Care Commutator Undercutter Name Role Phone Provider, Janine NICHOLAS Primary Care Provider Encounter Details Date Type Department Care Team (Late st Contact Info) Description 08/23/2016 Documentation [facility] [place] Family Medicine [address] [place] [address] Family Medicine, Physician [address] [place] [phone] Social History Tobacco Use Types Packs/Day Years [...] on filedocumented in this encounter Care Teams Commutator Undercutter Relationship Specialty Start Date End Date Provider, MD Janine [address] [place] [address] PCP - General Pediatrics 09/26/24 10/13/24 documented as of this encounter
--- OUTSIDE RECORDS SUMMARY | 2025-08-16 11:26 | XMS_ITS | Encounter Summary ---
Author Organization [facility] Address [address] [place] [address] Phone Care Team Providers Care Ict Development Manager Name Role Phone Provider, Janine NICHOLAS Primary Care Provider [phone] Encounter Details Date Type Department Care Team (Late st Contact Info) Description 07/18/2011 Documentation [facility] [place] [address] [place] [address] Family Medicine, Physician [address] [place], [place] [phone] Social History Tobacco Use Types Packs/Day Years [...] on filedocumented in this encounter Care Teams Ict Development Manager Relationship Specialty Start Date End Date Provider, MD Janine [address] [place] [address] PCP - General Pediatrics 09/26/24 10/13/24 documented as of this encounter
--- OUTSIDE RECORDS SUMMARY | 2025-08-16 11:26 | XMS_ITS | Encounter Summary ---
Author Organization [facility] Address [address] [place] [address] Phone Care Team Providers Care Engraving Press Operator Name Role Phone Provider, Janine NICHOLAS Primary Care Provider [phone] Reason for Visit * Reason Comments Med Refill Encounter Details Date Type Department Care Team ([facility] st Contact Info) Description 09/23/2021 Refill [facility] [address] [place] [address] Niles Gray MD Other mixed anxiety disorders [...] disorders documented in this encounter Care Teams Engraving Press Operator Relationship Specialty Start Date End Date Provider, MD Janine [address] [place] [phone] PCP - General Pediatrics 09/26/24 10/13/24 documented as of this encounter
--- OUTSIDE RECORDS SUMMARY | 2025-08-16 11:26 | XMS_ITS | Encounter Summary ---
Author Organization [facility] Address [address] [place] [address] Phone Care Team Providers Care Needle Control Cheniller Name Role Phone Provider, Janine NICHOLAS Primary Care Provider [phone] Encounter Details Date Type Department Care Team (Late st Contact Info) Description 01/19/2010 Documentation [facility] [place] Family Medicine [address] [place] [address] Family Medicine, Physician [address], [place] [phone] Social History Tobacco Use Types Packs/Day Years [...] on filedocumented in this encounter Care Teams Needle Control Cheniller Relationship Specialty Start Date End Date Provider, MD Janine [address] [place] [address] PCP - General Pediatrics 09/26/24 10/13/24 documented as of this encounter
--- OUTSIDE RECORDS SUMMARY | 2025-08-16 11:26 | XMS_ITS | Encounter Summary ---
Author Organization [facility] Address [address] [place] [address] Phone Care Team Providers Care Program Coordinator For Residence Life Name Role Phone Provider, Janine NICHOLAS Primary Care Provider [phone] Encounter Details Date Type Department Care Team (Late st Contact Info) Description 04/04/2011 Documentation [facility] [place] [address] [place] [address] Family Medicine, Physician [address] [place], [place] [phone] Social History Tobacco Use Types Packs/Day Years [...] on filedocumented in this encounter Care Teams Program Coordinator For Residence Life Relationship Specialty Start Date End Date Provider, MD Janine [address] [place] [address] PCP - General Pediatrics 09/26/24 10/13/24 documented as of this encounter
--- OUTSIDE RECORDS SUMMARY | 2025-08-16 11:26 | XMS_ITS | Encounter Summary ---
Author Organization [facility] Address [address] [place] [address] Phone Care Team Providers Care Glue Drier Operator Name Role Phone Provider, Janine NICHOLAS Primary Care Provider [phone] Encounter Details Date Type Department Care Team (Late st Contact Info) Description 01/06/2010 [place]ation [facility] [place] [address] [place] [address] Family Medicine, Physician [address] [place] [phone] Social History Tobacco Use Types Packs/Day Years [...] on filedocumented in this encounter Care Teams Glue Drier Operator Relationship Specialty Start Date End Date Provider, MD Janine [address] [place] [address] PCP - General Pediatrics 09/26/24 10/13/24 documented as of this encounter
--- OUTSIDE RECORDS SUMMARY | 2025-08-16 11:26 | XMS_ITS | Encounter Summary ---
Author Organization [facility] Address [address] [place] [address] Phone Care Team Providers Care Silver Brazer Name Role Phone Provider, Janine NICHOLAS Primary Care Provider [phone] Reason for Visit * Reason Comments Med Refill Encounter Details Date Type Department Care Team ([facility] Contact Info) Description 02/25/2022 Refill [facility] [address] [place] [address] Niles Gray MD Fatigue, unspecified type; Iron [...] she should be getting vitamins from her architecture instructor. Is she ? Or was he just giving them as a precaution? Could you check with her? And if she's , can you have her call her architecture instructor? * Telephone Encounter - Myla Wright MA - 02/27/2022 9:55 AM EDT Pharm refill for pre janice vitamins. Message to covering provider. DG out. documented in this encounter Plan of Treatment Not on file documented as of this encounter Visit Diagnoses Diagnosis Fatigue, unspecified type Iron deficiency Disorders of iron metabolism documented in this encounter Care Teams Silver Brazer Relationship Specialty Start Date End Date Provider, MD Janine [address] [place] [address] PCP - General Pediatrics 09/26/24 10/13/24 documented as of this encounter
--- OUTSIDE RECORDS SUMMARY | 2025-08-16 11:26 | XMS_ITS | Encounter Summary ---
Author Organization [facility] Address [address] [place] [address] Phone Care Team Providers Care Lead Ramp Service Man Name Role Phone Provider, Janine NICHOLAS Primary Care Provider [phone] Encounter Details Date Type Department Care Team (Late st Contact Info) Description 04/04/2011 Documentation [facility] [place] Family Medicine [address] [place] [address] Family Medicine, Physician [address], [place] [phone] Social History Tobacco Use Types Packs/Day Years [...] on filedocumented in this encounter Care Teams Lead Ramp Service Man Relationship Specialty Start Date End Date Provider, MD Janine [address] [place] [address] PCP - General Pediatrics 09/26/24 10/13/24 documented as of this encounter
--- OUTSIDE RECORDS SUMMARY | 2025-08-16 11:26 | XMS_ITS | Encounter Summary ---
Author Organization [facility] Address [address] [place] [address] Phone Care Team Providers Care Casting Machine Service Operator Name Role Phone Provider, Janine NICHOLAS Primary Care Provider [phone] Encounter Details Date Type Department Care Team (Late st Contact Info) Description 08/10/2015 Documentation [facility] [place] [address] [place] [address] Family Medicine, Physician [address] [place], [place] [phone] Social History Tobacco Use Types Packs/Day Years [...] on filedocumented in this encounter Care Teams Casting Machine Service Operator Relationship Specialty Start Date End Date Provider, MD Janine [address] [place] [address] PCP - General Pediatrics 09/26/24 10/13/24 documented as of this encounter
--- OUTSIDE RECORDS SUMMARY | 2025-08-16 11:26 | XMS_ITS | Encounter Summary ---
Author Organization [facility] Address [address] [place] [address] Phone Care Team Providers Care Sheet Metal Worker Maintenance Name Role Phone Provider, Janine NICHOLAS Primary Care Provider [phone] Encounter Details Date Type Department Care Team (Late st Contact Info) Description 08/23/2016 Documentation [facility] [place] Family Medicine [address] [place] [address] Family Medicine, Physician [address] [place], [place] [phone] Social History Tobacco Use Types Packs/Day Years [...] on filedocumented in this encounter Care Teams Sheet Metal Worker Maintenance Relationship Specialty Start Date End Date Provider, MD Janine [address] [place] [address] PCP - General Pediatrics 09/26/24 10/13/24 documented as of this encounter
--- OUTSIDE RECORDS SUMMARY | 2025-08-16 11:26 | XMS_ITS | Encounter Summary ---
Author Organization [facility] Address [address] [place] [address] Phone Care Team Providers Care Production Weigher Name Role Phone Provider, Janine NICHOLAS Primary Care Provider [phone] Encounter Details Date Type Department Care Team (Late st Contact Info) Description 08/23/2016 Documentation [facility] [place] Family Medicine [address] [place] [address] Family Medicine, Physician [address] [place], [place] [phone] Social History Tobacco Use Types Packs/Day Years [...] filedocumented in this encounter Care Teams Production Weigher Relationship Specialty Start Date End Date Provider, MD Janine [address] [place] [address] PCP - General Pediatrics 09/26/24 10/13/24 documented as of this encounter
--- OUTSIDE RECORDS SUMMARY | 2025-08-16 11:26 | XMS_ITS | Encounter Summary ---
Author Organization [facility] Address [address] [place] [address] Phone Care Team Providers Care Automotive Detailer Name Role Phone Provider, Janine NICHOLAS Primary Care Provider [phone] Encounter Details Date Type Department Care Team (Late st Contact Info) Description 08/05/[address] [facility] [place] Family Medicine [address] [place] [address] Family Medicine, Physician [address] [place], [place] [phone] Social History Tobacco Use Types Packs/Day Years [...] filedocumented in this encounter Care Teams Automotive Detailer Relationship Specialty Start Date End Date Provider, MD Janine [address] [place] [address] PCP - General Pediatrics 09/26/24 10/13/24 documented as of this encounter
--- OUTSIDE RECORDS SUMMARY | 2025-08-16 11:26 | XMS_ITS | Encounter Summary ---
Author Organization [facility] Address [address] [place] [address] Phone Care Team Providers Care Certified Ethical Hacker Name Role Phone Provider, Janine NICHOLAS Primary Care Provider [phone] Encounter Details Date Type Department Care Team (Late st Contact Info) Description 04/23/2012 Documentation [facility] [place] [address] [place] [address] Family Medicine, Physician [address] [place], [place] [phone] Social History Tobacco Use Types Packs/Day Years [...] on filedocumented in this encounter Care Teams Certified Ethical Hacker Relationship Specialty Start Date End Date Provider, MD Janine [address] [place] [address] PCP - General Pediatrics 09/26/24 10/13/24 documented as of this encounter
--- OUTSIDE RECORDS SUMMARY | 2025-08-16 11:26 | XMS_ITS | Encounter Summary ---
Author Organization [facility] Address [address] [place] [address] Phone Care Team Providers Care Acid Treater Name Role Phone Provider, Janine NICHOLAS Primary Care Provider Encounter Details Date Type Department Care Team (Late st Contact Info) Description 07/18/2011 Documentation [facility] [place] [address] [place] [address] Family Medicine, Physician [address] [place], [place] [phone] Social History Tobacco Use Types Packs/Day Years [...] filedocumented in this encounter Care Teams Acid Treater Relationship Specialty Start Date End Date Provider, MD Janine [address] [place] [address] PCP - General Pediatrics 09/26/24 10/13/24 documented as of this encounter
--- OUTSIDE RECORDS SUMMARY | 2025-08-16 11:26 | XMS_ITS | Encounter Summary ---
Author Organization [facility] Address [address] [place] [address] Phone Care Team Providers Care Home Organizer Name Role Phone Provider, Janine NICHOLAS Primary Care Provider [phone] Encounter Details Date Type Department Care Team (Late st Contact Info) Description 08/10/2015 Documentation [facility] [place] [address] [place] [address] Family Medicine, Physician [address] [place], [place] [phone] Social History Tobacco Use Types Packs/Day Years [...] on filedocumented in this encounter Care Teams Home Organizer Relationship Specialty Start Date End Date Provider, MD Janine [address] [place] [address] PCP - General Pediatrics 09/26/24 10/13/24 documented as of this encounter
== END 2025-08-16 10:47 | disposition home or self-care (01) ==
LOC: HO.HWS 09:57
PROVIDERS: PCP Physician Assistant; Visit Provider Advanced Practice Midwife
DX: Z30.42 Encounter for surveillance of injectable contraceptive (principal); Z32.02 Encounter for pregnancy test, result negative
CPT/HCPCS: 99499

== ENCOUNTER → 2025-08-16 09:56 | Outpatient (BNVA) | payer BC, SELFPAY | PROVIDERS: PCP Physician Assistant; Visit Provider Advanced Practice Midwife | DX: Z30.013 Encounter for initial prescription of injectable contraceptive (principal); Z32.02 Encounter for pregnancy test, result negative | CPT/HCPCS: 81025; 96372; J1050 ==

== ENCOUNTER 2025-08-18 14:07 | Outpatient (AMB) | payer BC, SELFPAY ==
[2025-08-18 14:12] VITALS: BP 108/64; PULSE 92; RESP 12; O2SAT 98; BMI 19.7
--- NOTE | 2025-08-18 14:12 | MHC.PC.OV ---
Vital Signs 08/18/25 14:12 Height 5 ft 6 in Weight 122 lb BMI 19.7 BP 108/64 Blood Pressure Location Rt brachial Position Sitting Respiration 12 Pulse 92 Pulse Source Pulse Oximeter Pulse Oximetry (%) 98 Oxygen Delivery Method Room Air Intake Visit Reasons: gi Allergies No Known Allergies Allergy (Verified 07/13/25 10:33) Medication List - Last Reconciled 08/18/25 by Dinah Richmond PA-C cyanocobalamin (vitamin B-12) 1,000 mcg PO DAILY medroxyprogesterone (Depo-Provera) 150 mg IM Q12W sertraline 25 mg PO DAILY Tobacco use date assessed: 12/24/24 Dental Screening Dental Screen Date: 12/24/24 HPI gi HPI Details Patient is a 19-year-old female who presents today for a follow up Psych: she is currently on sertaline 25 mg and doing well. GI: has been getting abdominal pain and cramping with diarrhea. She states that it will happen randomly this has been going on for a couple years. It has recently gotten significantly worse where the diarrhea in the urge to have a bowel movement is urgent. She was referred to GI. She did have overall reassuring labs but has not yet completed all of the labs or stool studies. She had a negative ultrasound. Abdominal symptoms are a little bit better since I last saw her. No changes in weight. No nausea, vomiting. Uro: Reports today that she feels like she could have a UTI. Symptoms have been going on for the last 3 days. She has burning with urination and increased urinary frequency and urgency. No abdominal pain, flank pain, fever, chills, nausea or vomiting. 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 Fam hx: paternal grandfather had colon ca at age 70 [facility] Surgical History No pertinent past surgical history Family History Maternal Grandmother Anxiety Paternal Uncle Schizoaffective disorder Father Colon cancer Other FH: mental illness Social History (Updated 06/09/25 @ 15:40 by Minna Yi CMA) Housing: House Alcohol intake: current Patient Tobacco Use Status: Never used Tobacco e-Cigarette/Vaping Use: Never Used Second Hand Smoke Exposure: No service: No Current occupational status: employed Current occupation: [employer] Current occupational exposures/hazards: No Cognitive needs: No Hearing needs: No Vision needs: No Female Reproductive History Menstrual Age of Menarche: 12 Questionnaire Thrive Questionnaire Date Thrive assessed: 12/18/24 I am a: Patient What is your living situation today?: I have a steady place to live Within the past 12 months, did the food you bought not last and you didn't have the money to get more?: Never true Within the past 12 months, did you worry whether your food would run out before you got money to buy more?: Never true Do you have trouble paying for medicines?: No Do you have trouble getting transportation to medical appointments?: No Do you have trouble paying your heating and electricity bill?: No Do you have trouble taking care of your child, family member or friend?: No Do you have trouble with day-to-day activities such as bathing, preparing meals, shopping, managing finances, etc.?: No Are you currently unemployed and looking for a job?: No Are you interested in more education?: No Please select the resources that you would like help with: None Currently or been in a relationship where the following occur: No concerns reported THRIVE Score: 0 STEVEN-7 AMB Questionnaire STEVEN-7 Date STEVEN - 7 assessed: 12/24/24 Source: Developed by Drs. Paolo Graff, Alicja Ochoa, Milad Chamorro and colleagues, with an educational blayne from [employer]. Physical exam (Primary Care) Vital Signs: Last Vital Signs Pulse 92 08/18/25 14:12 Resp 12 08/18/25 14:12 BP 108/64 08/18/25 14:12 Pulse Ox 98 08/18/25 14:12 Oxygen Delivery Method Room Air 08/18/25 14:12 BMI result Body Mass Index 19.7 Tobacco/Smoking Status: Tobacco use Status Tobacco use date assessed 12/24/24 08/18/25 14:14 Patient Tobacco Use Status Never used Tobacco 08/18/25 14:14 e-Cigarette/Vaping Use Never Used 08/18/25 14:14 Thrive Assessment: Date of Thrive Assessment Date Thrive assessed 12/18/24 08/18/25 14:14 Currently or been in a relationship where the following occur: No concerns reported Const Orientation/consciousness: patient oriented x3 [facility] Ears: hearing grossly normal bilaterally Neck Thyroid: Thyroid normal Lymphatic: no lymphadenopathy noted Resp Auscultation: clear to auscultation bilaterally Cardio Rate: regular rate Rhythm: regular rhythm Heart sounds: S1 normal heart sound present and S2 normal heart sound present GI Inspection: Yes normal to inspection Palpation (GI): Soft to palpation and Other GI palpation findings present (nontender, no cva tenderness) Auscultation: normoactive bowel sounds Rectal Exam - Female: deferred Skin General skin exam: no rashes or lesions noted Neuro General: patient oriented x3, gait normal and no focal motor deficits Results Reviewed Results Reviewed: FINDINGS: Liver: The right lobe of the liver measures 12.3 cm in size. The left lobe of the liver measures 9.4 cm in size. The liver demonstrates normal homogeneous echotexture. No focal mass or intrahepatic biliary ductal dilatation is identified. There is normal hepatopedal flow in the portal vein. Gallbladder and biliary tree: The gallbladder is unremarkable, without evidence of calculi, wall thickening, or pericholecystic fluid. There is no sonographic Montano sign. The common bile duct is normal in caliber measuring 4 mm. Kidneys: The right kidney measures 10.2 cm in length. The left kidney measures 9.7 cm in length. The kidneys are unremarkable, without evidence of masses, hydronephrosis, or calculi. Pancreas: The pancreatic head, neck, and body are unremarkable. The pancreatic tail is obscured by bowel gas. Spleen: The spleen is normal in size and contour, measuring 10.5 cm in length. Abdominal aorta and inferior vena cava: The visualized portions of the abdominal aorta and inferior vena cava are normal in caliber. There is no free fluid in the abdomen. US/US abdomen complete IMPRESSION: Unremarkable abdominal ultrasound. Laboratory Tests 06/09/25 10:59 WBC 4.6 L RBC 5.29 Hgb 14.0 Hct 42.2 Plt Count 212 Sodium 140 Potassium 3.4 Chloride 109 H Carbon Dioxide 23 Anion Gap 11 L BUN 8 L Creatinine 0.71 Estimated GFR > 60 Fasting Glucose 84 AST 21 ALT 15 Alkaline Phosphatase 61 Total Protein 7.9 Albumin 5.1 H Triglycerides 49 Cholesterol 156 LDL Cholesterol, Calc 91 HDL Cholesterol 56 Vitamin B12 286 Folate 11.5 TSH 0.93 T.pallidum Ab (EIA) Nonreactive Hep Bs Antigen Negative Hepatitis C Ab (EIA) Nonreactive HIV 1&2 Ab/P24 Ag 4thGn Nonreactive Coding Level of Care Code Est Pt Level 4 (72466) Complex EM visit Add On G2211 Diagnoses Diarrhea R19.7 Abdominal pain R10.9 B12 deficiency E53.8 UTI symptoms R39.9 Assessment & Plan Assessment & Plan (1) Diarrhea: Code(s): R19.7 - Diarrhea, unspecified Category: Medical Plan: Slightly improved. Phone number provided to GI. (2) Abdominal pain: Code(s): R10.9 - Unspecified abdominal pain Category: Medical Plan: Currently asymptomatic. Abdominal exam is benign. (3) B12 deficiency: Code(s): E53.8 - Deficiency of other specified B group vitamins Category: Medical Plan: on B12 supplements and doing well (4) UTI symptoms: Code(s): R39.9 - Unspecified symptoms and signs involving the genitourinary system Category: Medical Plan: UA and culture ordered Symptoms are suspicious for a UTI. We will start patient on Macrobid. Discussed risks and benefits and adverse effects of this medication. We will follow up pending test results. Orders: Orders UA CC w/rflx Micro + Cult 08/18/25 R30.0 - Dysuria Medications: New nitrofurantoin monohyd/m-cryst 100 mg (Macrobid) must administer with a meal/food 100 mg PO Q12H 14 caps 0RF 7 days nitrofurantoin monohyd/m-cryst 100 mg (Macrobid) must administer with a meal/food 100 mg PO Q12H 7 days 14 caps 0RF Patient Instructions: [phone] -GI department
--- OUTSIDE RECORDS SUMMARY | 2025-08-18 17:22 | XMS_ITS | Encounter Summary ---
Author Organization [facility] Address [address] [place] [address] Phone Care Team Providers Care Sheep Farm Worker Name Role Phone Provider, Janine NICHOLAS Primary Care Provider [phone] Reason for Visit * Reason Comments Med Refill Encounter Details Date Type Department Care Team ([facility] st Contact Info) Description 06/23/2019 Refill [facility] [address] [address] Niles Gray MD Other mixed anxiety disorders [...] disorders documented in this encounter Care Teams Sheep Farm Worker Relationship Specialty Start Date End Date Provider, MD Janine [address] [place] [address] PCP - General Pediatrics 09/26/24 10/13/24 documented as of this encounter
--- OUTSIDE RECORDS SUMMARY | 2025-08-18 17:22 | XMS_ITS | Encounter Summary ---
Author Organization [facility] Address [address] [place] [address] Phone Care Team Providers Care Interactive Media Designer Name Role Phone Provider, Janine NICHOLAS Primary Care Provider [phone] Reason for Visit * Reason Comments Med Refill Encounter Details Date Type Department Care Team ([facility] st Contact Info) Description 08/24/2019 Refill [facility] [place] [address] [place] [address] Niles Rosales MD [address] [place] [address] Other mixed anxiety disorders Social History Tobacco [...] Nino LPN - 08/24/2019 9:23 AM EST [facility] PCP BLL: pharm fax refill request sertaline. Pt has PE for 09/01. EH documented in this encounter Plan of Treatment Not on file documented as of this encounter Visit Diagnoses Diagnosis Other mixed anxiety disorders documented in this encounter Care Teams Interactive Media Designer Relationship Specialty Start Date End Date Provider, MD Janine [address] [place] [address] PCP - General Pediatrics 09/26/24 10/13/24 documented as of this encounter
--- OUTSIDE RECORDS SUMMARY | 2025-08-18 17:22 | XMS_ITS | Encounter Summary ---
Author Organization [facility] Address [address] [place] [address] Phone Care Team Providers Care Service Support Representative Name Role Phone Provider, Janine NICHOLAS Primary Care Provider [phone] Reason for Visit * Reason Comments Med Refill Encounter Details Date Type Department Care Team ([facility] st Contact Info) Description 09/23/2021 Refill [facility] [address] [place] [address] Niles Gray MD Other mixed anxiety disorders [...] documented in this encounter Care Teams Service Support Representative Relationship Specialty Start Date End Date Provider, MD Janine [address] [place] [id number] PCP - General Pediatrics 09/26/24 10/13/24 documented as of this encounter
--- OUTSIDE RECORDS SUMMARY | 2025-08-18 17:22 | XMS_ITS | Encounter Summary ---
Author Organization [facility] Address [address] [place] [address] Phone Care Team Providers Care Corn Grower Name Role Phone Provider, Janine NICHOLAS Primary Care Provider [phone] Encounter Details Date Type Department Care Team (Late st Contact Info) Description 08/10/2015 Documentation [facility] [place] Family Medicine [address] [place] [address] Family Medicine, Physician [address] [place], [place] [id number] Social History Tobacco Use Types Packs/Day Years [...] on filedocumented in this encounter Care Teams Corn Grower Relationship Specialty Start Date End Date Provider, MD Janine [address] [place] [address] PCP - General Pediatrics 09/26/24 10/13/24 documented as of this encounter
--- OUTSIDE RECORDS SUMMARY | 2025-08-18 17:22 | XMS_ITS | Encounter Summary ---
Author Organization [facility] Address [address] [place] [address] Phone Care Team Providers Care Camera Storage Clerk Name Role Phone Provider, Janine NICHOLAS Primary Care Provider [phone] Encounter Details Date Type Department Care Team (Late st Contact Info) Description 07/18/2011 Documentation [facility] [place] Family Medicine [address] [place] [address] Family Medicine, Physician [address] [place], [place] [phone] Social History Tobacco Use Types Packs/Day Years [...] on filedocumented in this encounter Care Teams Camera Storage Clerk Relationship Specialty Start Date End Date Provider, MD Janine [address] [place] [address] PCP - General Pediatrics 09/26/24 10/13/24 documented as of this encounter
--- OUTSIDE RECORDS SUMMARY | 2025-08-18 17:22 | XMS_ITS | Clinical Summary ---
Author Organization [facility] Address [address] [place] [address] Phone Care Team Providers Care Casket Inspector Name Role Phone Unavailable Primary Care Provider [...] save says ate less with anxiety/panic in [place]. Probably true but should rule out hypo/hyper [...] friends, no panic attacks since trip to [place] in the summer. 11/30: continues to do [...] time. General Guidelines: www.healthychildren.org Nature and Gardening: Https://Strategic Science & Technologies.org/ResourceType/infosheet/, Https://Snap Fitness.ERMS Corporation; www.childrenandnature.org Www.natureplayqld.org.au (in [place], still good for here) Https://Apica.org/ Academic and creative: www.Public Insight Corporation.org; www.blog.Mail.com Media Corporation.org Tips for online learning: www.Safeway Safety Step Drawing: On YouTube: Lunch Doodle with ProductBio, and Draw everyday with Finesse[employer]ch [employer], also www.Tagent Physical Activity Coin MyFreightWorld -Like them for workouts Www.WIV Labs Reaching out: www.BitrockrpeaceAscendant Groupl.org Music: WRSI Quaranthemes with Bryant Joshua 6-9am, [...] (04/12/2023): Had panic attacks on trip to [place], see history, when had stress of mom's [...] Thyroid disease, No family history of *Sudden /NH under 55, No family history of Migraines, [...] 11/22/2021 Procedures * Due to [place] Charge-[employer] International [employer] law, this organization might not be sharing sensitive test results. Procedure Name Priority Date/Time Associated Diagnosis Comments CHLAMYDIA AND GONORRHEA, AMPLIFIED Routine 04/15/2024 2:46 PM EDT Encounter for screening examination for chlamydial infection from Last 3 Months or Most Recently Relevant to Health Maintenance Results * Due to [place] Charge-[employer] law, this organization might not be sharing sensitive test results. * Chlamydia and Gonorrhoea, Amplified (Urine) (04/15/2024 2:46 PM EDT) C trach TYRELL Negative Negative [facility] N gonorrhoeae TYRELL Negative Negative [facility] Urine (Urine, Random (not clean void)) 04/15/2024 2:46 PM EDT 04/15/2024 Comment:UR Narrative [facility] - 04/16/2024 4:08 PM EDT Performed at: 01 - [facility] [place] [address], [address], [place], [place] [id number] Documentation Specialist: Levon Aguilar MD, Phone: [phone] us Niles Gray MD LAB MICROBIOLOGY - GENERAL OR DERABLES Final Result [facility] [address] [place] [address] from Last 3 Months or Most Recently Relevant to Health Maintenance
--- OUTSIDE RECORDS SUMMARY | 2025-08-18 17:22 | XMS_ITS | Encounter Summary ---
Author Organization [facility] Address [address] [place] [address] Phone Care Team Providers Care Ring Packer Name Role Phone Provider, Janine NICHOLAS Primary Care Provider [phone] Encounter Details Date Type Department Care Team (Late st Contact Info) Description 04/29/2017 Documentation [facility] [place] Family Medicine [address] [place] [address] Family Medicine, Physician [address] [place], [place] [phone] Social History Tobacco Use Types Packs/Day Years [...] on filedocumented in this encounter Care Teams Ring Packer Relationship Specialty Start Date End Date Provider, MD Janine [address] [place] [address] PCP - General Pediatrics 09/26/24 10/13/24 documented as of this encounter
--- OUTSIDE RECORDS SUMMARY | 2025-08-18 17:22 | XMS_ITS | Encounter Summary ---
Author Organization [facility] Address [address] [place] [address] Phone Care Team Providers Care Acquisition Lead Name Role Phone Provider, Janine NICHOLAS Primary Care Provider [phone] Encounter Details Date Type Department Care Team (Late st Contact Info) Description 01/19/2010 Documentation [facility] [place] Family Medicine [address] [place] [address] Family Medicine, Physician [address] [place], [place] [phone] Social History Tobacco Use Types Packs/Day Years [...] on filedocumented in this encounter Care Teams Acquisition Lead Relationship Specialty Start Date End Date Provider, MD Janine [address] [place] [address] PCP - General Pediatrics 09/26/24 10/13/24 documented as of this encounter
--- OUTSIDE RECORDS SUMMARY | 2025-08-18 17:22 | XMS_ITS | Encounter Summary ---
Author Organization [facility] Address [address] [place] [address] Phone Care Team Providers Care Coating Operator Name Role Phone Provider, Janine NICHOLAS Primary Care Provider Encounter Details Date Type Department Care Team (Late st Contact Info) Description 04/04/2011 Documentation [facility] [place] Family Medicine [address] [place] [address] Family Medicine, Physician [address] [place], [place] [phone] Social History Tobacco Use Types Packs/Day Years [...] on filedocumented in this encounter Care Teams Coating Operator Relationship Specialty Start Date End Date Provider, MD Janine [address] [place] [address] PCP - General Pediatrics 09/26/24 10/13/24 documented as of this encounter
--- OUTSIDE RECORDS SUMMARY | 2025-08-18 17:22 | XMS_ITS | Encounter Summary ---
Author Organization [facility] Address [address] [place] [address] Phone Care Team Providers Care Taxi Truck Driver Name Role Phone Provider, Janine NICHOLAS Primary Care Provider [phone] Encounter Details Date Type Department Care Team (Late st Contact Info) Description 01/06/2010 Documentation [facility] [place] [address] [place] [address] Family Medicine, Physician [address] [place], [place] [phone] Social History Tobacco Use Types Packs/Day Years [...] on filedocumented in this encounter Care Teams Taxi Truck Driver Relationship Specialty Start Date End Date Provider, MD Janine [address] [place] [address] PCP - General Pediatrics 09/26/24 10/13/24 documented as of this encounter
--- OUTSIDE RECORDS SUMMARY | 2025-08-18 17:22 | XMS_ITS | Encounter Summary ---
Author Organization [facility] Address [address] [place] [address] Phone Care Team Providers Care Sole Tier Name Role Phone Provider, Janine NICHOLAS Primary Care Provider [phone] Encounter Details Date Type Department Care Team (Late st Contact Info) Description 04/04/2011 Documentation [facility] [place] Medicine [address] [place] [address] Family Medicine, Physician [address] [place], [place] [phone] Social History Tobacco Use Types Packs/Day Years [...] on filedocumented in this encounter Care Teams Sole Tier Relationship Specialty Start Date End Date Provider, MD Janine [address] [place] [address] PCP - General Pediatrics 09/26/24 10/13/24 documented as of this encounter
--- OUTSIDE RECORDS SUMMARY | 2025-08-18 17:22 | XMS_ITS | Encounter Summary ---
Author Organization [facility] Address [address] [place] [address] Phone Care Team Providers Care Nurse Ortho Name Role Phone Provider, Janine NICHOLAS Primary Care Provider [phone] Encounter Details Date Type Department Care Team ([facility] st Contact Info) Description 05/23/2017 Conversion Encounter [facility] [address] [address] Social History Tobacco Use Types Packs/Day Years [...] on filedocumented in this encounter Care Teams Nurse Ortho Relationship Specialty Start Date End Date Provider, MD Janine [address] [place] [phone] PCP - General Pediatrics 09/26/24 10/13/24 documented as of this encounter
--- OUTSIDE RECORDS SUMMARY | 2025-08-18 17:22 | XMS_ITS | Encounter Summary ---
Author Organization [facility] Address [address] [place] [address] Phone Care Team Providers Care Tile Professional Name Role Phone Provider, Janine NICHOLAS Primary Care Provider [phone] Reason for Visit * Reason Comments Med Refill Encounter Details Date Type Department Care Team ([facility] Contact Info) Description 02/25/2022 Refill [facility] [address] [place] [address] Niles Gray MD Fatigue, unspecified type; Iron [...] she should be getting vitamins from her mechanic welder truck driver. Is she ? Or was he just giving them as a precaution? Could you check with her? And if she's , can you have her call her mechanic welder truck driver? * Telephone Encounter - Myla Wright [place] - 02/27/2022 9:55 AM EDT Pharm refill for pre janice vitamins. Message to covering provider. DG out. documented in this encounter Plan of Treatment Not on file documented as of this encounter Visit Diagnoses Diagnosis Fatigue, unspecified type Iron deficiency Disorders of iron metabolism documented in this encounter Care Teams Tile Professional Relationship Specialty Start Date End Date Provider, MD Janine [address] [place] [address] PCP - General Pediatrics 09/26/24 10/13/24 documented as of this encounter
--- OUTSIDE RECORDS SUMMARY | 2025-08-18 17:22 | XMS_ITS | Encounter Summary ---
Author Organization [facility] Address [address] [place] [address] Phone Care Team Providers Care Rail Switchman Name Role Phone Provider, Jannie NICHOLAS Primary Care Provider [phone] Encounter Details Date Type Department Care Team (Late st Contact Info) Description 04/04/[address] [facility] [place] Family Medicine [address] [place] [address] Family Medicine, Physician [address] [place], [place] [phone] Social History Tobacco Use Types Packs/Day Years [...] on filedocumented in this encounter Care Teams Rail Switchman Relationship Specialty Start Date End Date Provider, MD Janine [address] [place] [address] PCP - General Pediatrics 09/26/24 10/13/24 documented as of this encounter
--- OUTSIDE RECORDS SUMMARY | 2025-08-18 17:22 | XMS_ITS | Encounter Summary ---
Author Organization [facility] Address [address] [place] [address] Phone Care Team Providers Care Senior Corporate Recruiter Name Role Phone Provider, Janine NICHOLAS Primary Care Provider [phone] Encounter Details Date Type Department Care Team (Late st Contact Info) Description 04/23/2012 Documentation [facility] [place] Family Medicine [address] [place] [address] Family Medicine, Physician [address] [place], [place] [phone] Social History Tobacco Use Types Packs/Day Years [...] filedocumented in this encounter Care Teams Senior Corporate Recruiter Relationship Specialty Start Date End Date Provider, MD Janine [address] [place] [address] PCP - General Pediatrics 09/26/24 10/13/24 documented as of this encounter
--- OUTSIDE RECORDS SUMMARY | 2025-08-18 17:22 | XMS_ITS | Encounter Summary ---
Author Organization [facility] Address [address] [place] [address] Phone Care Team Providers Care Singeing Torch Operator Name Role Phone Provider, Janine NICHOLAS Primary Care Provider [phone] Encounter Details Date Type Department Care Team (Late st Contact Info) Description 08/10/2015 Documentation [facility] [place] [address] [place] [address] Family Medicine, Physician [address] [place] [phone] Social History Tobacco Use Types Packs/Day Years [...] on filedocumented in this encounter Care Teams Singeing Torch Operator Relationship Specialty Start Date End Date Provider, MD Janine [address] [place] [address] PCP - General Pediatrics 09/26/24 10/13/24 documented as of this encounter
--- OUTSIDE RECORDS SUMMARY | 2025-08-18 17:22 | XMS_ITS | Encounter Summary ---
Author Organization [facility] Address [address] [place] [address] Phone Care Team Providers Care Photovoltaic Installer Name Role Phone Provider, Janine NICHOLAS Primary Care Provider [phone] Encounter Details Date Type Department Care Team (Late st Contact Info) Description 07/18/2011 Documentation [facility] [place] [address] [place] [address] Family Medicine, Physician [address] [place] [phone] Social History Tobacco Use Types Packs/Day Years [...] on filedocumented in this encounter Care Teams Photovoltaic Installer Relationship Specialty Start Date End Date Provider, MD Janine [address] [place] [address] PCP - General Pediatrics 09/26/24 10/13/24 documented as of this encounter
--- OUTSIDE RECORDS SUMMARY | 2025-08-18 17:22 | XMS_ITS | Encounter Summary ---
Author Organization [facility] Address [address] [place] [address] Phone Care Team Providers Care Nuclear Physician Name Role Phone Provider, Janine NICHOLAS Primary Care Provider [phone] Encounter Details Date Type Department Care Team (Late st Contact Info) Description 08/23/2016 Documentation [facility] [place] Family Medicine [address] [place] [address] Family Medicine, Physician [address] [place], [place] [phone] Social History Tobacco Use Types Packs/Day Years [...] filedocumented in this encounter Care Teams Nuclear Physician Relationship Specialty Start Date End Date Provider, MD Janine [address] [place] [address] PCP - General Pediatrics 09/26/24 10/13/24 documented as of this encounter
--- OUTSIDE RECORDS SUMMARY | 2025-08-18 17:23 | XMS_ITS | Encounter Summary ---
Author Organization [facility] Address [address] [place] [address] Phone Care Team Providers Care Bottom Hoop Driver Name Role Phone Provider, Janine NICHOLAS Primary Care Provider [phone] Encounter Details Date Type Department Care Team (Late st Contact Info) Description 08/05/2013 Documentation [facility] [place] [address] [place] [address] Family Medicine, Physician [address] [place], [place] [phone] Social History Tobacco Use Types Packs/Day Years [...] on filedocumented in this encounter Care Teams Bottom Hoop Driver Relationship Specialty Start Date End Date Provider, MD Janine [address] [place] [address] PCP - General Pediatrics 09/26/24 10/13/24 documented as of this encounter
--- OUTSIDE RECORDS SUMMARY | 2025-08-18 17:23 | XMS_ITS | Encounter Summary ---
Author Organization [facility] Address [address] [place] [address] Phone Care Team Providers Care Pool Installer Name Role Phone Provider, Janine NICHOLAS Primary Care Provider [phone] Encounter Details Date Type Department Care Team (Late st Contact Info) Description 08/05/2013 Documentation [facility] [place] [facility] [place] [address] [place] [address] Family Medicine, Physician [address], [place] [phone] Social History Tobacco Use Types Packs/Day Years [...] on filedocumented in this encounter Care Teams Pool Installer Relationship Specialty Start Date End Date Provider, MD Janine [address] [place] [address] PCP - General Pediatrics 09/26/24 10/13/24 documented as of this encounter
--- OUTSIDE RECORDS SUMMARY | 2025-08-18 17:23 | XMS_ITS | Encounter Summary ---
Author Organization [facility] Address [address] [place] [address] Phone Care Team Providers Care Hvac Sales Representative Name Role Phone Provider, Janine NICHOLAS Primary Care Provider [phone] Encounter Details Date Type Department Care Team (Late st Contact Info) Description 04/23/2012 Documentation [facility] [place] Family Medicine [address] [place] [address] Family Medicine, Physician [address] [place], [place] [phone] Social History Tobacco Use Types Packs/Day Years [...] on filedocumented in this encounter Care Teams Hvac Sales Representative Relationship Specialty Start Date End Date Provider, MD Janine [address] [place] [address] PCP - General Pediatrics 09/26/24 10/13/24 documented as of this encounter
--- OUTSIDE RECORDS SUMMARY | 2025-08-18 17:23 | XMS_ITS | Encounter Summary ---
Author Organization [facility] Address [address] [place] [address] Phone Care Team Providers Care Stenographer Secretary Name Role Phone Provider, Janine NICHOLAS Primary Care Provider [phone] Encounter Details Date Type Department Care Team (Late st Contact Info) Description 08/23/2016 Documentation [facility] [place] Family Medicine [address] [place] [address] Family Medicine, Physician [address] [place], [place] [phone] Social History Tobacco Use Types Packs/Day Years [...] on filedocumented in this encounter Care Teams Stenographer Secretary Relationship Specialty Start Date End Date Provider, MD Janine [address] [place] [address] PCP - General Pediatrics 09/26/24 10/13/24 documented as of this encounter
--- OUTSIDE RECORDS SUMMARY | 2025-08-18 17:23 | XMS_ITS | Encounter Summary ---
Author Organization [facility] Address [address] [place] [address] Phone Care Team Providers Care Civil Engineering Draftsperson Name Role Phone Provider, Janine NICHOLAS Primary Care Provider [phone] Encounter Details Date Type Department Care Team (Late st Contact Info) Description 08/23/2016 Documentation [facility] [place] [address] [place] [address] Family Medicine, Physician [address] [place], [place] [phone] Social History Tobacco Use Types Packs/Day Years [...] on filedocumented in this encounter Care Teams Civil Engineering Draftsperson Relationship Specialty Start Date End Date Provider, MD Janine [address] [place] [address] PCP - General Pediatrics 09/26/24 10/13/24 documented as of this encounter
== END 2025-08-18 14:51 | disposition home or self-care (01) ==
LOC: HO.HMCFM 14:08
PROVIDERS: PCP Physician Assistant; Visit Provider Physician Assistant
DX: R19.7 Diarrhea, unspecified (principal); R10.9 Unspecified abdominal pain; E53.8 Deficiency of other specified B group vitamins; R39.9 Unspecified symptoms and signs involving the genitourinary system

== ENCOUNTER 2025-08-18 14:07 | Outpatient (REF) | payer BC, SELFPAY ==
[2025-08-18 18:27] LABS: Appearance Urine Cloudy; Glucose Urine UA Negative (Negative); PH 7.5 (5.0-9.0); Specific Gravity - Urine 1.025 (1.005-1.025); UMIC TRIGGER UACC YES
[2025-08-18 18:37] LABS: UACC Culture Trigger YES
== END 2025-08-18 14:08 | disposition home or self-care (01) ==
LOC: HO.LNP 14:07
PROVIDERS: PCP Physician Assistant; Visit Provider Physician Assistant
DX: R30.0 Dysuria (principal); R19.7 Diarrhea, unspecified; R10.9 Unspecified abdominal pain; E53.8 Deficiency of other specified B group vitamins; R39.9 Unspecified symptoms and signs involving the genitourinary system; Z79.899 Other long term (current) drug therapy
CPT/HCPCS: 81001; 87086